=== PATIENT | male | born 1945 | race Caucasian/White ===

== ENCOUNTER 2020-07-14 08:52 | Outpatient (REF) | payer MEDICARE, SELFPAY ==
[2020-07-14 11:47] LABS: Vitamin B12 485 pg/mL (200-900)
[2020-07-15 21:32] LABS: Lyme Abs Screen <0.90 index
== END 2020-07-14 08:53 | disposition home or self-care (01) ==
LOC: HO.LAB 08:52
PROVIDERS: PCP Internal Medicine; Visit Provider Psychiatry & Neurology Neurology
DX: G20 Parkinson's disease (principal)
CPT/HCPCS: 82607; 86618

== ENCOUNTER 2020-09-14 08:04 | Outpatient (REF) | payer MEDICARE, SELFPAY ==
[2020-09-14 08:45] LABS: MANUAL DIFF FLAG NO
[2020-09-14 08:53] LABS: Basophils Percent Auto 0.5 % (0-2); Eosinophils Absolute Auto 0.3 X10*3/uL (0.0-0.4); Eosinophils Percent Auto 3.2 % (0-4); Hematocrit 44.6 % (42-52); Hemoglobin 14.4 g/dl (14.0-18.0); Imm Gran Abs Auto 0.03 X10*3/uL (0.00-0.03); Imm Gran Pct Auto 0.4 % (0.0-0.4); Lymphocytes Absolute Auto 1.9 X10*3/uL (1.2-4.9); Lymphocytes Percent Auto 24.2 % (20-40); Mean Corpuscular HGB Conc 32.3 g/dl (31.0-36.0); Mean Corpuscular Hemoglobin 32.1 pg (27.0-33.0); Mean Corpuscular Volume 99.3 fL (80-98); Mean Platelet Volume 9.8 fL (9.4-12.4); Monocytes Absolute Auto 0.6 X10*3/uL (0.1-1.2); Neutrophils Absolute Auto 5.1 X10*3/uL (2.0-8.3); Neutrophils Percent Auto 63.7 % (45-73); Platelet Count 183 X10*3/uL (160-400); Red Blood Count 4.49 X10*6/uL (4.60-5.80); Red Cell Distribution Width 13.1 % (11.0-16.0); White Blood Count 7.9 X10*3/uL (4.8-10.8)
[2020-09-14 09:21] LABS: Alanine Aminotransferase 6 U/L (0-40); Albumin Level 3.9 g/dL (3.5-5.0); Alkaline Phosphatase 115 U/L (39-117); Anion Gap 12 (12-20); Aspartate Amino Transferase 28 U/L (5-37); Bilirubin Total 0.6 mg/dL (0.0-1.0); Blood Urea Nitrogen 23 mg/dL (9-16); Calcium 8.6 mg/dL (8.4-10.2); Carbon Dioxide 27 mmol/L (22-29); Chloride 105 mmol/L (96-108); Estimated Glomerular Filt Rate 56; Glucose Random 110 mg/dL (60-115); Potassium 4.7 mmol/l (3.3-5.1); Sodium 139 mmol/L (135-145); Total Protein 7.2 g/dL (6.5-8.0)
[2020-09-14 09:42] LABS: Thyroid Stimulating Hormone 2.42 uIU/mL (0.32-4.0)
[2020-09-14 09:53] LABS: Vitamin B12 349 pg/mL (200-900)
== END 2020-09-14 08:05 | disposition home or self-care (01) ==
LOC: HO.LAB 08:04
PROVIDERS: Absent Provider Internal Medicine; PCP Internal Medicine; Visit Provider Internal Medicine
DX: E78.00 Pure hypercholesterolemia, unspecified (principal); I25.10 Atherosclerotic heart disease of native coronary artery without angina pectoris
CPT/HCPCS: 36415; 80053; 82607; 84443; 85025

== ENCOUNTER → 2020-09-15 09:23 | Outpatient (BNVA) | payer MEDICARE, SELFPAY | PROVIDERS: PCP Internal Medicine; Visit Provider Internal Medicine | DX: I25.10 Atherosclerotic heart disease of native coronary artery without angina pectoris (principal); I48.0 Paroxysmal atrial fibrillation; I95.1 Orthostatic hypotension; Z95.3 Presence of xenogenic heart valve | CPT/HCPCS: 99212 ==

== ENCOUNTER 2020-11-03 10:00 | Outpatient (RCR) | payer MEDICARE, SELFPAY ==
--- NOTE | 2020-10-13 14:33 | MHC.PT.EP ---
[facility] [place] Office [place] Office [place] Office [address] Saji Rivas 140 [facility] [phone] F: [phone] F: [phone] F: [phone] F: [phone] Physical Therapy Plan of Care Date of Evaluation: 10/13/20 Date of Surgery: Diagnosis: Parkinson's Disease Assessment: The patient is a pleasant 75 year old male that is interested in maintaining his current mobility status with a recent diagnosis of Parkinson's Disease. He would like to maintain his strength and current functional level. At this time he has significant rigidity in his thoracolumbar column as well as an altered gait pattern. He has some weakness in his postural muscles. He is a good candidate to improve his postural strength, functional balance. Frequency and Duration: The patient will be seen 2x/week x 4 weeks Short Term Goals: 1. Pt to be able to improve sit to stand posture and functional movement. 2. Pt to be able to improve understanding of HEP. 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 pt to be able to do all functional movements such as squatting, bending, and reaching overhead with good balance and motor control.. 2. Pt to be able to walk with a heel to toe reciprocal gait pattern with adequate toe clearance. Treatment Plan: Modalities to reduce pain, spasms and effusion. Manual therapy to restore motion and function. Therapeutic exercise to improve strength and flexibility. Neuromuscular re-education for posture and balance. Therapeutic activities to return to functional activities of daily living. Electronically signed by: Vanda Reyes PT DPT Please sign and return to therapist. Thank you for your referral.
--- NOTE | 2021-01-12 08:11 | MHC.PT.DC ---
[facility] [place] Office [place] Office [place] Office [address] Saji Rivas [address] [phone] F: [phone] F: [phone] F: [phone] F: [phone] Physical Therapy Discharge Report Diagnosis: Parkinson's Disease Date of Surgery: 2019 Date of Evaluation: 10/13/20 Date of Discharge: 12/12/20 Treatments to Date: 5 Cancellations to Date: 0 No Shows to Date: 0 Discharge Status: Independent with HEP Discharge Summary: Pt d/c from skilled PT. He had been given a HEP with pictures and instructions. Electronically signed by: Vanda Reyes PT DPT Please sign and return to therapist. Thank you for your referral.
== END 2021-06-08 13:32 | disposition home or self-care (01) ==
LOC: HO.PT 10:00
PROVIDERS: PCP Internal Medicine; Visit Provider Internal Medicine
DX: G20 Parkinson's disease (principal); R26.2 Difficulty in walking, not elsewhere classified
CPT/HCPCS: 97110; 97140; 97162; 97530

== ENCOUNTER 2021-02-18 13:34 | Outpatient (REF) | payer MEDICARE, SELFPAY ==
--- NOTE | ~2021-02-18 | XR_ITS ---
EXAMINATION: XR FOOT, LEFT CLINICAL INFORMATION: Left foot pain. Status post fall. COMPARISON: None. TECHNIQUE: AP, lateral, and oblique views of the left foot. FINDINGS: There is no visible acute fracture, dislocation or subluxation. Moderate hypertrophic spurring is seen along the dorsal intertarsal joints, calcaneal heel and retrocalcaneal regions. Moderate enthesophyte is also seen along the lateral sesamoid bone inferior to the distal 1st metatarsal. The ankle mortise and subtalar joints are normal. The soft tissues are normal. XR/XR foot LT min 3V IMPRESSION: No acute fracture or dislocation seen. Extensive degenerative spurring as described above. No abnormal soft tissue swelling.
== END 2021-02-18 13:35 | disposition home or self-care (01) ==
LOC: HO.XRAY 13:34
PROVIDERS: PCP Internal Medicine; Visit Provider Internal Medicine
DX: M79.672 Pain in left foot (principal); Z91.81 History of falling
CPT/HCPCS: 73630

== ENCOUNTER 2021-03-11 10:00 | Outpatient (RCR) | payer MEDICARE, SELFPAY ==
--- NOTE | 2021-01-31 16:10 | MHC.PT.EP ---
[facility] [place] Office [place] Office [place] Office [address] Saji Rivas [address] [phone] F: [phone] F: [phone] F: [phone] F: [phone] Physical Therapy Plan of Care Date of Evaluation: Date of Surgery: NA Diagnosis: PARKINSONS DISEASE Assessment: Pt IS 75 YO M WHO WAS RECENTLY SEEN IN PT FOR PARKINSONS (5 VISITS FROM 10/13/20-12/12/20) BUT HAD TO CANCEL LAST APPTS BECAUSE HIS 'S CA TREATMENTS. Pt REPORTS HE HAS BEEN WORKING ON SOME EXERCISES SINCE HE ENDED PT. REPORTS NO SPECIFIC LIMITATIONS AT THIS TIME BUT WANTS TO STAY AHEAD OF THE DISEASE. PRESENTS TO PT WITH SOME DECREASE IN HIP STRENGTH AND DECREASED BALANCE WITH REPORT THAT L LEG FEELS WEAKER THAN R AND HAS SOME L THIGH DISCOMFORT. Pt SHOULD BENEFIT FROM PT FOR BIG PROGRAM WITH TRANSITION TO CARDIAC REHAB AND/OR DOPAFIT UPON DC FROM PT. Frequency and Duration: The patient will be seen 2X/WK X 6 WKS Short Term Goals: 1. I HEP FOR LE/CORE STRENGTHENING 2. I BIG PROGRAM Intermediate Goals: 1. 30 SEC SIT<>STAND REPS>/= 11 2. INCREASE SLS TIME B >/= 10 SEC 3. DC PLAN FOR CONTINUING EX PROG (CARDIAC REHAB/DOPAFIT) Treatment Plan: Modalities to reduce pain, spasms and effusion. Manual therapy to restore motion and function. Therapeutic exercise to improve strength and flexibility. Neuromuscular re-education for posture and balance. Therapeutic activities to return to functional activities of daily living. Electronically signed by: WU BOLTON PT Please sign and return to therapist. Thank you for your referral.
--- NOTE | 2021-04-27 13:08 | MHC.PT.DC ---
[facility] [place] Office [place] Office [place] Office [address] Saji Rivas [address] [phone] F: [phone] F: [phone] F: [phone] F: [phone] Physical Therapy Discharge Report Diagnosis: PARKINSONS DISEASE Date of Surgery: NA Date of Evaluation: 01/31/21 Date of Discharge: 04/27/21 Treatments to Date: 6 Cancellations to Date: No Shows to Date: Discharge Status: Patient Elected to Stop Discharge Summary: Pt LAST SEEN ON 03/11/21 WHEN HE REPORTED SOME ANKLE PAIN AND REQUESTED SHORTENED SESSION. Pt THEN NOT SEEN AFTER THAT. PRIMARY PT CALLED Pt ON 04/27/21 TO ? STATUS. Pt REPORTS HE HAS CONTACTED HIS PCP FOR A NEW REFERRAL. ED THAT A NEW EVAL WILL BE DONE SINCE IT HAS BEEN OVER 1 MONTH SINCE LAST SESSION. ALSO QUESTIONED Pt RE DOPAFIT (PARKINSONS EX PROGRAM IN [place] THAT HE WAS GOING TO LOOK INTO, BUT HE SAID HE NEVER CONTACTED THEM OR STOPPED BY TO CHECK IT OUT). ED THAT THIS WOULD BE A GOOD RESOURCE FOR HIM AND A GOOD PROGRAM TO HELP MANAGE HIS PARKINSONS. WILL DC THIS CHART AT THIS TIME FOR RE-EVAL SOON Electronically signed by: WU BOLTON PT Please sign and return to therapist. Thank you for your referral.
== END 2021-04-27 13:20 | disposition home or self-care (01) ==
LOC: HO.PT 10:00
PROVIDERS: PCP Internal Medicine; Visit Provider Internal Medicine
DX: G20 Parkinson's disease (principal)
CPT/HCPCS: 97110; 97112; 97162; 97530

== ENCOUNTER 2021-06-10 09:51 | Outpatient (REF) | payer MEDICARE, SELFPAY ==
[2021-06-10 10:27] LABS: MANUAL DIFF FLAG NO
[2021-06-10 10:40] LABS: Basophils Percent Auto 0.5 % (0-2); Eosinophils Absolute Auto 0.1 X10*3/uL (0.0-0.4); Eosinophils Percent Auto 2.1 % (0-4); Hemoglobin 12.7 g/dl (14.0-18.0); Imm Gran Abs Auto 0.02 X10*3/uL (0.00-0.03); Imm Gran Pct Auto 0.3 % (0.0-0.4); Lymphocytes Absolute Auto 1.1 X10*3/uL (1.2-4.9); Lymphocytes Percent Auto 17.4 % (20-40); Mean Corpuscular HGB Conc 32.6 g/dl (31.0-36.0); Mean Corpuscular Hemoglobin 32.2 pg (27.0-33.0); Mean Platelet Volume 10.3 fL (9.4-12.4); Monocytes Absolute Auto 0.4 X10*3/uL (0.1-1.2); Monocytes Percent Auto 6.9 % (2-11); Neutrophils Absolute Auto 4.4 X10*3/uL (2.0-8.3); Neutrophils Percent Auto 72.8 % (45-73); Platelet Count 151 X10*3/uL (160-400); Red Blood Count 3.94 X10*6/uL (4.60-5.80); Red Cell Distribution Width 12.8 % (11.0-16.0); White Blood Count 6.1 X10*3/uL (4.8-10.8)
[2021-06-10 11:12] LABS: Alanine Aminotransferase 7 U/L (0-40); Albumin Level 3.5 g/dL (3.5-5.0); Alkaline Phosphatase 113 U/L (39-117); Anion Gap 9 (12-20); Aspartate Amino Transferase 25 U/L (5-37); Bilirubin Total 0.8 mg/dL (0.0-1.0); Blood Urea Nitrogen 13 mg/dL (9-16); Calcium 8.6 mg/dL (8.4-10.2); Carbon Dioxide 28 mmol/L (22-29); Chloride 107 mmol/L (96-108); Estimated Glomerular Filt Rate > 60; Glucose Random 214 mg/dL (60-115); Potassium 3.4 mmol/L (3.3-5.1); Sodium 141 mmol/L (135-145); Total Protein 6.8 g/dL (6.5-8.0); Uric Acid 4.3 mg/dL (3.4-7.0)
== END 2021-06-10 09:52 | disposition home or self-care (01) ==
LOC: HO.10HDL 09:51
PROVIDERS: Visit Provider Internal Medicine
DX: I25.10 Atherosclerotic heart disease of native coronary artery without angina pectoris (principal); E78.00 Pure hypercholesterolemia, unspecified; N18.9 Chronic kidney disease, unspecified; M10.9 Gout, unspecified
CPT/HCPCS: 36415; 80053; 84550; 85025

== ENCOUNTER 2021-06-14 10:03 | Outpatient (REF) | payer MEDICARE, SELFPAY ==
[2021-06-14 10:47] LABS: Estimated Average Glucose 111 mg/dL; Hemoglobin A1c % 5.5 %
== END 2021-06-14 10:04 | disposition home or self-care (01) ==
LOC: HO.10HDL 10:03
PROVIDERS: Visit Provider Internal Medicine
DX: R73.03 Prediabetes (principal)
CPT/HCPCS: 36415; 83036

== ENCOUNTER → 2021-07-18 14:05 | Outpatient (BNVA) | payer MEDICARE, SELFPAY | PROVIDERS: PCP Internal Medicine; Referring Provider Internal Medicine; Visit Provider Internal Medicine | DX: I25.10 Atherosclerotic heart disease of native coronary artery without angina pectoris (principal); I48.0 Paroxysmal atrial fibrillation; I95.1 Orthostatic hypotension; I44.0 Atrioventricular block, first degree; Z95.3 Presence of xenogenic heart valve | CPT/HCPCS: 93005; 99212 ==

== ENCOUNTER 2021-08-03 12:15 | Outpatient (REF) | payer MEDICARE, SELFPAY ==
[2021-08-03 12:27] LABS: MANUAL DIFF FLAG NO
[2021-08-03 13:11] LABS: Basophils Percent Auto 0.6 % (0-2); Eosinophils Absolute Auto 0.2 X10*3/uL (0.0-0.4); Eosinophils Percent Auto 2.6 % (0-4); Hematocrit 38.2 % (42.0-52.0); Hemoglobin 12.6 g/dl (14.0-18.0); Imm Gran Abs Auto 0.01 X10*3/uL (0.00-0.03); Imm Gran Pct Auto 0.2 % (0.0-0.4); Lymphocytes Absolute Auto 1.3 X10*3/uL (1.2-4.9); Lymphocytes Percent Auto 21.5 % (20-40); Mean Corpuscular Hemoglobin 32.7 pg (27.0-33.0); Mean Corpuscular Volume 99.2 fL (80.0-98.0); Mean Platelet Volume 10.5 fL (9.4-12.4); Monocytes Absolute Auto 0.5 X10*3/uL (0.1-1.2); Monocytes Percent Auto 7.9 % (2-11); Neutrophils Absolute Auto 4.15 x10*3/uL (2.0-8.3); Neutrophils Percent Auto 67.2 % (45-73); Platelet Count 167 X10*3/uL (160-400); Red Blood Count 3.85 X10*6/uL (4.60-5.80); Red Cell Distribution Width 13.2 % (11.0-16.0); White Blood Count 6.2 X10*3/uL (4.8-10.8)
[2021-08-03 13:31] LABS: Anion Gap 11 (12-20); Blood Urea Nitrogen 14 mg/dL (9-16); Calcium 8.6 mg/dL (8.4-10.2); Carbon Dioxide 29 mmol/L (22-29); Chloride 103 mmol/L (96-108); Estimated Glomerular Filt Rate 60; Glucose Random 227 mg/dL (60-115); Potassium 3.3 mmol/L (3.3-5.1); Sodium 140 mmol/L (135-145)
== END 2021-08-03 12:16 | disposition home or self-care (01) ==
LOC: HO.LAB 12:15
PROVIDERS: Visit Provider Internal Medicine
DX: Z01.818 Encounter for other preprocedural examination (principal); R73.03 Prediabetes; E78.00 Pure hypercholesterolemia, unspecified
CPT/HCPCS: 36415; 80048; 85025

== ENCOUNTER 2021-09-05 10:00 | Outpatient (RCR) | payer MEDICARE, SELFPAY ==
--- NOTE | 2021-07-01 16:07 | MHC.PT.EP ---
[facility] [place] Office [place] Office [place] Office [address] Saji Rivas [address] [phone] F: [phone] F: [phone] F: [phone] F: [phone] Physical Therapy Plan of Care Date of Evaluation: Date of Surgery: NA Diagnosis: MUSCLE WEAKNESS, PARKINSONS DISEASE, Assessment: Pt IS 75 YO M WITH PARKINSONS DISEASE REFERRED TO PT WITH MUSCLE WEAKNESS. Pt'S MAIN COMPLAINT AT THIS TIME IS NECK STIFFNESS AND DECREASED ABILITY TO HOLD HEAD UP. PRESENTS WITH POOR POSTURE (SIGNIF FWD HEAD AND HYPERKYPHOSIS), LIMITED CERVICAL AND SHLDER ROM WITH DECREASED CERV AND UE STRENGTH. Pt HAS BEEN SEEN IN PT IN PAST TO HELP WITH PARKINSONS AND HAS BEEN RECOMMENDED TO TRY DOPAFIT (EX PROGRAM FOR PARKINSONS PATIENTS ) FOR [facility]. SHOULD BENEFIT FROM PT TO HELP ALLEVIATED UPPER BACK/CERV MM TIGHTNESS AND STRENGTHEN UPPER BODY. SHOULD ALSO BENEFIT FROM Frequency and Duration: The patient will be seen 2X/WK X 4 WKS Short Term Goals: 1. INCREASED POSTURE AWARENESS AND AWARENESS NECK CARE 2. 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 DECREASED NECK PAIN AT LEAST 50% WITH ADLS 2. I HOME PROG WITH DC EX PLAN 3. INCREASED CERV ROM EXT 5 DEGREES, LAT FLEX 5 DEGREES, ROT 1/2 INCH Treatment Plan: Modalities to reduce pain, spasms and effusion. Manual therapy to restore motion and function. Therapeutic exercise to improve strength and flexibility. Neuromuscular re-education for posture and balance. Therapeutic activities to return to functional activities of daily living. Electronically signed by: WU BOLTON PT Please sign and return to therapist. Thank you for your referral.
--- NOTE | 2021-10-05 14:03 | MHC.PT.DC ---
[facility] [place] Office [place] Office [place] Office [address] Saji Rivas [address] [phone] F: [phone] F: [phone] F: [phone] F: [phone] Physical Therapy Discharge Report Diagnosis: MUSCLE WEAKNESS, PARKINSONS DISEASE, Date of Surgery: NA Date of Evaluation: 07/01/21 Date of Discharge: 10/05/21 Treatments to Date: 12 Cancellations to Date: No Shows to Date: Discharge Status: Improved Function Independent with HEP Patient Elected to Stop Discharge Summary: Pt LAST SEEN ON 09/05/21. PER ASSESSMENT FROM THAT VISIT:'SOME PLATEAU IN PT. TO GO TO [facility] IN NOV WITH RETURN IN NOVEMBER. SHOULD BENEFIT FROM CONTINUE ON OWN WITH FU IN NOVEMBER IF NEEDED FOR NECK/PARKINSONS WORK' Pt WAS TO HAVE ONE MORE PT SESSION THEN DC TO HOME PROGRAM, BUT Pt CALLED TO CANCEL LAST VISITS ( HAD SURGERY) Electronically signed by: WU BOLTON PT Please sign and return to therapist. Thank you for your referral.
== END 2021-10-05 14:03 | disposition home or self-care (01) ==
LOC: HO.PT 10:00
PROVIDERS: PCP Internal Medicine; Visit Provider Internal Medicine
DX: M62.81 Muscle weakness (generalized) (principal); G20 Parkinson's disease
CPT/HCPCS: 97110; 97140; 97162

== ENCOUNTER → 2022-01-10 10:19 | Outpatient (BNVA) | payer MEDICARE, SELFPAY | PROVIDERS: PCP Internal Medicine; Referring Provider Internal Medicine; Visit Provider Internal Medicine | DX: I25.10 Atherosclerotic heart disease of native coronary artery without angina pectoris (principal); I48.0 Paroxysmal atrial fibrillation; I95.1 Orthostatic hypotension; I44.0 Atrioventricular block, first degree; Z95.3 Presence of xenogenic heart valve | CPT/HCPCS: 99212 ==

== ENCOUNTER 2022-02-06 08:47 | Outpatient (REF) | payer MEDICARE, SELFPAY ==
[2022-02-06 09:23] LABS: MANUAL DIFF FLAG NO
[2022-02-06 09:42] LABS: Basophils Percent Auto 0.3 % (0-2); Eosinophils Absolute Auto 0.2 X10*3/uL (0.0-0.4); Eosinophils Percent Auto 3.7 % (0-4); Hematocrit 38.9 % (42.0-52.0); Hemoglobin 12.6 g/dl (14.0-18.0); Imm Gran Abs Auto 0.02 X10*3/uL (0.00-0.03); Imm Gran Pct Auto 0.3 % (0.0-0.4); Lymphocytes Absolute Auto 1.2 X10*3/uL (1.2-4.9); Lymphocytes Percent Auto 18.3 % (20-40); Mean Corpuscular HGB Conc 32.4 g/dl (31.0-36.0); Mean Corpuscular Hemoglobin 31.9 pg (27.0-33.0); Mean Corpuscular Volume 98.5 fL (80.0-98.0); Monocytes Absolute Auto 0.6 X10*3/uL (0.1-1.2); Monocytes Percent Auto 8.7 % (2-11); Neutrophils Absolute Auto 4.5 x10*3/uL (2.0-8.3); Neutrophils Percent Auto 68.7 % (45-73); Platelet Count 176 X10*3/uL (160-400); Red Blood Count 3.95 X10*6/uL (4.60-5.80); Red Cell Distribution Width 13.6 % (11.0-16.0); White Blood Count 6.6 X10*3/uL (4.8-10.8)
[2022-02-06 10:12] LABS: Alanine Aminotransferase < 6 U/L (0-40); Albumin Level 3.3 g/dL (3.5-5.0); Alkaline Phosphatase 135 U/L (39-117); Anion Gap 11 (12-20); Aspartate Amino Transferase 25 U/L (5-37); Bilirubin Total 0.8 mg/dL (0.0-1.0); Blood Urea Nitrogen 11 mg/dL (9-16); Carbon Dioxide 29 mmol/L (22-29); Chloride 104 mmol/L (96-108); Estimated Glomerular Filt Rate > 60; Glucose Random 108 mg/dL (60-115); Potassium 3.6 mmol/L (3.3-5.1); Sodium 140 mmol/L (135-145); Total Protein 7.4 g/dL (6.5-8.0)
== END 2022-02-06 08:48 | disposition home or self-care (01) ==
LOC: HO.LAB 08:47
PROVIDERS: PCP Internal Medicine; Visit Provider Internal Medicine
DX: D64.9 Anemia, unspecified (principal); E78.00 Pure hypercholesterolemia, unspecified; N40.0 Benign prostatic hyperplasia without lower urinary tract symptoms
CPT/HCPCS: 36415; 80053; 85025

== ENCOUNTER 2022-03-22 11:17 | Outpatient (REF) | payer MEDICARE, SELFPAY ==
[2022-03-22 13:47] LABS: MANUAL DIFF FLAG NO
[2022-03-22 14:11] LABS: Basophils Percent Auto 0.6 % (0-2); Eosinophils Absolute Auto 0.3 X10*3/uL (0.0-0.4); Eosinophils Percent Auto 4.6 % (0-4); Hematocrit 37.9 % (42.0-52.0); Hemoglobin 12.4 g/dl (14.0-18.0); Imm Gran Abs Auto 0.03 X10*3/uL (0.00-0.03); Imm Gran Pct Auto 0.5 % (0.0-0.4); Lymphocytes Absolute Auto 1.1 X10*3/uL (1.2-4.9); Lymphocytes Percent Auto 16.9 % (20-40); Mean Corpuscular HGB Conc 32.7 g/dl (31.0-36.0); Mean Corpuscular Hemoglobin 32.8 pg (27.0-33.0); Mean Corpuscular Volume 100.3 fL (80.0-98.0); Monocytes Absolute Auto 0.5 X10*3/uL (0.1-1.2); Monocytes Percent Auto 7.4 % (2-11); Neutrophils Absolute Auto 4.6 x10*3/uL (2.0-8.3); Platelet Count 137 X10*3/uL (160-400); Red Blood Count 3.78 X10*6/uL (4.60-5.80); Red Cell Distribution Width 13.7 % (11.0-16.0); White Blood Count 6.5 X10*3/uL (4.8-10.8)
[2022-03-22 14:13] LABS: Alanine Aminotransferase 8 U/L (0-40); Albumin Level 3.5 g/dL (3.5-5.0); Alkaline Phosphatase 159 U/L (39-117); Anion Gap 11 (12-20); Aspartate Amino Transferase 31 U/L (5-37); Bilirubin Total 0.7 mg/dL (0.0-1.0); Blood Urea Nitrogen 11 mg/dL (9-16); C Reactive Protein 1.09 mg/dL (< or = 0.50); Calcium 8.5 mg/dL (8.4-10.2); Carbon Dioxide 27 mmol/L (22-29); Chloride 107 mmol/L (96-108); Estimated Glomerular Filt Rate > 60; Glucose Random 102 mg/dL (60-115); Iron 92 mcg/dL (45-160); Percent Iron Saturation 41 % (15-50); Potassium 3.6 mmol/L (3.3-5.1); Sodium 141 mmol/L (135-145); Total Iron Binding Capacity 224 mcg/dL (228-428); Total Protein 7.3 g/dL (6.5-8.0); Unsaturated Iron Binding 132 ug/dL
[2022-03-22 14:40] LABS: Vitamin B12 261 pg/mL (200-900)
== END 2022-03-22 11:18 | disposition home or self-care (01) ==
LOC: HO.10HDL 11:17
PROVIDERS: Visit Provider Internal Medicine
DX: Z13.89 Encounter for screening for other disorder (principal)
CPT/HCPCS: 36415; 80053; 82607; 83540; 85025; 86140

== ENCOUNTER 2022-03-22 15:38 | Outpatient (REF) | payer MEDICARE, SELFPAY ==
--- NOTE | ~2022-03-22 | XR_ITS ---
EXAMINATION: XR CHEST CLINICAL INFORMATION: Weight loss COMPARISON: CT chest from 01/15/2015 TECHNIQUE: 2 views of the chest were obtained. FINDINGS: Chronic interstitial lung markings suggesting interstitial lung disease. Bilateral low lung volumes. No pneumothorax. Trachea is midline. Sternotomy wires. Cardiac mediastinal silhouette is not enlarged. Aorta demonstrates tortuosity with atherosclerotic calcifications. Valvular replacement. No large pleural effusion. Degenerative changes of the thoracolumbar spine. Soft tissues are unremarkable. XR/XR chest 2V IMPRESSION: 1. Chronic interstitial lung markings suggesting interstitial lung disease. 2. Bilateral low lung volumes.
== END 2022-03-22 15:39 | disposition home or self-care (01) ==
LOC: HO.XRAY 15:38
PROVIDERS: PCP Internal Medicine; Visit Provider Internal Medicine
DX: R63.4 Abnormal weight loss (principal); G62.9 Polyneuropathy, unspecified; G20 Parkinson's disease
CPT/HCPCS: 36415; 71046; 80053; 82607; 83540; 85025; 86140

== ENCOUNTER 2022-06-01 10:09 | Outpatient (REF) | payer MEDICARE, SELFPAY ==
--- NOTE | ~2022-06-01 | XR_ITS ---
EXAMINATION: XR CHEST CLINICAL INFORMATION: Cough COMPARISON: Chest x-ray 03/22/[address] 01/15/2015 TECHNIQUE: 2 views of the chest were obtained. FINDINGS: Stable cardiac silhouette. Patient is status post valvular replacement. The lungs are mildly hypoinflated. Similar chronic prominence of the interstitial markings diffusely. No lobar consolidation. No large pleural effusion. No pneumothorax. Degenerative changes of the spine. XR/XR chest 2V IMPRESSION: Stable chronic changes of the lungs without acute pulmonary pathology.
== END 2022-06-01 10:10 | disposition home or self-care (01) ==
LOC: HO.XRAY 10:09
PROVIDERS: PCP Internal Medicine; Visit Provider Internal Medicine
DX: R05.9 Cough, unspecified (principal)
CPT/HCPCS: 71046

== ENCOUNTER → 2022-07-18 10:38 | Outpatient (BNVA) | payer MEDICARE, SELFPAY | PROVIDERS: PCP Internal Medicine; Referring Provider Internal Medicine; Visit Provider Internal Medicine | DX: I44.30 Unspecified atrioventricular block (principal); I25.10 Atherosclerotic heart disease of native coronary artery without angina pectoris; I48.0 Paroxysmal atrial fibrillation; I95.1 Orthostatic hypotension; Z98.890 Other specified postprocedural states; Z95.1 Presence of aortocoronary bypass graft; Z95.3 Presence of xenogenic heart valve | CPT/HCPCS: 93005; 99212 ==

== ENCOUNTER → 2022-08-08 10:12 | Outpatient (REF) | payer MEDICARE, SELFPAY ==
--- NOTE | 2022-08-08 10:46 | CA_ITS ---
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 Normal LV systolic function with mild LVH with impaired relaxation filling pattern 2. Mildly dilated left atrium 3. Mildly reduced RV systolic function 4. Normally function bioprosthetic aortic valve with mean gradient of 11 mmHg 5. Normal RV systolic pressure 6. No gross pericardial effusion Findings Left Ventricle Normal left ventricular size and systolic function. There is mildly increased left ventricular wall thickness. The visually estimated ejection fraction is between 55-60%. Spectral Doppler is indicative of an impaired relaxation filling pattern. E/E prime ratio is <8, consistent with normal filling pressures. Right Ventricle Normal right ventricular cavity size. There is mildly decreased right ventricular systolic function. Atria The left atrium is mildly dilated. There is lipomatous hypertrophy of the interatrial septum. There is no evidence of interatrial shunt. The right atrium is normal in size. Aortic Valve A bioprosthetic aortic valve is present. The prosthetic aortic valve appears to be functioning normally. The mean gradient is 11 mmHg. There is trace (trivial) aortic valve regurgitation. Mitral Valve There is mild anterior and posterior mitral leaflet thickening. There is mild mitral annular calcification. There is trace mitral valve regurgitation. There is no mitral valve stenosis. Pulmonic Valve The pulmonic valve was not well visualized. Tricuspid Valve Normal tricuspid valve structure. There is trace tricuspid valve regurgitation. The right ventricular systolic pressure is normal. The right ventricular systolic pressure is 25 mmHg. Normal right atrial pressure. There is no evidence of pulmonary hypertension. Great Vessels All visible segments of the aorta are normal in size. The pulmonary artery was not well visualized. Venous The inferior vena cava is normal in size and collapses greater than 50% with inspiration. Pericardium/Pleural There is no evidence of pericardial effusion. Prior Study Comparison No significant change compared to prior study dated: 03/10/2020. Measurements 2D Linear Measurements IVSd: 1.47 0.6-0.9/0.6-1.0 cm LVIDd: 4.25 3.9-5.3/4.2-5.9 cm LVIDd Index: 2.28 2.4-3.2/2.2-3.1 cm/m2 LVIDs: 3.01 2.0-3.6 cm LVPWd: 1.28 0.7-1.1 cm LA Diam: 4.10 2.7-3.8/3.0-4.0 cm LAIDs Index: 2.20 1.5-2.3 cm/m2 LV Mass: 276.88 67-162/88-224 g LV Mass Index: 148.86 43-95/49-115 g/m2 LVOT Diam: 1.80 3.0+(-)1.3 cm 2D Systolic Function EF 4C: 57.50 >55% EF 2C: 54.90 >55% EF BiP: 56.50 >55% Mitral Valve MV Pk E: 0.95 MV PK A: 1.14 MV Decel Time: 138.00 E/A: 0.80 E'Lateral: 7.83 E'Medial: 5.66 E/E' Med: 16.70 E/E' Lat: 12.10 PHT: 40.00 MVA PHT: 5.50 Decel Milam: 6.85 Aortic Valve AoV Pk Cyrus: 2.28 AoV Mn Cyrus: 1.54 AoV VTI: 0.50 AoV Pk Grad: 21.00 Aov Mn Grad: 11.00 LAURA Cont.VTI: 1.20 LVOT LVOT Pk Cyrus: 0.90 LVOT Mn Cyrus: 0.63 LVOT VTI: 0.23 LVOT Pk Grad: 3.00 LVOT Mn Grad: 2.00 LVOT Diam: 1.80 LVOT Area: 2.54 Diastolic Function MV Pk E: 0.95 MV Pk A: 1.14 E/A: 0.80 E'Medial: 5.66 E/E' Med: 16.70 E' Laterial: 7.83 E/E' Lat: 12.10 Right Ventricle TAPSE (mm): 15.50 TVS' Cyrus: 5.85 Tricuspid Valve TR Pk Cyrus: 2.35 TR Pk Grad: 22.00 RA Press: 3.00 RVSP: 25.00 Great Vessels Aorta Sinus of Valsalva: 3.10 2.0-3.5 cm Ao Asc: 3.10 2.1-3.4 cm Pulmonary Valve PV Pk Cyrus: 0.86 Peak PV Grad: 3.00 Updated in Other Vendor System with Status of Final Preston Guerra MD electronically signed on 08/09/2022 3:29:36 PM with status of Final
--- NOTE | 2022-08-08 10:46 | HM_ITS ---
* Total monitoring time 2 days and 19 hours. * Underlying rhythm is sinus. Average ventricular rate 70/Min. Range 40 to 105/Min. * Evidence of Mobitz one second-degree heart block noted during living nurse hours. Another episode during daytime hours but ventricular rate is still 66/Min. * 1 instance of probable atrial tachycardia with block. During sleep hours. * Occasional PVCs/PACs. * No patient diary. MTDD
== END ==
LOC: HO.CARD 10:12
PROVIDERS: PCP Internal Medicine; Visit Provider Internal Medicine
DX: I44.30 Unspecified atrioventricular block (principal); Z95.3 Presence of xenogenic heart valve; I49.3 Ventricular premature depolarization
CPT/HCPCS: 93242; 93306

== ENCOUNTER 2022-08-22 10:28 | Outpatient (REF) | payer MEDICARE, SELFPAY ==
--- NOTE | ~2022-08-22 | XR_ITS ---
EXAMINATION: XR SHOULDER, LEFT CLINICAL INFORMATION: Pain. COMPARISON: None TECHNIQUE: AP external rotation, Grashey, scapular Y, and axillary views of the left shoulder. FINDINGS: There is reduction of the glenohumeral and AC joint space with periarticular spurring. There is cephalic migration of humeral head in relation to the glenoid with lateral acromial spurring. No loose bodies or bony erosive changes seen. There is osteopenia. XR/XR shoulder LT min 2V IMPRESSION: 1. Degenerative arthritic changes left shoulder joint. 2. There is cephalic migration of humeral head in relation to glenoid with lateral acromial spurring likely rotator cuff tear. 3. No visible acute fracture or dislocation seen.
== END 2022-08-22 10:29 | disposition home or self-care (01) ==
LOC: HO.XRAY 10:28
PROVIDERS: PCP Internal Medicine; Visit Provider Internal Medicine
DX: M25.512 Pain in left shoulder (principal)
CPT/HCPCS: 73030

== ENCOUNTER 2022-10-19 10:38 | Outpatient (REF) | payer MEDICARE, SELFPAY ==
--- NOTE | ~2022-10-19 | XR_ITS ---
EXAMINATION: XR SHOULDER, LEFT CLINICAL INFORMATION: Shoulder pain COMPARISON: Left shoulder radiographs 08/22/2022 TECHNIQUE: 3 views of the left shoulder are obtained. FINDINGS: There are chronic changes left shoulder with elevation humeral head and faceting of the acromium consistent with chronic rotator cuff degeneration. Mild degenerative changes glenohumeral joint. Greater degenerative changes acromioclavicular joint. Mild spurring at the greater tuberosity. The acromioclavicular alignment is normal. No visible rotator cuff calcifications. No fracture or dislocation or destructive process. There are postsurgical changes chest with aortic valve replacement, mediastinal clips and sternotomy wires. XR/XR shoulder LT min 2V IMPRESSION: -Chronic changes left shoulder consistent with chronic rotator cuff degeneration. -Degenerative changes glenohumeral joint and acromioclavicular joint.
== END 2022-10-19 10:39 | disposition home or self-care (01) ==
LOC: HO.HOSX 10:38
PROVIDERS: PCP Internal Medicine; Referring Provider Internal Medicine; Visit Provider Internal Medicine
DX: M19.012 Primary osteoarthritis, left shoulder (principal); M12.812 Other specific arthropathies, not elsewhere classified, left shoulder; G20 Parkinson's disease; I25.10 Atherosclerotic heart disease of native coronary artery without angina pectoris; I48.0 Paroxysmal atrial fibrillation; I95.1 Orthostatic hypotension; I44.30 Unspecified atrioventricular block; Z95.3 Presence of xenogenic heart valve; Z79.899 Other long term (current) drug therapy
CPT/HCPCS: 20610; 73030; 99202; 99212; J1040

== ENCOUNTER 2022-12-01 10:55 | Outpatient (REF) | payer MEDICARE, SELFPAY ==
[2022-12-01 13:59] LABS: MANUAL DIFF FLAG NO
[2022-12-01 14:38] LABS: Basophils Percent Auto 0.4 % (0-2); Eosinophils Absolute Auto 0.2 X10*3/uL (0.0-0.4); Eosinophils Percent Auto 2.7 % (0-4); Hemoglobin 10.9 g/dl (14.0-18.0); Imm Gran Abs Auto 0.02 X10*3/uL (0.00-0.03); Imm Gran Pct Auto 0.4 % (0.0-0.4); Lymphocytes Percent Auto 18.2 % (20-40); Mean Corpuscular HGB Conc 32.1 g/dl (31.0-36.0); Mean Corpuscular Hemoglobin 32.1 pg (27.0-33.0); Mean Platelet Volume 10.9 fL (9.4-12.4); Monocytes Absolute Auto 0.4 X10*3/uL (0.1-1.2); Monocytes Percent Auto 7.8 % (2-11); Neutrophils Percent Auto 70.5 % (45-73); Platelet Count 123 X10*3/uL (160-400); Red Cell Distribution Width 13.8 % (11.0-16.0); White Blood Count 5.7 X10*3/uL (4.8-10.8)
[2022-12-01 15:11] LABS: B Type Natriuretic Peptide 1706 pg/mL (<100)
[2022-12-01 15:23] LABS: Alanine Aminotransferase 10 U/L (0-40); Alkaline Phosphatase 134 U/L (39-117); Anion Gap 10 (12-20); Aspartate Amino Transferase 26 U/L (5-37); Bilirubin Total 0.9 mg/dL (0.0-1.0); Blood Urea Nitrogen 11 mg/dL (9-16); Calcium 8.1 mg/dL (8.4-10.2); Carbon Dioxide 34 mmol/L (22-29); Chloride 103 mmol/L (96-108); Estimated Glomerular Filt Rate > 60; Glucose Random 150 mg/dL (60-115); Potassium 2.8 mmol/L (3.3-5.1); Sodium 144 mmol/L (135-145); Total Protein 6.1 g/dL (6.5-8.0)
[2022-12-01 15:29] LABS: Thyroid Stimulating Hormone 1.67 uIU/mL (0.32-4.0)
== END 2022-12-01 10:56 | disposition home or self-care (01) ==
LOC: HO.10HDL 10:55
PROVIDERS: Visit Provider Internal Medicine
DX: R60.0 Localized edema (principal); E78.00 Pure hypercholesterolemia, unspecified; M10.9 Gout, unspecified
CPT/HCPCS: 36415; 80053; 83880; 84443; 85025

== ENCOUNTER → 2022-12-11 12:38 | Outpatient (BNVA) | payer MEDICARE, SELFPAY | PROVIDERS: PCP Internal Medicine; Visit Provider Psychiatry & Neurology Neurology | DX: G20 Parkinson's disease (principal); Z79.899 Other long term (current) drug therapy | CPT/HCPCS: 99202 ==

== ENCOUNTER 2023-01-08 14:04 | Outpatient (REF) | payer MEDICARE, SELFPAY ==
[2023-01-08 14:37] LABS: Immature Retic Fraction 7.3 % (2.3-13.4); Retic HGB Equivalent 36.2 pg (30.0-35.0); Reticulocyte Percent 1.1 % (0.5-1.8); Reticulocytes Absolute 0.037 X10*6/uL (0.026-0.095)
[2023-01-08 14:42] LABS: Estimated Average Glucose 108 mg/dL; Hemoglobin A1c % 5.4 %
[2023-01-08 15:02] LABS: Alanine Aminotransferase 8 U/L (0-40); Albumin Level 3.1 g/dL (3.5-5.0); Alkaline Phosphatase 146 U/L (39-117); Anion Gap 9 (12-20); Aspartate Amino Transferase 36 U/L (5-37); Bilirubin Total 0.7 mg/dL (0.0-1.0); Blood Urea Nitrogen 10 mg/dL (9-16); Calcium 8.3 mg/dL (8.4-10.2); Carbon Dioxide 31 mmol/L (22-29); Chloride 108 mmol/L (96-108); Estimated Glomerular Filt Rate > 60; Glucose Random 91 mg/dL (60-115); Iron 60 mcg/dL (45-160); Percent Iron Saturation 33 % (15-50); Potassium 4.3 mmol/L (3.3-5.1); Sodium 144 mmol/L (135-145); Total Iron Binding Capacity 180 mcg/dL (228-428); Total Protein 6.7 g/dL (6.5-8.0); Unsaturated Iron Binding 120 ug/dL
[2023-01-08 15:07] LABS: B Type Natriuretic Peptide 1934 pg/mL (<100)
== END 2023-01-08 14:05 | disposition home or self-care (01) ==
LOC: HO.LAB 14:04
PROVIDERS: PCP Internal Medicine; Visit Provider Internal Medicine
DX: R60.9 Edema, unspecified (principal); R73.03 Prediabetes; E87.6 Hypokalemia; D64.9 Anemia, unspecified
CPT/HCPCS: 36415; 80053; 83036; 83540; 83880; 85045

== ENCOUNTER 2023-01-19 08:41 | Outpatient (REF) | payer MEDICARE, SELFPAY ==
--- NOTE | ~2023-01-19 | XR_ITS ---
EXAMINATION: XR SHOULDER, LEFT CLINICAL INFORMATION: Shoulder pain COMPARISON: 10/19/2022 TECHNIQUE: AP external rotation, Grashey, scapular Y, and axillary views of the left shoulder. FINDINGS: Chronic changes of the left shoulder with elevation of the humeral head and osteophytosis of the acromion. Moderate degenerative changes of the acromioclavicular joint. Partially visualized mediastinal clips and aortic valve repair. Median sternotomy wires are noted. XR/XR shoulder LT min 2V IMPRESSION: Chronic changes of the left shoulder with elevation of the humeral head and osteophytosis of the acromion.
== END 2023-01-19 08:42 | disposition home or self-care (01) ==
LOC: HO.HOSX 08:41
PROVIDERS: Visit Provider Physician Assistant
DX: M19.012 Primary osteoarthritis, left shoulder (principal)
CPT/HCPCS: 73030; 99212

== ENCOUNTER → 2023-01-29 13:09 | Outpatient (BNVA) | payer MEDICARE, SELFPAY | PROVIDERS: PCP Internal Medicine; Referring Provider Internal Medicine; Visit Provider Internal Medicine | DX: I25.10 Atherosclerotic heart disease of native coronary artery without angina pectoris (principal); I48.0 Paroxysmal atrial fibrillation; I95.1 Orthostatic hypotension; I44.30 Unspecified atrioventricular block; G20 Parkinson's disease; Z95.3 Presence of xenogenic heart valve | CPT/HCPCS: 93005; 99212 ==

== ENCOUNTER 2023-02-13 09:29 | Outpatient (REF) | payer MEDICARE, SELFPAY ==
--- NOTE | ~2023-02-13 | CT_ITS ---
EXAMINATION: CT HEAD WITHOUT CONTRAST CLINICAL INFORMATION: Parkinson's, fall, weakness. COMPARISON: None available. TECHNIQUE: Contiguous axial imaging was performed from the skull base to vertex without intravenous administration of contrast. This CT examination was performed using dose optimization techniques as appropriate, variously including the following: *Automated exposure control *Adjustment of mA and/or kV according to patient size (this includes techniques or standardized protocols for targeted exams where dose is matched to indication/reason for exam; i.e. extremities or head) *Use of iterative reconstruction technique DLP: 643 mGy-cm FINDINGS: There is no acute intra-axial, extra-axial bleed, masses or midline shift. There is no acute infarction evolution. There is no edema. The avendaño to white matter differentiation is maintained normal. No abnormality seen in the posterior fossa. The lateral ventricles are symmetrical in size and configuration without enlargement. Bone windows reveal no calvarial abnormality. Bilateral paranasal sinuses and mastoid air cells are well-aerated. CT/CT head/brain wo IV con IMPRESSION: No acute intracranial process seen.
== END 2023-02-13 09:30 | disposition home or self-care (01) ==
LOC: HO.CT 09:29
PROVIDERS: Visit Provider Internal Medicine
DX: G20 Parkinson's disease (principal); Z91.81 History of falling
CPT/HCPCS: 70450

== ENCOUNTER 2023-02-13 13:00 | Outpatient (RCR) | payer MEDICARE, SELFPAY ==
--- NOTE | 2023-01-10 13:31 | MHC.PT.EP ---
[facility] [place] Office [place] Office [place] Office [address] Ev[address] [phone] F: [phone] F: [phone] F: [phone] F: [phone] Physical Therapy Plan of Care Date of Evaluation: Date of Surgery: n/a Diagnosis: parkinsons disease, BIG program Assessment: Patient is a 77 year old male presenting to PT with dx of parkinsons disease. Pt reports dx was 3 years ago. He presents today with impairments in gait mechanics, endurance, amplitude of movement, safety, balance. Pt's current occupation is retired, with baseline physical activities including ADLs, ambulating, stair negotiation, transfers. Pt expresses intermediate goal of improving endurance, and is motivated to work towards this in PT. Clinical presentation today is most consistent with signs and sx associated with parkinsons disease and pt will benefit from skilled PT 4 week x 4 weeks to address the following problems and impairments noted upon evaluation: gait mechanics, endurance, amplitude of movement, safety, balance. These problems limit the patient with the following functional activities: ADLs, ambulating, stair negotiation, transfers. The prescribed treatment plan of care is medically necessary. Co-morbidities of afib and parkinsons disease were identified and taken into considerations of plan of care. Pt was educated on HEP, role of PT, prognosis, POC. Frequency and Duration: The patient will be seen 4 x week x 4 weeks Short Term Goals: Pt will demonstrate compliance and understanding with initial BIG exercises at home in 1 week. Pt will demonstrate ability to stand with NBOS on foam in 2 weeks for improved balance. Group Home Goals: Pt will demonstrate improved DGI score by 2 points in 4 weeks for decreased risk of falls. Pt will demonstrate improved TUG score by 3 seconds in 4 weeks for decreased risk of falls. Treatment Plan: Modalities to reduce pain, spasms and effusion. Manual therapy to restore motion and function. Therapeutic exercise to improve strength and flexibility. Neuromuscular re-education for posture and balance. Therapeutic activities to return to functional activities of daily living. Electronically signed by: Haylee Walters, PT, DPT, ATC Please sign and return to therapist. Thank you for your referral.
--- NOTE | 2023-02-21 13:28 | MHC.PT.DC ---
[facility] [place] Office [place] Office [place] Office [address] Saji Rivas [address] [phone] F: [phone] F: [phone] F: [phone] F: [phone] Physical Therapy Discharge Report Diagnosis: parkinsons disease, BIG program Date of Surgery: n/a Date of Evaluation: 01/10/23 Date of Discharge: 02/21/23 Treatments to Date: 6 Cancellations to Date: 16 No Shows to Date: 3 Discharge Status: Recommend MD Follow-up Discharge Summary: Pt presented to his appointment today complaining of worsening SOB and intermittent blurred vision. He states this is getting worse recently and was so bad last night he needed assistance getting dressed. He and his are concerned. He has stopped driving as a result. At this point we have decided to stop skilled PT/the BIG program as it does not feel appropriate or safe to continue with the BIG program. He has had off and on attendance throughout the program anyway due to various medical issues and other things going on. I discussed with the pt and his that I recommend following up with his doctor so these new sx can be looked into further. I will also place a call to his referring provider regarding his new sx. Pt to be d/c at this time. Both the pt and his are understanding and in agreement with this plan today. Electronically signed by: Haylee Walters, PT, DPT, ATC Please sign and return to therapist. Thank you for your referral.
== END 2023-02-21 13:32 | disposition home or self-care (01) ==
LOC: HO.PTCHIC 13:00
PROVIDERS: PCP Internal Medicine; Visit Provider Psychiatry & Neurology Neurology
DX: G20 Parkinson's disease (principal)
CPT/HCPCS: 97112; 97162; 97530

== ENCOUNTER 2023-02-14 12:48 | Outpatient (REF) | payer MEDICARE, SELFPAY ==
--- NOTE | ~2023-02-14 | FL_ITS ---
EXAMINATION: XR ARTHROGRAM SHOULDER, LEFT CLINICAL INFORMATION: Left shoulder pain, COMPARISON: 01/19/2023 TECHNIQUE: Fluoroscopic-guided intra-articular injection of the left shoulder. FINDINGS: Informed consent was obtained from the patient prior to the procedure. During this process, the procedure and potential alternatives were explained, along with the intended outcome and benefits. The risks of the procedure, as well as the risk of not doing the procedure, were discussed. The patient was given the opportunity to ask questions regarding the procedure and appeared competent to make medical decisions. A signed consent form which documents this discussion was placed in the medical record. Using sterile technique and fluoroscopic guidance a 22-gauge spinal needle was directed into the glenohumeral joint. A small amount of contrast was administered demonstrating intra-articular positioning of the needle. A total of 80 mg of Depo-Medrol with 3 mL of 1% lidocaine was then injected into the shoulder joint. Patient tolerate procedure without difficulty. FLUOROSCOPY TIME: 1.3 minutes DOSE AREA PRODUCT: 4.423 Gy-cm2 (avendaño-centimeter squared) FL/FL arthrogram shoulder LT IMPRESSION: Intra-articular steroid injection of the left shoulder.
== END 2023-02-14 12:49 | disposition home or self-care (01) ==
LOC: HO.XRAY 12:48
PROVIDERS: PCP Internal Medicine; Visit Provider Physician Assistant
DX: M19.012 Primary osteoarthritis, left shoulder (principal)
CPT/HCPCS: 23350; 73040

== ENCOUNTER 2023-03-05 08:25 | Outpatient (REF) | payer MEDICARE, SELFPAY ==
[2023-03-05 08:37] LABS: MANUAL DIFF FLAG NO
[2023-03-05 08:50] LABS: Basophils Percent Auto 0.5 % (0-2); Eosinophils Absolute Auto 0.3 X10*3/uL (0.0-0.4); Eosinophils Percent Auto 4.9 % (0-4); Hematocrit 38.8 % (42.0-52.0); Hemoglobin 12.5 g/dl (14.0-18.0); Imm Gran Abs Auto 0.01 X10*3/uL (0.00-0.03); Imm Gran Pct Auto 0.2 % (0.0-0.4); Lymphocytes Percent Auto 18.7 % (20-40); Mean Corpuscular HGB Conc 32.2 g/dl (31.0-36.0); Mean Corpuscular Hemoglobin 32.3 pg (27.0-33.0); Mean Corpuscular Volume 100.3 fL (80.0-98.0); Mean Platelet Volume 10.6 fL (9.4-12.4); Monocytes Absolute Auto 0.3 X10*3/uL (0.1-1.2); Monocytes Percent Auto 5.8 % (2-11); Neutrophils Absolute Auto 3.9 x10*3/uL (2.0-8.3); Neutrophils Percent Auto 69.9 % (45-73); Platelet Count 114 X10*3/uL (160-400); Red Blood Count 3.87 X10*6/uL (4.60-5.80); Red Cell Distribution Width 13.4 % (11.0-16.0); White Blood Count 5.5 X10*3/uL (4.8-10.8)
[2023-03-05 09:30] LABS: Anion Gap 11 (12-20); Blood Urea Nitrogen 19 mg/dL (9-16); C Reactive Protein 0.14 mg/dL (< or = 0.50); Calcium 8.6 mg/dL (8.4-10.2); Carbon Dioxide 24 mmol/L (22-29); Chloride 111 mmol/L (96-108); Estimated Glomerular Filt Rate > 60; Glucose Random 95 mg/dL (60-115); Iron 104 mcg/dL (45-160); Percent Iron Saturation 48 % (15-50); Potassium 4.5 mmol/L (3.3-5.1); Sodium 141 mmol/L (135-145); Total Iron Binding Capacity 215 mcg/dL (228-428); Unsaturated Iron Binding 111 ug/dL
[2023-03-05 09:55] LABS: Vitamin B12 413 pg/mL (200-900)
== END 2023-03-05 08:26 | disposition home or self-care (01) ==
LOC: HO.LAB 08:25
PROVIDERS: PCP Internal Medicine; Visit Provider Internal Medicine
DX: D64.9 Anemia, unspecified (principal); G20 Parkinson's disease; Z91.81 History of falling
CPT/HCPCS: 36415; 80048; 82550; 82607; 83540; 85025; 86140

== ENCOUNTER → 2023-03-15 10:13 | Outpatient (BNVA) | payer MEDICARE, SELFPAY | PROVIDERS: PCP Internal Medicine; Visit Provider Nurse Practitioner Family | DX: G20 Parkinson's disease (principal) | CPT/HCPCS: 99212 ==

== ENCOUNTER 2023-03-20 06:19 | Emergency (ER) | payer MEDICARE, SELFPAY ==
[2023-03-20] VITALS (8 sets, daily range): BP systolic 119–152; BP diastolic 47–80; PULSE 75–102; RESP 14–20; TEMP 36.7–36.9; O2SAT 95–99; BMI 20.8
--- NOTE | ~2023-03-20 | CT_ITS ---
EXAMINATION: CT HEAD WITHOUT CONTRAST CLINICAL INFORMATION: Fall. Head injury. COMPARISON: Previous head CT January 2023 TECHNIQUE: Contiguous axial imaging was performed from the skull base to vertex without intravenous administration of contrast. This CT examination was performed using dose optimization techniques as appropriate, variously including the following: *Automated exposure control *Adjustment of mA and/or kV according to patient size (this includes techniques or standardized protocols for targeted exams where dose is matched to indication/reason for exam; i.e. extremities or head) *Use of iterative reconstruction technique DLP: 816 mGy-cm FINDINGS: There is no evidence of an extra-axial collection. There is no evidence of intra or extra-axial hemorrhage. The ventricles and extra-axial CSF spaces are prominent suggestive of mild generalized atrophy. There is nonspecific periventricular white matter disease. No mass, mass effect or infarct is seen. No skull fracture. Mild inflammatory changes in the left maxillary sinus. Visualized paranasal sinuses mastoid air cells and middle ears are otherwise clear. CT/CT head/brain wo IV con IMPRESSION: No acute intracranial findings. Mild generalized atrophy and nonspecific periventricular white matter disease similar to recent exam.
--- NOTE | ~2023-03-20 | CT_ITS ---
EXAMINATION: CT PELVIS WITH CONTRAST CLINICAL INFORMATION: Pressure wound COMPARISON: Previous CT of the abdomen and pelvis November 2014 TECHNIQUE: Helical scanning was performed with submillimeter collimation through the pelvis with the use of oral contrast and during bolus intravenous injection of 85 mL of Omnipaque 350 intravenous contrast. Sagittal and coronal multiplanar 2-D reconstructions were obtained. This CT examination was performed using dose optimization techniques as appropriate, variously including the following: *Automated exposure control *Adjustment of mA and/or kV according to patient size (this includes techniques or standardized protocols for targeted exams where dose is matched to indication/reason for exam; i.e. extremities or head) *Use of iterative reconstruction technique DLP: 167 mGy-cm FINDINGS: There are bilateral hip replacements in satisfactory position. There is a minimally displaced fracture of the distal sacrum or proximal coccyx uncertain age. No associated soft tissue mass, fluid collection or abnormal air collection is seen. There are degenerative changes of the spine. . Large amount of stool in the colon suggestive of constipation. Bladder and prostate gland not well evaluated due to artifact from bilateral hip replacements. No ascites or adenopathy. No hernia. There is severe atherosclerotic disease. Dilated bilateral common iliac arteries measuring up to [address]/CT pelvis w IV con IMPRESSION: Fracture of the distal sacrum/proximal coccyx, age indeterminate. No associated soft tissue mass, fluid or abnormal air collection. Bilateral hip replacements in satisfactory position. Degenerative changes of the spine. Constipation and atherosclerotic disease.
--- NOTE | ~2023-03-20 | XR_ITS ---
EXAMINATION: XR CHEST CLINICAL INFORMATION: Bilateral lower extremity edema, falls COMPARISON: Chest 06/01/2022 TECHNIQUE: 2 views of the chest were obtained. FINDINGS: The patient is status post median sternotomy. The cardiomediastinal silhouette is stable. Patient is status post valvular replacement. Similar chronic prominence of the interstitial markings diffusely, left upper lobe greater than right. No lobar consolidation. No large pleural effusion. No pneumothorax. There are multilevel degenerative changes of the thoracic spine. There are chronic bilateral rotator cuff tears. XR/XR chest 2V IMPRESSION: Stable chronic changes of the lungs without acute pulmonary pathology.
--- NOTE | ~2023-03-20 | CT_ITS ---
EXAMINATION: CT CERVICAL SPINE WITHOUT CONTRAST CLINICAL INFORMATION: Multiple falls. Head injury. COMPARISON: None available. TECHNIQUE: Axial images through the cervical spine without IV contrast. Sagittal and coronal reconstructions on the technologist workstation were performed. This CT examination was performed using dose optimization techniques as appropriate, variously including the following: *Automated exposure control *Adjustment of mA and/or kV according to patient size (this includes techniques or standardized protocols for targeted exams where dose is matched to indication/reason for exam; i.e. extremities or head) *Use of iterative reconstruction technique DLP: 313 mGy-cm FINDINGS: Bone alignment is normal. No fracture or dislocation. Degenerative spondylosis from C4-C5 to C6-C7. Degenerative disc disease at C5-C6 and C6-C7. Degenerative changes at the C1 dens articulation. Prevertebral soft tissues are normal. Bilateral carotid calcification. Visualized lung apices are clear. Mild emphysematous changes. CT/CT cervical spine wo IV con IMPRESSION: Degenerative changes. No fracture or dislocation. Fleischner guidelines were followed.
--- NOTE | 2023-03-20 07:02 | ECG_ITS ---
Test Reason : fall Blood Pressure : / mmHG Vent. Rate : 091 BPM Atrial Rate : 091 BPM P-R Int : 260 ms QRS Dur : 102 ms QT Int : 000 ms P-R-T Axes : 106 -42 084 degrees QTc Int : 000 ms Sinus rhythm with 1st degree A-V block with frequent Premature ventricular complexes Left axis deviation Cannot rule out Anterior infarct , age undetermined QT difficult to measure due to PVCs. Abnormal ECG When compared with ECG of 07-NOV-2005 09:56, Significant changes have occurred Referred By: Monique Ball Electronically Signed By:STORM ISIDRO
--- NOTE | 2023-03-20 07:11 | ED.GENADULT ---
HPI - General Adult General Chief complaint: Fall Stated complaint: Fall Time Seen by Provider: 03/20/23 06:30 Source: patient, family (), EMS, RN notes reviewed and old records reviewed Mode of arrival: EMS Limitations: physical limitation History of Present Illness HPI narrative: Patient is a 77-year-old male with history of Parkinson's, paroxysmal afib, s/p aortic valve replacement, atherosclerotic cardiovascular dz presenting to the emergency department after second fall this week. Patient denies any complaints after today's fall. Patient states that he was attempting to get OOB around 5am today to go to the bathroom when he fell while transferring to his walker. He denies hitting his head, denies loss of consciousness. He denies any headache, vision changes, neck, or back pain. Patient and report new onset bilateral lower extremity edema since Sunday. does report that patient also had a fall on 03/16 and struck his head at that time, sustained abrasions to his forehead and nose which she has been applying bacitraicin to at night. Patient denies any chest pain, dyspnea, cough. Denies recent fevers. reports new wound to gluteal cleft and buttocks which patient brought to her attention on Sunday which she has been applying diaper cream to, states patient sits in a chair for the majority of the day. MD complaint: bilateral lower extremity edema Onset (ago): day(s) Location: lower extremity Radiation: non-radiation Severity: moderate Associated symptoms: denies other symptoms Treatments prior to arrival: none Related Data Home Medications Medication Instructions Recorded Confirmed acetaminophen 500 mg tablet 1,000 mg PO Q6H PRN 09/15/20 01/29/23 (Tylenol Extra Strength) aspirin 81 mg tablet,delayed 81 mg PO DAILY 09/15/20 01/29/23 release multivitamin 1 tab PO DAILY 09/15/20 01/29/23 allopurinol 100 mg tablet 200 mg PO BID 07/18/21 01/29/23 potassium chloride 10 mEq meq PO BID 12/11/22 01/29/23 capsule,extended release Previous Rx's Medication Instructions Recorded rosuvastatin 20 mg tablet 20 mg PO DAILY 90 days #90 tabs 10/30/22 carbidopa 25 mg-levodopa 100 mg See Rx Instructions PO QID #150 02/22/23 tablet tabs Allergies Allergy/AdvReac Type Severity Reaction Status Date / Time No Known Allergies Allergy Verified 03/15/23 10:47 Review of Systems Review of Systems: As per HPI. Yes all other systems are reviewed and are negative Constitutional: Constitutional: Reports as per [facility] Past Medical History Medical History Alcoholic liver disease Atherosclerotic cardiovascular disease Orthostatic hypotension PAF (paroxysmal atrial fibrillation) Parkinson disease Surgical History History of coronary artery bypass graft x 3 (~10/2019) S/P hip replacement Status post aortic valve replacement with bioprosthetic valve Family History Family History Father CVD (cardiovascular disease) Mother No problems noted. Social History Social History Alcohol intake: former Patient Tobacco Use Status: Never used Tobacco Advance Directives: Yes Advance Directives Information Provided: Yes Advance Directives on File: No Advance Directives Date on File: 07/07/20 Physical Exam ED Vital Signs: Vital Signs - 24 hr 03/20/23 06:39 03/20/23 07:29 03/20/23 08:18 Temperature 98.4 F 98.1 F Pulse Rate 95 89 84 Respiratory Rate 16 18 20 Blood Pressure 141/58 H 136/55 L 119/60 Pulse Oximetry 97 97 95 Oxygen Delivery Method Room Air Room Air Room Air 03/20/23 11:22 03/20/23 11:37 03/20/23 14:10 Temperature Pulse Rate 84 92 92 Respiratory Rate 18 20 Blood Pressure 119/60 138/69 152/70 H Pulse Oximetry 95 98 99 Oxygen Delivery Method Room Air Room Air 03/20/23 14:36 Temperature Pulse Rate 75 Respiratory Rate 14 Blood Pressure 125/47 L Pulse Oximetry 96 Oxygen Delivery Method Room Air BMI result Body Mass Index 20.8 Vital signs have been reviewed and appear to be correct. Blood pressure mildly elevated. Heart rate normal. Respiratory rate normal. Temperature normal. Oxygen saturation normal. Const General: cooperative, no acute distress, alert and ill appearing chronically Nutritional Appearance: underweight Orientation/consciousness: oriented to person, oriented to place, oriented to time and patient oriented x3 Limitations: no limitations HENMT Head: Yes No palpable skull fracture present, Yes normocephalic, Yes abrasion (multiple), No Mirza's sign, Yes contusion, No raccoon eyes and No periorbital ecchymosis Head images: 1. abrasion 2. abrasion/scab 3. abrasion 4. contusion/abrasion Ears: external ears normal and TM's normal bilaterally General nose exam: Normal external nose present, Normal nares present, Normal septum present and No nasal discharge present Face and sinus: Yes sinuses nontender and Yes face symmetric Mouth: oropharynx normal and moist mucous membranes Throat: Yes uvula midline Eyes Pupils: Equal, round and reactive pupils present EOM: EOMs intact bilaterally Neck Neck: Yes normal visual inspection and Yes supple Chest Chest palpation & inspection: normal inspection of the chest and normal palpation of entire chest wall Resp Effort & Inspection: normal respiratory effort and able to speak in complete sentences Auscultation: clear to auscultation bilaterally Cardio Rate: regular rate Rhythm: regular rhythm Heart sounds: S1 normal heart sound present and S2 normal heart sound present GI Palpation (GI): Soft to palpation and nontender Auscultation: normoactive bowel sounds General: Yes no CVA tenderness Back/Spine/Pelvis Back: no CVA tenderness Cervical Spine: No Cervical spine tenderness and No step off deformity Thoracic/Lumbar Spine: No thoracic spinal tenderness and No lumbar spinal tenderness Pelvis: no pain with anterior-posterior compression and no pain with lateral compression Skin Other: General skin exam: abnormal elasticity, decreased turgor and dry skin Trauma: other (ecchymosis left buttock) Wounds: wounds noted ulceration posterior sacrum bed dusky red and with undermining, margins with surrounding erythema and without odor Full body images: 1. cracking/peeling r/t edema Neuro General: oriented to person, oriented to place, oriented to time, patient oriented x3, moves all extremities, no focal motor deficits and CN's II-XI intact bilaterally Cranial nerves: Yes Equal, round and reactive pupils present Cognition (Neuro): normal cognition Extrem General: Yes full ROM and Yes no calf tenderness Right lower extremity: edema Details: pitting and 2+, ankle Details: edema Details: pitting and 2+ and foot Details: edema Location: diffusely Details: pitting and 2+ and vascular exam Details: dorsalis pedis pulse present and posterior tibial pulse present Left lower extremity: edema Details: pitting and 2+, ankle Details: pitting edema Details: pitting and 2+ and foot Details: edema Location: diffusely Details: pitting and 2+ and vascular exam Details: dorsalis pedis pulse present and posterior tibial pulse present Psych Mental Status: mental status grossly normal Affect: normal affect Thought process: Normal thought process present Course Course Course Narrative: 9:12 No acute findings on CT head/neck. No leukocytosis, alk phos elevate which is consistent with prior labs, troponin 20.2, will obtain delta trop, BNP elvated to 849 which appears chronic, saw cardiology on 01/29 and had repeat echo ordered. Lactic WNL. Awaiting results of pelvic CT. 10:31 CXR shows stable chronic changes without acute pathology, no pulmonary edema. CT pelvis shows fracture of distal sacrum/proximal coccyx, age indeterminate. 10:49 Spoke with LUIGI Romero hospitalist who feels patient is more appropriate for STR. Feel patient's frequent falls are likely related to exacerbation of Parkinson's. Ordered PT/CM evals. 11:23 Delta trop negative. 12:29 Per Merline from CM, patient accepted to [facility] for 14:30. Medications Administered Discontinued Medications Generic Name Dose Route Start Last Admin Trade Name Freq PRN Reason Stop Dose Admin Iohexol 85 ml 03/20/23 09:16 03/20/23 09:16 Iohexol 350 Mg/Ml 100 Ml Infus..Btl IV 03/20/23 09:17 85 ml ONCE ONE Administration Medical Decision Making Medical Decision Making [facility] Narrative: Patient is a 77-year-old male with history of Parkinson's, paroxysmal afib, s/p aortic valve replacement, atherosclerotic cardiovascular dz presenting to the emergency department after second fall this week. On exam patient is awake, A+Ox3, VS WNL, afebrile, no focal neurological deficits, PERRL, EOMs intact, abrasions and contusions to face and head, LS CTA throughout, pressure wound to sacrum/coccyx, scabs and flaking to bilateral lower extremities with 2+ pitting edema, 2+ PT pulses bilaterally. Concern for ICH/SAH, skull or cervical fracture, fluid overload, electrolyte abnormality, UTI, pressure injury infection/tract. Unlikely sepsis, VS normal, will continue to reassess. Plan: labs including blood cultures, CXR, UA, CT pelvis to assess for tunnelling of wound Differential Diagnosis Differential Diagnoses: The differential diagnosis associated with the presentation includes As above. Admission/Observation Consideration of admission/observation: Escalation of care including admission/observation considered Lab Data MDM Lab Attestation statement: I reviewed the patient's lab results. 03/20/23 07:45 03/20/23 07:45 Labs: Lab Results 03/20/23 03/20/23 03/20/23 Range/Units 07:45 07:45 07:45 WBC 6.9 (4.8-10.8) X10*3/uL RBC 3.33 L (4.60-5.80) X10*6/uL Hgb 10.8 L (14.0-18.0) g/dl Hct 32.9 L (42.0-52.0) % MCV 98.8 H (80.0-98.0) fL MCH 32.4 (27.0-33.0) pg MCHC 32.8 (31.0-36.0) g/dl RDW 13.8 (11.0-16.0) % Plt Count 106 L (160-400) X10*3/uL MPV 10.0 (9.4-12.4) fL Immature Gran % (Auto) 0.4 (0.0-0.4) % Neut % (Auto) 76.6 H (45-73) % Lymph % (Auto) 10.8 L (20-40) % [place] % (Auto) 7.9 (2-11) % Eos % (Auto) 3.9 (0-4) % Baso % (Auto) 0.4 (0-2) % Lymph # (Auto) 0.7 L (1.2-4.9) X10*3/uL [place] # (Auto) 0.5 (0.1-1.2) X10*3/uL Eos # (Auto) 0.3 (0.0-0.4) X10*3/uL Baso # (Auto) 0.0 (0.0-0.2) X10*3/uL Abs Immat Gran (auto) 0.03 (0.00-0.03) X10*3/uL Absolute Neuts (auto) 5.3 (2.0-8.3) x10*3/uL Absolute Nucleated RBC 0.000 (0.0-0.012) X10*3/uL Nucleated RBC % (auto) 0.0 (0.0-0.2) /100WBC Sodium 143 (135-145) mmol/L Potassium 3.6 (3.3-5.1) mmol/L Chloride 112 H (96-108) mmol/L Carbon Dioxide 21 L (22-29) mmol/L Anion Gap 14 (12-20) BUN 15 (9-16) mg/dL Creatinine 0.95 (0.5-1.4) mg/dL Estim Creat Clear Calc 59.7 Estimated GFR > 60 Random Glucose 82 (60-115) mg/dL Lactic Acid (0.5-2.0) mmol/L Calcium 8.8 (8.4-10.2) mg/dL Total Bilirubin 0.8 (0.0-1.0) mg/dL AST 32 (5-37) U/L ALT 6 (0-40) U/L Alkaline Phosphatase 163 H (39-117) U/L Troponin I High Sens 20.2 (<3.5-35.0) ng/L B-Natriuretic Peptide (<100) pg/mL Total Protein 6.6 (6.5-8.0) g/dL Albumin 3.1 L (3.5-5.0) g/dL Urine Color Urine Appearance Urine pH (5.0-9.0) Ur Specific [place] (1.005-1.025) Urine Protein (Neg-Trace) mg/dL Urine Glucose (UA) (Negative) mg/dL Urine Ketones (Negative) mg/dL Urine Blood (Negative) Urine Nitrite (Negative) Ur Leukocyte Esterase (Negative) Urine RBC (0-2) /HPF Urine WBC (0-5) /HPF Ur Squamous Epith Cells (0-2) /HPF Calcium Oxalate Crystal Urine Bacteria (None Seen) Hyaline Casts (0-2) /LPF COVID-19 (MARS) (Negative) COVID-19 Clin Com 03/20/23 03/20/23 03/20/23 Range/Units 07:45 08:13 08:44 WBC (4.8-10.8) X10*3/uL RBC (4.60-5.80) X10*6/uL Hgb (14.0-18.0) g/dl Hct (42.0-52.0) % MCV (80.0-98.0) fL MCH (27.0-33.0) pg MCHC (31.0-36.0) g/dl RDW (11.0-16.0) % Plt Count (160-400) X10*3/uL MPV (9.4-12.4) fL Immature Gran % (Auto) (0.0-0.4) % Neut % (Auto) (45-73) % Lymph % (Auto) (20-40) % [place] % (Auto) (2-11) % Eos % (Auto) (0-4) % Baso % (Auto) (0-2) % Lymph # (Auto) (1.2-4.9) X10*3/uL [place] # (Auto) (0.1-1.2) X10*3/uL Eos # (Auto) (0.0-0.4) X10*3/uL Baso # (Auto) (0.0-0.2) X10*3/uL Abs Immat Gran (auto) (0.00-0.03) X10*3/uL Absolute Neuts (auto) (2.0-8.3) x10*3/uL Absolute Nucleated RBC (0.0-0.012) X10*3/uL Nucleated RBC % (auto) (0.0-0.2) /100WBC Sodium (135-145) mmol/L Potassium (3.3-5.1) mmol/L Chloride (96-108) mmol/L Carbon Dioxide (22-29) mmol/L Anion Gap (12-20) BUN (9-16) mg/dL Creatinine (0.5-1.4) mg/dL Estim Creat Clear Calc Estimated GFR Random Glucose (60-115) mg/dL Lactic Acid 0.8 (0.5-2.0) mmol/L Calcium (8.4-10.2) mg/dL Total Bilirubin (0.0-1.0) mg/dL AST (5-37) U/L ALT (0-40) U/L Alkaline Phosphatase (39-117) U/L Troponin I High Sens (<3.5-35.0) ng/L B-Natriuretic Peptide 849 H (<100) pg/mL Total Protein (6.5-8.0) g/dL Albumin (3.5-5.0) g/dL Urine Color Yellow Urine Appearance Clear Urine pH 5.5 (5.0-9.0) Ur Specific [place] 1.015 (1.005-1.025) Urine Protein 30 (1+) H (Neg-Trace) mg/dL Urine Glucose (UA) Negative (Negative) mg/dL Urine Ketones Negative (Negative) mg/dL Urine Blood Negative (Negative) Urine Nitrite Negative (Negative) Ur Leukocyte Esterase Negative (Negative) Urine RBC 0-2 (0-2) /HPF Urine WBC 0-5 (0-5) /HPF Ur Squamous Epith Cells 0-2 (0-2) /HPF Calcium Oxalate Crystal Present Urine Bacteria None Seen (None Seen) Hyaline Casts 0-2 (0-2) /LPF COVID-19 (MARS) (Negative) COVID-19 Clin Com 03/20/23 03/20/23 Range/Units 10:40 11:39 WBC (4.8-10.8) X10*3/uL RBC (4.60-5.80) X10*6/uL Hgb (14.0-18.0) g/dl Hct (42.0-52.0) % MCV (80.0-98.0) fL MCH (27.0-33.0) pg MCHC (31.0-36.0) g/dl RDW (11.0-16.0) % Plt Count (160-400) X10*3/uL MPV (9.4-12.4) fL Immature Gran % (Auto) (0.0-0.4) % Neut % (Auto) (45-73) % Lymph % (Auto) (20-40) % [place] % (Auto) (2-11) % Eos % (Auto) (0-4) % Baso % (Auto) (0-2) % Lymph # (Auto) (1.2-4.9) X10*3/uL [place] # (Auto) (0.1-1.2) X10*3/uL Eos # (Auto) (0.0-0.4) X10*3/uL Baso # (Auto) (0.0-0.2) X10*3/uL Abs Immat Gran (auto) (0.00-0.03) X10*3/uL Absolute Neuts (auto) (2.0-8.3) x10*3/uL Absolute Nucleated RBC (0.0-0.012) X10*3/uL Nucleated RBC % (auto) (0.0-0.2) /100WBC Sodium (135-145) mmol/L Potassium (3.3-5.1) mmol/L Chloride (96-108) mmol/L Carbon Dioxide (22-29) mmol/L Anion Gap (12-20) BUN (9-16) mg/dL Creatinine (0.5-1.4) mg/dL Estim Creat Clear Calc Estimated GFR Random Glucose (60-115) mg/dL Lactic Acid (0.5-2.0) mmol/L Calcium (8.4-10.2) mg/dL Total Bilirubin (0.0-1.0) mg/dL AST (5-37) U/L ALT (0-40) U/L Alkaline Phosphatase (39-117) U/L Troponin I High Sens 27.4 (<3.5-35.0) ng/L B-Natriuretic Peptide (<100) pg/mL Total Protein (6.5-8.0) g/dL Albumin (3.5-5.0) g/dL Urine Color Urine Appearance Urine pH (5.0-9.0) Ur Specific [place] (1.005-1.025) Urine Protein (Neg-Trace) mg/dL Urine Glucose (UA) (Negative) mg/dL Urine Ketones (Negative) mg/dL Urine Blood (Negative) Urine Nitrite (Negative) Ur Leukocyte Esterase (Negative) Urine RBC (0-2) /HPF Urine WBC (0-5) /HPF Ur Squamous Epith Cells (0-2) /HPF Calcium Oxalate Crystal Urine Bacteria (None Seen) Hyaline Casts (0-2) /LPF COVID-19 (MARS) Negative (Negative) COVID-19 Clin Com See Note Independent Interpretation I performed an independent interpretation of an: EKG and CT Scan Interpretation: EKG: sinus rhythm with first degree av block with frequent PVCs, left axis deviation, prolonged QT, rate 91bpm I independently reviewed the x-ray and CT scans agree with the radiologist's interpretation. Radiology Impression Discussion of test interpretation with radiology: I have reviewed the radiologist's reading. Radiologist Impression: FINDINGS: There is no evidence of an extra-axial collection. There is no evidence of intra or extra-axial hemorrhage. The ventricles and extra-axial CSF spaces are prominent suggestive of mild generalized atrophy. There is nonspecific periventricular white matter disease. No mass, mass effect or infarct is seen. No skull fracture. Mild inflammatory changes in the left maxillary sinus. Visualized paranasal sinuses mastoid air cells and middle ears are otherwise clear. ? CT/CT head/brain wo IV con IMPRESSION: No acute intracranial findings. Mild generalized atrophy and nonspecific periventricular white matter disease similar to recent exam. FINDINGS: Bone alignment is normal. No fracture or dislocation. Degenerative spondylosis from C4-C5 to C6-C7. Degenerative disc disease at C5-C6 and C6-C7. Degenerative changes at the C1 dens articulation. Prevertebral soft tissues are normal. Bilateral carotid calcification. Visualized lung apices are clear. Mild emphysematous changes.? CT/CT cervical spine wo IV con IMPRESSION: Degenerative changes. No fracture or dislocation. ? Fleischner guidelines were followed. FINDINGS: The patient is status post median sternotomy. The cardiomediastinal silhouette is stable. Patient is status post valvular replacement. Similar chronic prominence of the interstitial markings diffusely, left upper lobe greater than right. No lobar consolidation. No large pleural effusion. No pneumothorax. There are multilevel degenerative changes of the thoracic spine. There are chronic bilateral rotator cuff tears. XR/XR chest 2V IMPRESSION: Stable chronic changes of the lungs without acute pulmonary pathology. Discharge Plan Discharge Clinical Impression: Parkinson disease, symptomatic, Closed sacral fracture, Pressure injury of sacral region, stage 2 Patient Disposition: Xfer Inpatient Rehab Fac Transfer Details: to [facility] Prescriptions: No Action rosuvastatin 20 mg tablet 20 mg PO DAILY 90 Days Qty: 90 3RF carbidopa-levodopa 25-100 mg tablet See Rx Instructions PO QID Qty: 150 6RF Rx Instructions: 1.5 tab in am, 1 tab in afternnon, 1.5 tab in evening, and 1 tab qhs orally 4 times a day; aspirin 81 mg tablet,delayed release (DR/EC) 81 mg PO DAILY multivitamin Tablet 1 tab PO DAILY acetaminophen [Tylenol Extra Strength] 500 mg tablet 1,000 mg PO Q6H PRN allopurinol 100 mg tablet 200 mg PO BID potassium chloride 10 mEq capsule, extended release PO BID Referrals: [facility] [Other]
--- NOTE | 2023-03-20 07:24 | PC.NURSE ---
buttocks wound noted after cleaning pt, picture sent to [employer] to add to patient chart.
[2023-03-20 07:50] LABS: MANUAL DIFF FLAG NO
[2023-03-20 07:51] LABS: Basophils Percent Auto 0.4 % (0-2); Eosinophils Absolute Auto 0.3 X10*3/uL (0.0-0.4); Eosinophils Percent Auto 3.9 % (0-4); Hematocrit 32.9 % (42.0-52.0); Hemoglobin 10.8 g/dl (14.0-18.0); Imm Gran Abs Auto 0.03 X10*3/uL (0.00-0.03); Imm Gran Pct Auto 0.4 % (0.0-0.4); Lymphocytes Absolute Auto 0.7 X10*3/uL (1.2-4.9); Lymphocytes Percent Auto 10.8 % (20-40); Mean Corpuscular HGB Conc 32.8 g/dl (31.0-36.0); Mean Corpuscular Hemoglobin 32.4 pg (27.0-33.0); Mean Corpuscular Volume 98.8 fL (80.0-98.0); Monocytes Absolute Auto 0.5 X10*3/uL (0.1-1.2); Monocytes Percent Auto 7.9 % (2-11); Neutrophils Absolute Auto 5.3 x10*3/uL (2.0-8.3); Neutrophils Percent Auto 76.6 % (45-73); Platelet Count 106 X10*3/uL (160-400); Red Blood Count 3.33 X10*6/uL (4.60-5.80); Red Cell Distribution Width 13.8 % (11.0-16.0); White Blood Count 6.9 X10*3/uL (4.8-10.8)
[2023-03-20 08:14] LABS: Alanine Aminotransferase 6 U/L (0-40); Albumin Level 3.1 g/dL (3.5-5.0); Alkaline Phosphatase 163 U/L (39-117); Anion Gap 14 (12-20); Aspartate Amino Transferase 32 U/L (5-37); Bilirubin Total 0.8 mg/dL (0.0-1.0); Blood Urea Nitrogen 15 mg/dL (9-16); Calcium 8.8 mg/dL (8.4-10.2); Carbon Dioxide 21 mmol/L (22-29); Chloride 112 mmol/L (96-108); Creatinine Clr Calc Pharmacy 59.7; Estimated Glomerular Filt Rate > 60; Glucose Random 82 mg/dL (60-115); Potassium 3.6 mmol/L (3.3-5.1); Sodium 143 mmol/L (135-145); Total Protein 6.6 g/dL (6.5-8.0)
[2023-03-20 08:16] LABS: B Type Natriuretic Peptide 849 pg/mL (<100)
[2023-03-20 08:20] LABS: Appearance Urine Clear; Color Urine Yellow; Glucose Urine UA Negative (Negative); Leukocyte Esterase Urine Negative (Negative); Nitrite Urine Negative (Negative); PH 5.5 (5.0-9.0); Specific Gravity - Urine 1.015 (1.005-1.025); UMIC TRIGGER UACC YES; Urine Blood Negative (Negative); Urine Ketones Negative (Negative); Urine Protein 30 (1+) mg/dL (Neg-Trace)
[2023-03-20 08:21] LABS: Troponin-I High Sensitivity 20.2 ng/L (<3.5-35.0)
[2023-03-20 08:28] LABS: Bacteria Urine None Seen (None Seen); Calcium Oxalate Crystals Urine Present; Hyaline Casts Urine 0-2 /LPF (0-2); RBC Urine 0-2 /HPF (0-2); Squamous Epithelial Cell Urine 0-2 /HPF (0-2); WBC Urine 0-5 /HPF (0-5)
[2023-03-20 09:09] LABS: Lactic Acid 0.8 mmol/L (0.5-2.0)
[2023-03-20] MEDS: iohexoL 350 MG/ML 100 ML INFUS..BTL 85 ML IV (09:16)
--- NOTE | 2023-03-20 11:05 | PC.NURSE ---
pt and family aware of plan of care for pt/cm and denied having any questions.
[2023-03-20 11:17] LABS: Troponin-I High Sensitivity 27.4 ng/L (<3.5-35.0)
[2023-03-20 12:20] LABS: COVID-19 Test Negative (Negative); IDNOW Serial# BCCEAD1C
--- NOTE | 2023-03-20 12:37 | PC.NURSE ---
family and pt aware of plan for dc to [facility] at 1430. denied having any questions.
--- NOTE | 2023-03-20 12:40 | MHC.CM.ED ---
Received case management consult from Lucie MEYERS. Patient came to the ER due to a fall. Work up showed sacral fracture of indeterminate age. Patient also found to have a coccyx wound and Parkinson's exacerbation. Physical therapy eval completed. Acute rehab is recommended. Met with patient, Julia and [id number] Torri in regards to discharge planning. Patient lives with Julia, normally ambulates independently and had no services prior to coming to the hospital. PCP verified as Dr Bruno. Copy of HCP obtained from [facility]. Patient received 5 Covid vaccines. [facility] is [facility]'s first choice but is agreeable to referral being broadcasted to all 3 Acute rehabs. [facility] not have a bed available to offer. [facility] is able to offer a bed. Patient and Julia accept bed. Patient can leave at 230pm. [facility] booked. [facility] with chart. Patient, JuliaTorri Ellen Rn and Lucie MEYERS aware. Continue to monitor for d/c needs.
--- NOTE | 2023-03-20 14:01 | MHC.EDTECH ---
Pt ate 100% of lunch. Pt incontinent of stool and urine, washed up and all new bed linens in place. [place] cath applied.
== END 2023-03-20 15:51 ==
PROVIDERS: Registered Nurse Emergency; Emergency Provider Emergency Medicine; PCP Internal Medicine
DX: S32.10XA Unspecified fracture of sacrum, initial encounter for closed fracture (principal); L89.322 Pressure ulcer of left buttock, stage 2; G20 Parkinson's disease; R51.9 Headache, unspecified; R07.89 Other chest pain; R06.02 Shortness of breath; M54.2 Cervicalgia; I48.91 Unspecified atrial fibrillation; W01.10XA Fall on same level from slipping, tripping and stumbling with subsequent striking against unspecified object, initial encounter; Y93.9 Activity, unspecified; Y92.9 Unspecified place or not applicable; Y99.9 Unspecified external cause status; Z91.81 History of falling; Z20.822 Contact with and (suspected) exposure to COVID-19; Z20.828 Contact with and (suspected) exposure to other viral communicable diseases; Z79.01 Long term (current) use of anticoagulants; Z79.899 Other long term (current) drug therapy
CPT/HCPCS: 36415; 70450; 71046; 72125; 72193; 80053; 81001; 83605; 83880; 84484; 85025; 87040; 87635; 93005; 97162; 99285; Q9967

== ENCOUNTER 2023-04-09 10:47 | Outpatient (AMB) | payer MEDICARE, SELFPAY ==
--- NOTE | 2023-04-09 10:59 | MHC.OFFVIS ---
Intake Vital Signs 04/09/23 11:01 Weight 146 lb BP 145/63 H Blood Pressure Location Rt brachial Position Sitting Pulse 86 Intake Visit Reasons: sore on buttocks Intake Note: This patient presents for an assessment for multiple sores. Patient c/o; sore on buttocks, sore right heel, uses compression stockings. 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 this sacral area. He has Parkinson's disease and this seems to be progressively worsening. He spends a lot of time now just sitting down. His had noticed ulcer in the sacral area. She also sees a superficial ulcer on the right heel. He has been losing weight as well because of his Parkinson's disease. [facility] Medical History (Updated 04/09/23 @ 11:35 by Nikolay Lujan MD) Alcoholic liver disease Atherosclerotic cardiovascular disease Heel ulcer Orthostatic hypotension PAF (paroxysmal atrial fibrillation) Parkinson disease Ulcer of sacral region, stage 1 Surgical History History of coronary artery bypass graft x 3 (~10/2019) S/P hip replacement Status post aortic valve replacement with bioprosthetic valve Family History Father CVD (cardiovascular disease) Mother No problems noted. Social History Alcohol intake: former Patient Tobacco Use Status: Never used Tobacco Advance Directives Date on File: 07/07/20 Review of Systems Const Denies chills and Denies fever(s) Card Denies chest pain GI Denies abdominal pain Denies oliguria Musc Details: Tremors, difficulty with walking Reports abnormal gait Neuro Reports abnormal gait Physical Exam Vital Signs: Last Vital Signs Pulse 86 04/09/23 11:01 BP 145/63 H 04/09/23 11:01 Const Other: On wheelchair, able to stand up with assistance, tremors, obvious difficulty with balance General: comfortable and no acute distress Resp Effort & Inspection: normal respiratory effort Cardio Rate: regular rate GI Palpation (GI): Soft to palpation and not firm Back/Spine/Pelvis Other: Sacral ulcer, about 1.5 cm in diameter, involving the skin, with some redness doing this Extrem Other: Right heel ulcer, about 2 cm in diameter, involving the skin, not through the subcutaneous layer, not infected Assessment & Plan Assessment & Plan (1) Ulcer of sacral region, stage 1: Code(s): L98.429 - Non-pressure chronic ulcer of back with unspecified severity Plan: He has developed a sacral ulcer as described above due to his immobility. I have instructed his to make sure that he does not stay in the same position specially on his buttocks for prolonged periods of time. I have instructed her to check this ulcer daily she may apply skin protectant because of some redness in between the buttocks. Unfortunately, he has progressive Parkinson's disease so is at risk for developing more pressure ulcers down the line. (2) Heel ulcer: Code(s): L97.409 - Non-pressure chronic ulcer of unspecified heel and midfoot with unspecified severity Plan: This is also likely secondary to pressure from his shoes or from prolonged contact with a hard surface. I have instructed her on wound care with frequent dressing changes and to avoid using shoes at this point. Coding Level of Care Code New Pt Level 4 (37414) Diagnoses Ulcer of sacral region, stage 1 L98.429 Heel ulcer L97.409
[2023-04-09 11:01] VITALS: BP 145/63; PULSE 86
== END 2023-04-09 11:26 | disposition home or self-care (01) ==
PROVIDERS: PCP Internal Medicine; Visit Provider Surgery
DX: L98.429 Non-pressure chronic ulcer of back with unspecified severity (principal); L97.409 Non-pressure chronic ulcer of unspecified heel and midfoot with unspecified severity
CPT/HCPCS: 99204

== ENCOUNTER → 2023-04-09 10:47 | Outpatient (BNVA) | payer MEDICARE, SELFPAY | PROVIDERS: PCP Internal Medicine; Visit Provider Surgery | DX: L98.411 Non-pressure chronic ulcer of buttock limited to breakdown of skin (principal); L97.419 Non-pressure chronic ulcer of right heel and midfoot with unspecified severity; G20 Parkinson's disease; I25.10 Atherosclerotic heart disease of native coronary artery without angina pectoris; I10 Essential (primary) hypertension; Z95.1 Presence of aortocoronary bypass graft; Z95.3 Presence of xenogenic heart valve | CPT/HCPCS: 99202 ==

== ENCOUNTER 2023-04-13 07:51 | Outpatient (REF) | payer MEDICARE, SELFPAY ==
--- NOTE | ~2023-04-13 | CT_ITS ---
EXAMINATION: CT CHEST WITHOUT CONTRAST CLINICAL INFORMATION: Weight loss. Bladder cancer. COMPARISON: Previous chest x-ray March 2023 TECHNIQUE: Multidetector volumetric CT imaging of the chest was done. Axial MIP volume rendering provided. Sagittal and coronal reformatted images were obtained. This CT examination was performed using dose optimization techniques as appropriate, variously including the following: *Automated exposure control *Adjustment of mA and/or kV according to patient size (this includes techniques or standardized protocols for targeted exams where dose is matched to indication/reason for exam; i.e. extremities or head) *Use of iterative reconstruction technique DLP: 232 mGy-cm FINDINGS: RADIOLOGY ADMINISTRATOR: Volume loss to the left hemithorax and shift the central mediastinal structures to the left interstitial disease in the left lung. Post surgical changes to the heart. LUNGS: There is volume loss to the left hemithorax with shift the central mediastinal structures to the left. There is evidence of peripheral interstitial lung disease, with interlobular septal thickening and increased groundglass attenuation. There is mild traction bronchiolectasis seen in the lower lobes. This is greatest in the left upper and left lower lobes. There is evidence of mild emphysema. There is evidence of mild peripheral interstitial lung disease in the right lung. There are small coronary nodules or micronodules, largest measuring 3 mm in the left lower lobe axial image 299 series 5. No suspicious pulmonary nodule. No endobronchial or endotracheal lesion.. MEDIASTINUM: Enlarged heart. Aortic valve replacement and post-CABG changes. No pericardial effusion. No enlarged hilar or mediastinal lymph nodes. Normal caliber thoracic aorta and pulmonary arteries. CORONARY ARTERY CALCIFICATION: Severe. Post-CABG PLEURA: There is no pleural effusion. No pleural mass or thickening. AXILLA: No lymphadenopathy. UPPER ABDOMEN: Cirrhotic changes of the liver. Evidence of chronic pancreatitis. Atherosclerotic disease. OSSEOUS STRUCTURES: Degenerative changes of the older is and spine. median sternotomy. Old right rib fractures. CT/CT chest wo IV con IMPRESSION: Interstitial lung disease, left greater than right. Emphysema. Small pulmonary nodules or micronodules. Chest CT follow-up as per protocol. Fleischner guidelines were followed.
--- NOTE | ~2023-04-13 | CT_ITS ---
EXAMINATION: CT ABDOMEN AND PELVIS WITHOUT CONTRAST CLINICAL INFORMATION: Weight loss, bladder cancer. COMPARISON: CT abdomen and pelvis 11/05/2014. CT pelvis 03/20/2023. TECHNIQUE: Multidetector volumetric imaging was performed from the superior aspect of the liver through the pubic symphysis. Sagittal and coronal reformatted images were obtained on the technologist's workstation. This CT examination was performed using dose optimization techniques as appropriate, variously including the following: *Automated exposure control *Adjustment of mA and/or kV according to patient size (this includes techniques or standardized protocols for targeted exams where dose is matched to indication/reason for exam; i.e. extremities or head) *Use of iterative reconstruction technique DLP: 786 mGy-cm FINDINGS: LUNG BASES: Fibrotic changes at the left lung base. LIVER, GALLBLADDER, AND BILIARY TREE: The liver appears small and nodular which may reflect underlying cirrhosis. No discrete liver mass. No ductal dilatation. Cholelithiasis without evidence of cholecystitis. PANCREAS: There are diffuse coarse calcifications throughout the pancreas with dilatation of the pancreatic duct consistent with chronic pancreatitis. SPLEEN: The spleen is not enlarged. ADRENAL GLANDS: No adrenal mass. KIDNEYS AND URETERS: 4 mm nonobstructing calculus in the lower pole left kidney. Small simple cysts in the right kidney. No followup imaging is recommended. No hydroureteronephrosis. BLADDER: The urinary bladder is not well evaluated due to streak artifact from bilateral hip replacements. No discrete bladder mass is seen. GASTROINTESTINAL TRACT: Small bowel is normal in caliber. Moderate amount of stool in the colon. Mild colonic diverticulosis without evidence of diverticulitis. No mesenteric mass. ABDOMINAL WALL: No significant hernia is appreciated. LYMPH NODES: No lymphadenopathy. VASCULAR: 3 cm infrarenal abdominal aortic aneurysm. Previously this measured 2.4 cm 11/05/2014. Moderate aortoiliac atherosclerosis. PELVIC VISCERA: The prostate is not well visualized due to streak artifact from bilateral hip replacements. OSSEOUS STRUCTURES: Bilateral hip replacements. Degenerative changes in the spine. No compression fracture or discrete suspicious osseous lesion. Stable fracture with some callus formation of the sacrococcygeal junction. CT/CT abdomen pelvis wo IV con IMPRESSION: Limited visualization of the bladder and prostate due to streak artifact from the bilateral hip replacements. No discrete bladder mass is seen. No hydronephrosis. 4 mm nonobstructing calculus in the left lower kidney. No hydronephrosis. Shrunken nodular liver suggestive of cirrhosis. No splenomegaly. No ascites. Chronic pancreatitis. 3 cm infrarenal abdominal aortic aneurysm. Best Practice Recommendation: Based on published guidelines in J Am Irene Radiol 2013; 10(10):789-794 and J Vasc Surg. 2018; 67:2-77, the recommendation for an abdominal aortic aneurysm with diameter 3.0-3.4 cm is followup every 3 years. Fleischner guidelines were followed.
[2023-04-13] MEDS: Barium Sulfate Oral (Vanilla) 450 ML ORAL.SUSP 900 ML PO (10:44)
== END 2023-04-13 07:52 | disposition home or self-care (01) ==
LOC: HO.CT 07:51
PROVIDERS: Visit Provider Internal Medicine
DX: R63.4 Abnormal weight loss (principal); D64.9 Anemia, unspecified
CPT/HCPCS: 71250; 74176

== ENCOUNTER → 2023-04-26 10:44 | Outpatient (REF) | payer MEDICARE, SELFPAY ==
--- NOTE | 2023-04-26 10:47 | CA_ITS ---
Transthoracic Echocardiogram Patient (Last, First, Middle): Marlon Guy E Gender: Male Date of : 1945 Age: 77 Procedure Date: 04/26/2023 Procedure Type: Transthoracic Echocardiogram Location: OP Height: 172.72 cm Weight: 64.86 kg BSA: 1.77 m2 Heart Rate: 64 bpm BP: 148 / 58 mmHg Assistant Director Of Financial Aid: SB Referring MD: Jovanni Busby MD Windows Architect: Preston Guerra MD Symptoms: Z95.3 - Presence of xenogenic heart valve Study Quality: Adequate ECG Rhythm: Sinus Conclusions: - 1. Mildly reduced LV ejection fraction with LVEF of 45-50% with grade 2 diastolic dysfunction 2. At least moderately dilated left atrium 3. Increased gradient across the bioprosthetic aortic valve 19 mmHg, stenosis cannot be entirely ruled out 4. Mildly elevated right ventricular systolic pressure 5. No gross pericardial effusion Findings Left Ventricle Normal left ventricular cavity size. There is normal left ventricular wall thickness. The left ventricular systolic function is mildly decreased. The visually estimated ejection fraction is between 45-50%. Spectral Doppler is indicative of a pseudonormal filling pattern. E/E prime ratio is >15, consistent with elevated filling pressures. Evidence suggests grade II (moderate) diastolic dysfunction. There is moderate septal asymmetric hypertrophy. Wall Motion Rest Echo Findings The mid inferior and mid inferoseptal segments are hypokinetic. The basal inferior and basal inferoseptal segments are akinetic. All other scored wall segments showed normal motion. Right Ventricle Normal right ventricular cavity size. There is mild to moderately decreased right ventricular systolic function. Atria The left atrium is moderately dilated. Interatrial shunt cannot be excluded. The right atrium is likely dilated. Aortic Valve A bioprosthetic aortic valve is present. The peak aortic gradient is 32 mmHg.The mean gradient is 19 mmHg. increased gradient across the bioprosthetic aortic valve with mean gradient of 19 mmHg compared to 11 mmHg. Stenosis of the bioprosthetic valve cannot be entirely ruled out. The valve is well seated without any abnormal rocking motion. No significant aortic regurgitation is noted Mitral Valve There is mild anterior and posterior mitral leaflet thickening. There is mild mitral annular calcification. There is trace mitral valve regurgitation. There is no mitral valve stenosis. Pulmonic Valve The pulmonic valve was not well visualized. Tricuspid Valve Likely normal tricuspid valve structure and function. There is mild tricuspid valve regurgitation. Normal right atrial pressure. Mild pulmonary hypertension is present. Great Vessels The pulmonary artery was not well visualized. There is no dilatation of the ascending aorta measuring 3.40 cm. Venous The inferior vena cava is normal in size and collapses greater than 50% with inspiration. Pericardium/Pleural There is no evidence of pericardial effusion. Prior Study Comparison Changes noted compared to prior study dated: 08/08/2022. LV systolic function is mildly reduced on this study. Increased gradient across the bioprosthetic aortic valve. Measurements 2D Linear Measurements IVSd: 1.58 0.6-0.9/0.6-1.0 cm LVIDd: 4.50 3.9-5.3/4.2-5.9 cm LVIDd Index: 2.54 2.4-3.2/2.2-3.1 cm/m2 LVIDs: 3.46 2.0-3.6 cm LVPWd: 0.87 0.7-1.1 cm LA Diam: 4.50 2.7-3.8/3.0-4.0 cm LAIDs Index: 2.54 1.5-2.3 cm/m2 LV Mass: 254.36 67-162/88-224 g LV Mass Index: 143.71 43-95/49-115 g/m2 LVOT Diam: 1.60 3.0+(-)1.3 cm 2D Systolic Function EF 4C: 47.00 >55% EF 2C: 47.00 >55% EF BiP: 47.00 >55% Mitral Valve MV Pk E: 1.21 MV PK A: 1.18 MV Decel Time: 166.00 E/A: 1.00 E'Lateral: 4.57 E/E' Lat: 26.50 PHT: 49.00 MVA PHT: 4.49 Decel Linn: 7.29 Aortic Valve AoV Pk Cyrus: 2.84 AoV Mn Cyrus: 2.06 AoV VTI: 0.65 AoV Pk Grad: 32.00 Aov Mn Grad: 19.00 LAURA Cont.VTI: 0.83 LVOT LVOT Pk Cyrus: 1.10 LVOT Mn Cyrus: 0.79 LVOT VTI: 0.27 LVOT Pk Grad: 5.00 LVOT Mn Grad: 3.00 LVOT Diam: 1.60 LVOT Area: 2.01 Diastolic Function MV Pk E: 1.21 MV Pk A: 1.18 E/A: 1.00 E' Laterial: 4.57 E/E' Lat: 26.50 Right Ventricle TAPSE (mm): 14.70 TVS' Cyrus: 8.27 Tricuspid Valve TR Pk Cyrus: 3.11 TR Pk Grad: 39.00 RA Press: 3.00 RVSP: 42.00 Great Vessels Aorta Ao Asc: 3.40 2.1-3.4 cm Pulmonary Valve PV Pk Cyrus: 0.72 Peak PV Grad: 2.00 Updated in Other Vendor System with Status of Final Preston Guerra MD electronically signed on 04/27/2023 11:03:03 AM with status of Final
== END ==
LOC: HO.CARD 10:44
PROVIDERS: PCP Internal Medicine; Visit Provider Internal Medicine
DX: Z95.3 Presence of xenogenic heart valve (principal)
CPT/HCPCS: 93306

== ENCOUNTER → 2023-04-26 10:47 | Outpatient (BNV) | payer MEDICARE, SELFPAY | PROVIDERS: PCP Internal Medicine; Visit Provider Internal Medicine Cardiovascular Disease | DX: I34.81 Nonrheumatic mitral (valve) annulus calcification (principal); I36.1 Nonrheumatic tricuspid (valve) insufficiency | CPT/HCPCS: 93306 ==

== ENCOUNTER 2023-05-07 10:48 | Outpatient (AMB) | payer MEDICARE, SELFPAY ==
--- NOTE | 2023-05-07 10:50 | MHC.OFFVIS ---
Intake Vital Signs 05/07/23 10:51 Height 5 ft 10 in BMI Reason not done Patient refused/unable BP 146/58 H Blood Pressure Location Lt brachial Position Sitting Pulse 73 Intake Visit Reasons: 3 month follow up Intake Note: 3 month follow up Product Designer Required: No Accompanied by: Spouse Allergies No Known Allergies Allergy (Verified 05/07/23 10:54) Medication List - Last Reconciled 05/07/23 by Jovanni Busby MD acetaminophen (Tylenol Extra Strength) 1,000 mg PO Q6H PRN allopurinol 200 mg PO BID aspirin 81 mg PO DAILY carbidopa-levodopa 25-100 mg 1.5 tab in am, 1 tab in afternnon, 1.5 tab in evening, and 1 tab qhs orally 4 times a day; glycopyrrolate 1 mg PO DAILY PRN midodrine 2.5 mg PO TID multivitamin 1 tab PO DAILY potassium chloride ER mEq PO BID rosuvastatin 20 mg PO DAILY 90 days HPI HPI Comments History of Present Illness Details Marlon returns for follow-up regarding coronary disease. He has a history of CABG as well as bioprosthetic aortic valve replacement. From cardiac, no specific complaints like angina. He does have some shortness of breath activity. He is also extremely deconditioned. Frequent falls. Has a diagnosis of Parkinson's as well. Comes in a wheelchair. [facility] Medical History (Updated 04/09/23 @ 11:35 by Nikolay Lujan MD) Alcoholic liver disease Atherosclerotic cardiovascular disease Heel ulcer Orthostatic hypotension PAF (paroxysmal atrial fibrillation) Parkinson disease Ulcer of sacral region, stage 1 Surgical History History of coronary artery bypass graft x 3 (~10/2019) S/P hip replacement Status post aortic valve replacement with bioprosthetic valve Family History Father CVD (cardiovascular disease) Mother No problems noted. Social History Alcohol intake: former Patient Tobacco Use Status: Never used Tobacco Advance Directives Date on File: 07/07/20 Review of Systems Const Denies weakness ENT Denies dizziness Card Denies chest pain, Denies chest pain with activity, Denies syncope, Denies rapid heart rate, Denies pedal edema, Denies edema, Denies leg edema, Denies lightheadedness, Denies palpitations, Denies dyspnea, Denies dyspnea on exertion and Denies orthopnea Resp Denies cough, Denies dyspnea and Denies dyspnea on exertion GI Denies hematochezia and Denies change in stool character Musc Denies abnormal gait, Denies muscle cramps, Denies muscle weakness, Denies numbness, Denies radiating pain into limb and Denies tingling Neuro Denies abnormal gait, Denies dizziness, Denies syncope, Denies numbness, Denies tingling and Denies weakness Endo Denies palpitations Physical Exam Vital Signs: Last Vital Signs Pulse 73 05/07/23 10:51 BP 146/58 H 05/07/23 10:51 Const General: comfortable and no acute distress Orientation/consciousness: patient oriented x3 HEENT Other: Unremarkable Head: Yes normal to inspection Neck Neck: Yes normal visual inspection Chest Chest palpation & inspection: normal inspection of the chest Resp Auscultation: clear to auscultation bilaterally Cardio Palpation: normal PMI Heart sounds: S1 normal heart sound present, S2 normal heart sound present, no gallops, Murmur heart sound present systolic early, I/ and at the right sternal border and no rubs GI Palpation (GI): Soft to palpation Back/Spine/Pelvis Other: unremarkable Skin General skin exam: no rashes or lesions noted Neuro General: patient oriented x3 Extrem General: Yes normal to inspection Psych Mental Status: mental status grossly normal Assessment & Plan Assessment & Plan (1) Atherosclerotic cardiovascular disease: Code(s): I25.10 - Atherosclerotic heart disease of [place] coronary artery without angina pectoris Plan: Stable. Continue aspirin and statins. Last LDL 60mg/dl. (2) Status post aortic valve replacement with bioprosthetic valve: Code(s): Z95.3 - Presence of xenogenic heart valve Plan: In the most recent echocardiogram, LVEF 45-50% with moderate diastolic dysfunction. Wall motion abnormalities likely related to underlying coronary disease. In the earlier study, LVEF 55-60%. He does have elevation in cardiac BNP. However, no overt signs of congestive heart failure. He has got no clear volume overload. Chest CT scan has some interstitial lung disease as well as emphysema. With history of recurrent falls and being on midodrine, I am hesitant to put him on diuretics. We discussed about this today. Will hold off. Considering frailty and comorbidities, would not pursue any further workup at this time. (3) PAF (paroxysmal atrial fibrillation): Code(s): I48.0 - Paroxysmal atrial fibrillation Plan: Postoperative episodes. He was on short-term amiodarone. No known recurrences. (4) Orthostatic hypotension: Code(s): I95.1 - Orthostatic hypotension Plan: Could be from Parkinson's disease or its meds. He is now on midodrine too. (5) Heart block atrioventricular: Code(s): I44.30 - Unspecified atrioventricular block Plan: Stable. We will recheck Holter with next visit. (6) Parkinson disease: Code(s): G20 - Parkinson's disease Plan: Followed by Neurology. Plan Discussed with who came for appointment. Orders: Orders ECG 3 day holter monitor 6 Months I44.30 - Unspecified atrioventricular block Coding Level of Care Code Est Pt Level 4 (51743) Diagnoses Atherosclerotic cardiovascular disease I25.10 Status post aortic valve replacement with bioprosthetic valve Z95.3 PAF (paroxysmal atrial fibrillation) I48.0 Orthostatic hypotension I95.1 Heart block atrioventricular I44.30 Parkinson disease G20
[2023-05-07 10:51] VITALS: BP 146/58; PULSE 73
== END 2023-05-07 11:21 | disposition home or self-care (01) ==
PROVIDERS: PCP Internal Medicine; Referring Provider Internal Medicine; Visit Provider Internal Medicine
DX: I25.10 Atherosclerotic heart disease of native coronary artery without angina pectoris (principal); Z95.3 Presence of xenogenic heart valve; I48.0 Paroxysmal atrial fibrillation; I95.1 Orthostatic hypotension; I44.30 Unspecified atrioventricular block; G20 Parkinson's disease
CPT/HCPCS: 99214

== ENCOUNTER → 2023-05-07 10:48 | Outpatient (BNVA) | payer MEDICARE, SELFPAY | PROVIDERS: PCP Internal Medicine; Referring Provider Internal Medicine; Visit Provider Internal Medicine | DX: I44.30 Unspecified atrioventricular block (principal); I25.10 Atherosclerotic heart disease of native coronary artery without angina pectoris; I10 Essential (primary) hypertension; I48.0 Paroxysmal atrial fibrillation; I95.1 Orthostatic hypotension; R29.6 Repeated falls; G20 Parkinson's disease; Z95.1 Presence of aortocoronary bypass graft; Z95.3 Presence of xenogenic heart valve | CPT/HCPCS: 99212 ==

== ENCOUNTER 2023-05-29 10:24 | Outpatient (AMB) | payer MEDICARE, SELFPAY ==
--- NOTE | 2023-05-29 09:46 | A.OFFVIS_ITS ---
Intake Vital Signs 05/29/23 09:47 Height 5 ft 10 in Weight 146 lb BMI 20.9 Handedness Right Intake Visit Reasons: OV-Left Shoulder Intake Note: Marlon is a 77 year old male right hand dominant with hx of Parkinson disease presents today for his left shoulder pain, last injection 10/19/22. Patient reports his last injection gave him a week and a half of relief. He states he would like to repeat his injection. Allergies No Known Allergies Allergy (Verified 05/29/23 09:47) HPI OV-Left Shoulder HPI Details 77-year-old right hand dominant male, with a history of Parkinson?s disease, who presents in the office today for a follow up of left shoulder pain. The patient had a left shoulder intra-articular steroid injection on 10/19/2022 in the left shoulder. He states the last injection gave him a 1.5 weeks of relief. He would like a repeat injection while in the office today. REPLACED BY [facility] Medical History Alcoholic liver disease Atherosclerotic cardiovascular disease Heel ulcer Orthostatic hypotension PAF (paroxysmal atrial fibrillation) Parkinson disease Ulcer of sacral region, stage 1 Surgical History History of coronary artery bypass graft x 3 (~10/2019) S/P hip replacement Status post aortic valve replacement with bioprosthetic valve Family History Father CVD (cardiovascular disease) Mother No problems noted. Social History Alcohol intake: former Patient Tobacco Use Status: Never used Tobacco Advance Directives Date on File: 07/07/20 Review of Systems Const All systems reviewed & are unremarkable except as noted in HPI and below Physical Exam Vital Signs: BMI result Body Mass Index 20.9 Const General: cooperative, healthy appearing and no acute distress Orientation/consciousness: patient oriented x3 Resp Effort & Inspection: normal respiratory effort and able to speak in complete sentences Cardio Rate: regular rate Peripheral pulses: Peripheral pulses 2+ throughout GI Palpation (GI): Soft to palpation Skin Lesions: no lesions Rashes: no rashes Neuro General: patient oriented x3 Extrem Other: Left shoulder: Normal to inspection. No ecchymosis, erythema, or edema. Forward flexion and abduction to 45 degrees. External rotation to neutral. Pain with cross-body reach. 3/5 strength with empty can. Negative drop arm. NVI. Psych Mental Status: mental status grossly normal Office Procedures Joint Injection/Drain Joint Injection/Drain Primary Site: left shoulder Prep: site was prepped using aseptic technique, ethochloride spray was applied and injection warnings given Injected: 80 mg of, DepoMedrol, with 8 mL of (2% plain lido ) and in the subcromial space Approach Used: posterolateral Procedure: The patient tolerated the procedure well, but had some pain with the injection and there was some relief with the local anesthesia Coding 82920 - Large joint Procedure code (CPT) selection complete Results Reviewed Results Reviewed: 05/29/23 10:29 Lidocaine HCl 2 % MPF [Xylocaine 2 % MPF] 5 ml .ROUTE .STK-MED ONE methylPREDNISolone acetate [DEPO-MedroL] 80 mg .ROUTE .STK-MED ONE Assessment & Plan Assessment & Plan (1) Osteoarthritis of left shoulder: Code(s): M19.012 - Primary osteoarthritis, left shoulder (2) Rotator cuff arthropathy of left shoulder: Code(s): M12.812 - Other specific arthropathies, not elsewhere classified, left shoulder (3) Arthritis of left acromioclavicular joint: Code(s): M19.012 - Primary osteoarthritis, left shoulder Plan Mr. Guy is a 77-year-old right hand dominant male, with a history of Parkinson?s disease, who presents in the office today for a follow up of left shoulder pain. The patient had a left shoulder intra-articular steroid injection on 10/19/2022 in the left shoulder. He states the last injection gave him a 1.5 weeks of relief. He would like a repeat injection while in the office today. The patient was offered a cortisone injection in the left shoulder with 80 mg of DepoMedrol. The patient was explained the risk, benefits, and alternatives to receiving this injection. After receiving consent for the injection, the patient had the procedure done while in office today. The patient tolerated the procedure well with no complications. Follow up will be PRN, or sooner if needed. Patient Instructions: Scribed for Cayla Cobian PA-C by izabella Whitaker scribe, on 05/29/2023 at 10:26 am, EST. Coding Level of Care Code Est Pt Level 3 (88842) Diagnoses Osteoarthritis of left shoulder M19.012 Rotator cuff arthropathy of left shoulder M12.812 Arthritis of left acromioclavicular joint M19.012 CPT Codes Coding - 73195 Large joint: 16555 - Large joint ([id number])
[2023-05-29 09:47] VITALS: BMI 20.9
== END 2023-05-29 11:20 | disposition home or self-care (01) ==
PROVIDERS: PCP Internal Medicine; Visit Provider Physician Assistant
DX: M19.012 Primary osteoarthritis, left shoulder (principal)
CPT/HCPCS: 20610; 99213

== ENCOUNTER → 2023-05-29 10:24 | Outpatient (BNVA) | payer MEDICARE, SELFPAY | PROVIDERS: PCP Internal Medicine; Visit Provider Physician Assistant | DX: M19.012 Primary osteoarthritis, left shoulder (principal); M12.812 Other specific arthropathies, not elsewhere classified, left shoulder; G20 Parkinson's disease | CPT/HCPCS: 20610; 99212; J1040 ==

== ENCOUNTER 2023-06-06 10:15 | Outpatient (AMB) | payer MEDICARE, SELFPAY ==
[2023-06-06 10:27] VITALS: BP 102/57; PULSE 67; O2SAT 100; BMI 21.0
--- NOTE | 2023-06-06 10:27 | A.OFFVIS_ITS ---
Intake Vital Signs 06/06/23 10:27 Height 5 ft 10 in Weight 146 lb 4 oz BMI 21.0 BP 102/57 L Blood Pressure Location Rt brachial Position Sitting Pulse 67 Pulse Source Doppler Pulse Oximetry (%) 100 Oxygen Delivery Method Room Air Intake Visit Reasons: Shortness of breath Allergies No Known Allergies Allergy (Verified 06/06/23 10:31) HPI Shortness of breath HPI Details 77-year-old gentleman, former approximately 30 pack-year smoker, quit 30 years prior with underlying parkinsonian disease has referred for evaluation of dyspnea on exertion. Patient states that before this evaluation his dyspnea has resolved. He does have an underlying history of interstitial lung disease, noted at least [address] chest ordered by his primary care physician. Repeat CT chest shows slow progression of his underlying fibrosis [id number]. Patient denies family history of lung disease. He denies exposure to industrial dusts. [facility]LY [facility] Medical History Alcoholic liver disease Atherosclerotic cardiovascular disease Heel ulcer Orthostatic hypotension PAF (paroxysmal atrial fibrillation) Parkinson disease Ulcer of sacral region, stage 1 Surgical History History of coronary artery bypass graft x 3 (~10/2019) S/P hip replacement Status post aortic valve replacement with bioprosthetic valve Family History Father CVD (cardiovascular disease) Mother No problems noted. Social History Alcohol intake: former Patient Tobacco Use Status: Never used Tobacco Advance Directives Date on File: 07/07/20 Review of Systems Const Denies daytime sleepiness, Denies excessive sweating, Denies fatigue, Denies fever(s), Denies lethargy, Denies malaise, Denies night sweats, Denies snoring and Denies weight loss Eyes Denies blurry vision and Denies itchy eyes ENT Denies nasal congestion, Denies post nasal drip, Denies sinus pain, Denies sinus pressure and Denies other ( Thrush) Card Denies chest pain, Denies pedal edema, Denies dyspnea, Denies orthopnea and Denies paroxysmal nocturnal dyspnea Resp Denies cough, Denies hemoptysis, Denies excessive phlegm production, Denies dyspnea, Denies snoring and Denies wheezing GI Denies abdominal pain and Denies heartburn Musc Denies myalgias, Denies arthralgias and Denies joint swelling Skin/Breast Denies rash Neuro Denies memory loss and Reports other (Muscular rigidity) Psych Denies abnormal sleep pattern, Denies anxiety and Denies memory loss Endo Denies excessive sweating, Denies fatigue and Denies heat intolerance Carlos Alberto/Lymph Denies easy bruising Aller/Immun Denies itchy eyes, Denies seasonal rhinorrhea and Denies wheezing Physical Exam Vital Signs: Last Vital Signs Pulse 67 06/06/23 10:27 BP 102/57 L 06/06/23 10:27 Pulse Ox 100 06/06/23 10:27 Oxygen Delivery Method Room Air 06/06/23 10:27 BMI result Body Mass Index 21.0 Const General: no acute distress and alert Nutritional Appearance: not obese Orientation/consciousness: Other orientation findings ( oriented) HEENT Head: Yes atraumatic Eyes General: appearance normal, both eyes and all related structures Sclerae: sclerae normal EOM: EOMs intact bilaterally Neck Neck: Yes supple Lymphatic: no lymphadenopathy noted Resp Effort & Inspection: normal respiratory effort and no use of accessory muscles Auscultation: clear to auscultation bilaterally Cardio Rate: regular rate Rhythm: regular rhythm Heart sounds: no gallops, no murmurs and no rubs Skin General skin exam: other ( warm) Extrem General: No clubbing, No cyanosis and Yes edema (Trace bilateral) Assessment & Plan Assessment & Plan (1) Interstitial lung disease: Code(s): J84.9 - Interstitial pulmonary disease, unspecified Plan: Underlying slowly progressive interstitial lung disease based on changes from 9194-[address] chest and PFT in 12 months. Continue to monitor clinically. (2) Abnormal CT scan, chest: Code(s): R93.89 - Abnormal findings on diagnostic imaging of other specified body structures Plan: Slowly progressive interstitial lung disease with minimum emphysema. (3) Dyspnea on exertion: Code(s): R06.09 - Other forms of dyspnea Plan: Patient stated his dyspnea has resolved prior to this evaluation. Likely underlying multifactorial etiology including cardiac and pulmonary contribution. Coding Level of Care Code New Pt Level 4 (03453) Diagnoses Interstitial lung disease J84.[address] scan, chest R93.89 Dyspnea on exertion R06.09
== END 2023-06-06 10:52 | disposition home or self-care (01) ==
PROVIDERS: PCP Internal Medicine; Visit Provider Internal Medicine Pulmonary Disease
DX: J84.9 Interstitial pulmonary disease, unspecified (principal); R93.89 Abnormal findings on diagnostic imaging of other specified body structures; R06.09 Other forms of dyspnea
CPT/HCPCS: 99204

== ENCOUNTER → 2023-06-06 10:15 | Outpatient (BNVA) | payer MEDICARE, SELFPAY | PROVIDERS: PCP Internal Medicine; Visit Provider Internal Medicine Pulmonary Disease | DX: J84.9 Interstitial pulmonary disease, unspecified (principal); R93.89 Abnormal findings on diagnostic imaging of other specified body structures; R06.09 Other forms of dyspnea | CPT/HCPCS: 99202 ==

== ENCOUNTER 2023-06-20 11:00 | Outpatient (AMB) | payer MEDICARE, SELFPAY ==
--- NOTE | 2023-06-20 11:14 | MHC.OFFVIS ---
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 Pt's reports that he finished PT, OT and still does ST. However, he still has frequent falls, feels slow and having short steps. He uses waker at home and public. He is on Sinemet QID. 1.5 tab qAM, 1 tab in the afternoon, 1.5 tab q evening and 1 tab qHS. Pt's reports that pt sleeps a lot during daytime, and not physically active. He tries to drinks more water. Pt can have light headedness and dizziness sometimes. He denies constipation He denies hallucination Pt has occasional choking on food. [facility] Medical History Alcoholic liver disease Atherosclerotic cardiovascular disease Heel ulcer Orthostatic hypotension PAF (paroxysmal atrial fibrillation) Parkinson disease Ulcer of sacral region, stage 1 Surgical History History of coronary artery bypass graft x 3 (~10/2019) S/P hip replacement Status post aortic valve replacement with bioprosthetic valve Family History Father CVD (cardiovascular disease) Mother No problems noted. Social History (Updated 06/20/23 @ 11:16 by Mare Finney [employer]) Alcohol intake: former Patient Tobacco Use Status: Former Tobacco user Advance Directives Date on File: 07/07/20 Review of Systems Const All systems reviewed & are unremarkable except as noted in HPI and below Physical Exam Vital Signs: Last Vital Signs Pulse 79 06/20/23 11:16 BP 102/62 06/20/23 11:16 Pulse Ox 98 06/20/23 11:16 Oxygen Delivery Method Room Air 06/20/23 11:16 Const General: cooperative, healthy appearing and no acute distress Nutritional Appearance: obese Orientation/consciousness: patient oriented x3 HEENT Head: Yes normal to inspection Neck Other: mild antecollis and restricted range of motion Neuro Other: Moderate decreased blink and facial expression Voice- hypophonia No tremors Fine Finger movements - mildly decreased dariusz l>R Alternating hand movements - decreased dariusz Hand movements - decreased dariusz Foot taps- decreased dariusz No cog wheel rigidity gait - stooped, mild slowness and decreased arm swing L>R - General: patient oriented x3 and no focal motor deficits Cranial nerves: Yes CN's II-XII intact bilaterally, Yes Bilaterally intact EOM present, Yes Normal facial strength present and Yes Midline tongue present Cognition (Neuro): abnormal cognition (repeats questions frequently) Motor exam (neuro): 5/5 motor strength present throughout and Normal motor muscle tone present throughout Coordination: [id number] test normal Assessment & Plan Assessment & Plan (1) Parkinson disease: Code(s): G20 - Parkinson's disease (2) Frequent falls: Code(s): R29.6 - Repeated falls Plan Continue sinemet 25/100 qid - compliance stressed. 1.5 tab qAM, 1 tab in the afternoon, 1.5 tab q evening and 1 tab qHS. Advised patient to increase fluids to prevent light headedness and fall. Increase physical activity, and well balanced diet. Advised patient to use walker to prevent falls. Refer patient for physical therapy for gait training and bilateral legs strength. Orders: Orders PT Evaluation and Treatment 12 Weeks G20 - Parkinson's disease Medications: New melatonin 3 mg PO BEDTIME 30 tabs 3RF sleep Coding Level of Care Code Est Pt Level 4 (00052) Diagnoses Parkinson disease G20 Frequent falls R29.6
[2023-06-20 11:16] VITALS: BP 102/62; PULSE 79; O2SAT 98
== END 2023-06-20 11:51 | disposition home or self-care (01) ==
PROVIDERS: PCP Internal Medicine; Visit Provider Nurse Practitioner Family
DX: G20 Parkinson's disease (principal); R29.6 Repeated falls
CPT/HCPCS: 99214

== ENCOUNTER → 2023-06-20 11:00 | Outpatient (BNVA) | payer MEDICARE, SELFPAY | PROVIDERS: PCP Internal Medicine; Visit Provider Nurse Practitioner Family | DX: G20 Parkinson's disease (principal); R29.6 Repeated falls | CPT/HCPCS: 99212 ==

== ENCOUNTER 2023-06-22 15:34 | Outpatient (REF) | payer MEDICARE, SELFPAY ==
--- NOTE | ~2023-06-22 | XR_ITS ---
EXAMINATION: XR SHOULDER, LEFT CLINICAL INFORMATION: Shoulder pain status post fall COMPARISON: Left shoulder radiograph from 01/19/2023 TECHNIQUE: Three views of the left shoulder. FINDINGS: No acute visible fracture or dislocation. Decreased acromiohumeral interval suggesting rotator cuff pathology. Moderate degenerative arthropathy of the glenohumeral and acromioclavicular joint. Joint spaces and alignment are otherwise maintained. Soft tissues are unremarkable. Visualized portions of the chest demonstrate sternotomy wires, cardiomediastinal surgical clips, and valvular replacement. XR/XR shoulder LT min 2V IMPRESSION: 1. No acute visible fracture or dislocation. 2. Decreased acromiohumeral interval suggesting rotator cuff pathology. 3. Moderate degenerative arthropathy of the glenohumeral and acromioclavicular joint.
== END 2023-06-22 15:35 | disposition home or self-care (01) ==
LOC: HO.XRAY 15:34
PROVIDERS: PCP Internal Medicine; Visit Provider Internal Medicine
DX: M25.512 Pain in left shoulder (principal); Z91.81 History of falling
CPT/HCPCS: 73030

== ENCOUNTER 2023-06-26 10:29 | Outpatient (REF) | payer MEDICARE, SELFPAY ==
--- NOTE | ~2023-06-26 | XR_ITS ---
EXAMINATION: XR HIP, LEFT CLINICAL INFORMATION: Hip pain COMPARISON: None available. TECHNIQUE: Two views of the left hip. FINDINGS: There is a left total hip arthroplasty with acetabular component secured with a single screw. No acute fracture or dislocation is evident. Heterotopic bone formation is present about the proximal femur. Femoral and acetabular components appear unremarkable. There is significant degenerative disc disease in the lower lumbar spine. XR/XR hip LT min 2V IMPRESSION: Left total hip arthroplasty without evidence of hardware complication.
== END 2023-06-26 10:30 | disposition home or self-care (01) ==
LOC: HO.XRAY 10:29
PROVIDERS: PCP Internal Medicine; Visit Provider Internal Medicine
DX: M25.552 Pain in left hip (principal); Z91.81 History of falling
CPT/HCPCS: 73502

== ENCOUNTER 2023-08-31 09:50 | Outpatient (AMB) | payer MEDICARE, SELFPAY ==
[2023-08-31 09:51] VITALS: BMI 20.9
--- NOTE | 2023-08-31 09:51 | MHC.OFFVIS ---
Intake Vital Signs 08/31/23 09:51 Height 5 ft 10 in Weight 146 lb BMI 20.9 Intake Visit Reasons: OV-left shoulder injection-last injection 05/29/23 Intake Note: Marlon is a 78 year old male who presents today for repeat injection in his left shoudler, last injection 05/2023. Allergies No Known Allergies Allergy (Verified 08/31/23 09:51) HPI OV-left shoulder injection-last injection 05/29/23 HPI Details Patient presents to the office today for a left shoulder injection. FORMERLY [facility] Medical History Alcoholic liver disease Atherosclerotic cardiovascular disease Heel ulcer Orthostatic hypotension PAF (paroxysmal atrial fibrillation) Parkinson disease Ulcer of sacral region, stage 1 Surgical History History of coronary artery bypass graft x 3 (~10/2019) S/P hip replacement Status post aortic valve replacement with bioprosthetic valve Family History Father CVD (cardiovascular disease) Mother No problems noted. Social History (Updated 06/20/23 @ 11:16 by Mare Finney [facility]) Alcohol intake: former Patient Tobacco Use Status: Former Tobacco user Advance Directives Date on File: 07/07/20 Physical Exam Vital Signs: BMI result Body Mass Index 20.9 Const General: cooperative, healthy appearing and no acute distress Orientation/consciousness: patient oriented x3 Resp Effort & Inspection: normal respiratory effort and able to speak in complete sentences Cardio Rate: regular rate Peripheral pulses: Peripheral pulses 2+ throughout GI Palpation (GI): Soft to palpation Skin Lesions: no lesions Rashes: no rashes Neuro General: patient oriented x3 Extrem Other: Left shoulder: Normal to inspection. No ecchymosis, erythema, or edema. Forward flexion and abduction to 45 degrees. External rotation to neutral. Pain with cross-body reach. 3/5 strength with empty can. Negative drop arm. NVI. Psych Mental Status: mental status grossly normal Assessment & Plan Assessment & Plan (1) Osteoarthritis of left shoulder: Code(s): M19.012 - Primary osteoarthritis, left shoulder (2) Rotator cuff arthropathy of left shoulder: Code(s): M12.812 - Other specific arthropathies, not elsewhere classified, left shoulder (3) Arthritis of left acromioclavicular joint: Code(s): M19.012 - Primary osteoarthritis, left shoulder Plan Mr. Guy is a 77-year-old right hand dominant male, with a history of Parkinson?s disease, who presents in the office today for a follow up of left shoulder pain. The patient had a left shoulder intra-articular steroid injection on 10/19/2022 in the left shoulder. He would like a repeat injection while in the office today. The patient was offered a cortisone injection in the left shoulder with 80 mg of DepoMedrol. The patient was explained the risk, benefits, and alternatives to receiving this injection. After receiving consent for the injection, the patient had the procedure done while in office today. The patient tolerated the procedure well with no complications. Follow up will be PRN, or sooner if needed. Coding Level of Care Code Est Pt Level 3 (42896) Diagnoses Osteoarthritis of left shoulder M19.012 Rotator cuff arthropathy of left shoulder M12.812 Arthritis of left acromioclavicular joint M19.012
== END 2023-08-31 10:22 | disposition home or self-care (01) ==
PROVIDERS: PCP Internal Medicine; Visit Provider Physician Assistant
DX: M19.012 Primary osteoarthritis, left shoulder (principal)
CPT/HCPCS: 20610

== ENCOUNTER → 2023-08-31 09:50 | Outpatient (BNVA) | payer MEDICARE, SELFPAY | PROVIDERS: PCP Internal Medicine; Visit Provider Physician Assistant | DX: M19.012 Primary osteoarthritis, left shoulder (principal); M12.812 Other specific arthropathies, not elsewhere classified, left shoulder | CPT/HCPCS: 20610; J1040 ==

== ENCOUNTER 2023-10-04 08:30 | Emergency (ER) | payer MEDICARE, SELFPAY ==
[2023-10-04 08:34] VITALS: BP 124/52; PULSE 79; O2SAT 95
[2023-10-04 08:37] VITALS: BP 125/57; PULSE 82; RESP 18; TEMP 36.6; O2SAT 98; BMI 18.1
--- NOTE | 2023-10-04 08:41 | ED_ITS ---
HPI - General Adult General Chief complaint: General Medical Stated complaint: WEAKNESS,DIZZY,LIGHTHEADED PER EMS Time Seen by Provider: 10/04/23 08:31 Source: patient, family (patient's provided additional history and confirmed the history provided by the patient. ) and EMS Mode of arrival: EMS Limitations: no limitations History of Present Illness HPI narrative: Patient is a 78 year old assigned male at with a history of orthostatic hypotension, Parkinson disease, and atrial fib, presenting to the emergency department today with intermittent lightheadedness. Patient states that over the last 2 days he has had been having episodes of lightheadedness when going from sitting to standing. Patient denies any abdominal pain, nausea, vomiting, fever, chills, blurry vision, double vision, loss of vision, chest pain, difficulty breathing, shortness of breath, back pain, night sweats, pain with urination, increased urinary frequency, increased urinary urgency, blood in his urine or stool, syncope or a near syncopal episode, recent trauma or falls, bowel incontinence, bladder incontinence, bowel retention, bladder retention, or any other complaints at this time. Onset (ago): day(s) (2) Severity: mild Pain Consistency: intermittent Relieving factors: none Exacerbating factors: none Associated symptoms: denies other symptoms Treatments prior to arrival: none Related Data Home Medications Medication Instructions Recorded Confirmed acetaminophen 500 mg tablet 1,000 mg PO Q6H PRN 09/15/20 05/07/23 (Tylenol Extra Strength) aspirin 81 mg tablet,delayed 81 mg PO DAILY 09/15/20 05/07/23 release multivitamin 1 tab PO DAILY 09/15/20 05/07/23 allopurinol 100 mg tablet 200 mg PO BID 07/18/21 05/07/23 potassium chloride 10 mEq meq PO BID 12/11/22 05/07/23 capsule,extended release glycopyrrolate 1 mg tablet 1 mg PO DAILY PRN 05/07/23 05/07/23 midodrine 2.5 mg tablet 2.5 mg PO TID 05/07/23 05/07/23 Previous Rx's Medication Instructions Recorded melatonin 3 mg tablet 3 mg PO BEDTIME sleep #30 tabs 06/20/23 carbidopa 25 mg-levodopa 100 mg See Rx Instructions PO QID #150 09/17/23 tablet tabs rosuvastatin 20 mg tablet 20 mg PO DAILY 90 days #90 tabs 09/17/23 cefuroxime axetil 250 mg tablet 250 mg PO BID 7 days #14 tabs 10/04/23 doxycycline hyclate 100 mg tablet 100 mg PO BID 7 days #14 tabs 10/04/23 Allergies Allergy/AdvReac Type Severity Reaction Status Date / Time No Known Allergies Allergy Verified 10/04/23 08:35 Review of Systems 2 Constitutional: Constitutional: Reports no additional constitutional complaints, Denies chills, Denies fever(s), Denies night sweats and Reports weakness Eyes: Eyes: Reports no additional eye complaints, Denies blurry vision, Denies change in vision, Denies diplopia, Denies eye discharge, Denies loss of vision and Denies eye pain ENT: Denies dizziness Cardiovascular: Cardiovascular: Reports no additional cardiovascular complaints, Denies chest pain, Reports lightheadedness (intermittent), Denies Loss of Consciousness and Denies dyspnea Respiratory: Respiratory: Reports no additional respiratory complaints and Denies dyspnea Gastrointestinal: Gastrointestinal: Reports no additional gastrointestinal complaints, Denies abdominal pain, Denies melena, Denies hematochezia, Denies change in bowel habits and Denies change in stool character Genitourinary: Genitourinary: Reports no additional male genitourinary complaints, Denies hematuria, Denies oliguria, Denies difficulty urinating, Denies dysuria, Denies urinary frequency, Denies urinary hesitancy, Denies urinary incontinence and Denies urinary urgency Musculoskeletal: Musculoskeletal: Reports no additional musculoskeletal complaints, Denies numbness and Denies tingling Neurologic: Denies dizziness, Denies loss of vision, Denies numbness, Denies tingling and Reports weakness Psychiatric: Psychiatric: Reports no additional psychiatric complaints Endocrine: Endocrine: Reports no additional endocrine complaints Hematologic/Lymphatic: Hematologic/Lymphatic: Reports no additional hematologic/lymphatic complaints Allergic/Immunologic: Allergic/Immunologic: Reports no additional allergic/immunologic complaints PMFSH Past Medical History Attestation statement: The following information was validated with the patient. (all information validated with the patient's ) Source: old records reviewed, obtained from family (patient's provided additional history and confirmed the history provided by the patient.) and nursing notes reviewed Onset Date is defined in the Problem List Problems that require an onset date and time if occurred within 24 hrs of arrival to the ED Aortic Dissection and Rupture; Neurologic impairment; Cardiopulmonary Arrest; Endotracheal Intubation; Insertion or Replacement of Mechanical Circulatory Assist Device Medical History Frequent falls Dyspnea on exertion Abnormal CT scan, chest Shortness of breath on exertion Heel ulcer Ulcer of sacral region, stage 1 Parkinson disease Alcoholic liver disease Orthostatic hypotension PAF (paroxysmal atrial fibrillation) Atherosclerotic cardiovascular disease Surgical History S/P hip replacement Status post aortic valve replacement with bioprosthetic valve History of coronary artery bypass graft x 3 (~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 Social History Social History Unable to assess alcohol history related to: Unknown Alcohol intake: former Patient Tobacco Use Status: Former Tobacco user Smoked in Last 30 Days: No Use of substances other than those prescribed or required for medical reasons: No Advance Directives: Yes Advance Directives on File: Yes Advance Directives Date on File: 03/20/23 Physical Exam ED Vital Signs: Vital Signs - 24 hr 10/04/23 08:37 10/04/23 10:28 10/04/23 12:59 Temperature 98 F Pulse Rate 82 62 77 Respiratory Rate 18 20 18 Blood Pressure 125/57 L 147/55 H 144/78 H Pulse Oximetry 98 100 96 Oxygen Delivery Method Room Air Room Air BMI result Body Mass Index 18.1 Const General: cooperative, no acute distress, alert and awake Nutritional Appearance: well nourished Orientation/consciousness: patient oriented x3 Limitations: no limitations HENAR Head: Yes normal to inspection and Yes atraumatic Ears: hearing grossly normal bilaterally and external ears normal General nose exam: Normal external nose present, no nasal discharge noted and no epistaxis Face and sinus: Yes normal facial exam, No abrasion and No laceration Mouth: Normal oral and palatal mucosa present, no drooling and no muffled voice Eyes General: appearance normal, both eyes and all related structures Periorbital: periorbital findings normal Eyelids: Yes eyelids normal Conjunctivae: conjunctivae normal Pupils: Equal, round and reactive pupils present EOM: EOMs intact bilaterally Neck Neck: Yes normal visual inspection, Yes full ROM and Yes no lymphadenopathy Chest Chest palpation & inspection: normal inspection of the chest Resp Effort & Inspection: normal respiratory effort and able to speak in complete sentences GI Inspection: Yes normal to inspection Neuro General: patient oriented x3 and moves all extremities Cranial nerves: Yes Equal, round and reactive pupils present Cognition (Neuro): normal cognition Motor exam (neuro): 5/5 motor strength present throughout Sensory Exam: Normal double simultaneous stimulation for sensation Coordination: [id number] test normal Extrem General: Yes normal to inspection, Yes full ROM and Yes capillary refill normal Psych Appearance: grossly normal Mental Status: mental status grossly normal Affect: normal affect Attitude: cooperative Thought process: Normal thought process present Thought content: Normal thought content present Insight: Good insight present (Psych) Medications Administered Discontinued Medications Generic Name Dose Route Start Last Admin Trade Name Freq PRN Reason Stop Dose Admin Cefuroxime Axetil 250 mg 10/04/23 11:44 10/04/23 12:06 Cefuroxime Axetil 250 Mg Tablet PO 10/04/23 11:45 250 mg ONCE ONE Administration Doxycycline Monohydrate 100 mg 10/04/23 11:44 10/04/23 12:06 Doxycycline Monohydrate 100 Mg Capsule PO 10/04/23 11:45 100 mg ONCE ONE Administration Sodium Chloride 1,000 mls @ 999 mls/hr 10/04/23 09:30 10/04/23 11:48 Ns IV 10/04/23 10:30 Infused .Q1H1M LAI Infusion Medical Decision Making Medical Decision Making MDM Narrative: Patient is a 78 year old assigned male at with a history of orthostatic hypotension, Parkinson disease, and atrial fib, presenting to the emergency department today with. Patient's physical exam was unremarkable. Patient's blood work was unremarkable. Patient's urine showed evidence of infection. Patient's EKG was unremarkable. Patient's chest x-ray showed a left upper lobe pneumonia. Patient's influenza and RSV tests were negative. Patient's COVID-19 test is positive. I explained my physical exam findings as well as all test results to the patient and the patient's . I answered all questions asked by the patient and the patient's . Patient received IV fluids and PO antibiotics which he stated helped his symptoms significantly. Patient's clinical presentation is not consistent with sepsis (@1230). I stressed the importance of the patient taking his medication as prescribed. I stressed the importance of the patient following up with his primary care provider. I stressed the importance of the patient returning to the emergency department immediately if his symptoms were to worsen or if he were to develop any dizziness, shortness of breath, difficulty breathing, chest pain, blurry vision, loss of vision, nausea, vomiting, abdominal pain, fever, chills, back pain, or any other complaints. Patient and the patient's verbalized agreement and understanding with this treatment plan and discharge. Differential Diagnosis Differential Diagnoses: The differential diagnosis associated with the presentation includes UTI Orthostatic hypotension COVID-19 Influenza RSV Weakness Admission/Observation Consideration of admission/observation: Escalation of care including admission/observation considered Patient would have been admitted to the hospital had his work up had any findings where hospital admission was appropriate and his clinical presentation warranted hospital admission. Lab Data [facility] Lab Attestation statement: I reviewed the patient's lab results. My interpretation of these results are in the [facility] Rationale portion of this note. 10/04/23 09:43 10/04/23 09:43 Labs: Lab Results 10/04/23 10/04/23 Range/Units 09:43 11:16 WBC 4.7 L (4.8-10.8) X10*3/uL RBC 3.23 L (4.60-5.80) X10*6/uL Hgb 10.8 L (14.0-18.0) g/dl Hct 33.4 L (42.0-52.0) % MCV 103.4 H (80.0-98.0) fL MCH 33.4 H (27.0-33.0) pg MCHC 32.3 (31.0-36.0) g/dl RDW 13.2 (11.0-16.0) % Plt Count 99 L (160-400) X10*3/uL MPV 10.2 (9.4-12.4) fL Immature Gran % (Auto) 0.4 (0.0-0.4) % Neut % (Auto) 77.0 H (45-73) % Lymph % (Auto) 10.4 L (20-40) % Brooks % (Auto) 10.7 (2-11) % Eos % (Auto) 1.1 (0-4) % Baso % (Auto) 0.4 (0-2) % Lymph # (Auto) 0.5 L (1.2-4.9) X10*3/uL Brooks # (Auto) 0.5 (0.1-1.2) X10*3/uL Eos # (Auto) 0.1 (0.0-0.4) X10*3/uL Baso # (Auto) 0.0 (0.0-0.2) X10*3/uL Abs Immat Gran (auto) 0.02 (0.00-0.03) X10*3/uL Absolute Neuts (auto) 3.6 (2.0-8.3) x10*3/uL Absolute Nucleated RBC 0.000 (0.0-0.012) X10*3/uL Nucleated RBC % (auto) 0.0 (0.0-0.2) /100WBC PT 12.9 (11.1-13.3) SEC INR 1.1 (0.9-1.1) APTT 31.5 (26.0-36.4) SEC Sodium 140 (135-145) mmol/L Potassium 4.2 (3.3-5.1) mmol/L Chloride 109 H (96-108) mmol/L Carbon Dioxide 25 (22-29) mmol/L Anion Gap 10 L (12-20) BUN 18 H (9-16) mg/dL Creatinine 0.95 (0.5-1.4) mg/dL Estim Creat Clear Calc 48.1 Estimated GFR > 60 Random Glucose 100 (60-115) mg/dL Calcium 8.7 (8.4-10.2) mg/dL Magnesium 1.8 (1.6-2.6) mg/dL Iron 46 (45-160) mcg/dL TIBC 202 L (228-428) mcg/dL % Saturation 23 (15-50) % Unsat Iron Binding 156 ug/dL Total Bilirubin 0.6 (0.0-1.0) mg/dL AST 32 (5-37) U/L ALT < 5 (0-40) U/L Alkaline Phosphatase 222 H (39-117) U/L Troponin I High Sens 10.9 D (<3.5-35.0) ng/L Total Protein 6.9 (6.5-8.0) g/dL Albumin 3.4 L (3.5-5.0) g/dL Urine Color Yellow Urine Appearance Cloudy Urine pH 5.5 (5.0-9.0) Ur Specific [place] 1.015 (1.005-1.025) Urine Protein Trace (Neg-Trace) mg/dL Urine Glucose (UA) Negative (Negative) mg/dL Urine Ketones Negative (Negative) mg/dL Urine Blood Moderate (2+) H (Negative) Urine Nitrite Negative (Negative) Ur Leukocyte Esterase Moderate (2+) H (Negative) Urine RBC 11-20 H (0-2) /HPF Urine WBC >50 H (0-5) /HPF Ur Squamous Epith Cells 0-2 (0-2) /HPF Urine Bacteria 4+ (None Seen) Hyaline Casts 0-2 (0-2) /LPF Influenza Type A (PCR) NEGATIVE (Negative) Influenza Type B (PCR) NEGATIVE (Negative) RSV RNA Qual (PCR) NEGATIVE (Negative) SARS-CoV-2 RNA (RT-PCR) POSITIVE A (Negative) Independent Interpretation I performed an independent interpretation of an: EKG, Plain X-Ray and CT Scan Interpretation: My interpretation is in agreement with the radiologist's impression of these imaging studies. - EXAMINATION: CT HEAD WITHOUT CONTRAST CT CERVICAL SPINE WITHOUT CONTRAST CLINICAL INFORMATION: Fall. Head strike. COMPARISON: CT head and cervical spine 03/20/2023. TECHNIQUE: CT of the head and cervical spine were performed without intravenous contrast. Multiplanar reformats were rendered and reviewed. This CT examination was performed using dose optimization techniques as appropriate, variously including the following: *Automated exposure control *Adjustment of mA and/or kV according to patient size (this includes techniques or standardized protocols for targeted exams where dose is matched to indication/reason for exam; i.e. extremities or head) *Use of iterative reconstruction technique DLP: 970 mGy-cm. FINDINGS: CT head: There is no intracranial hemorrhage, extra-axial collection, mass effect, or large territorial infarction. A small focus of ossification is seen at the insertion of the right tentorial reflection along the posterior temporal convexity. Patchy hypoattenuation is noted within the white matter, typical of chronic microangiopathy. The ventricles are normal in size without hydrocephalus. The calvarium is intact without fracture. The extracranial structures are within normal limits. CT cervical spine: The cervical vertebral bodies and posterior normal heights and alignment. No fractures seen. The facet joints are normally aligned. Mild degenerative changes are noted without significant narrowing of the spinal canal. There is multilevel neural foraminal stenosis related to uncovertebral hypertrophy. The cervical soft tissues are within normal limits. There is interstitial thickening within the bilateral lung apices. CT/CT head/brain wo IV con IMPRESSION: CT HEAD: No acute intracranial abnormality. CT CERVICAL SPINE: No cervical spine fracture or traumatic malalignment. Dictated By: OSKAR LEE MD Signed By: Electronically signed by OSKAR LEE MD 10/04/23 1118 - EXAMINATION: XR CHEST CLINICAL INFORMATION: Weakness. COMPARISON: 03/20/2023 TECHNIQUE: Frontal view of the chest was obtained. The right hemithorax is well expanded. Stable volume loss in the left hemithorax with prominent interstitial markings. Patchy airspace disease in left upper lobe. Cardiac silhouette is unchanged. Prior cardiac surgery with aortic valve replacement. Median sternal wires. XR/XR chest 1V IMPRESSION: Left upper lobe pneumonia. Follow-up until resolution is advised. Dictated By: Trae Lundberg MD Signed By: Electronically signed by Trae Lundberg MD 10/04/23 1113 - Vent. Rate: 075 BPM Atrial Rate: 075 BPM P-R Int: 276 ms QRS Dur: 088 ms QT Int: 354 ms P-R-T Axes: 042 -47 122 degrees QTc Int: 395 ms Sinus rhythm with 1st degree A-V block with occasional Premature ventricular complexes Left anterior fascicular block Left ventricular hypertrophy with repolarization abnormality ( R in aVL , [place] product ) Abnormal ECG When compared with ECG of 20-MAR-2023 08:03, QT has shortened Electronically Signed By:Tony Packer Dictated By: Tony Packer MD Signed By: Electronically signed by Tony Packer MD 10/04/23 1400 Radiology Impression Discussion of test interpretation with radiology: I have reviewed the radiologist's reading. Independent Historian Clinical information obtained from an independent historian. History obtained from or confirmed by: Spouse (Patient's provided additional history and confirmed the history provided by the patient.) and EMS (EMS provided additional history and confirmed the history provided by the patient.) Prescription Management I considered prescription management with: Antibiotic (Patient prescribed an antibiotic for UTI and PNA) Critical Care Time Critical Care Time Critical Care Time: Yes Total Critical Care Time: 35 Attestation: I spent 35 minutes of Critical Care Time with this patient. This does not include time spent on separately reported billable procedures. Discharge Plan Discharge Clinical Impression: Urinary tract infection, Pneumonia, COVID-19 Patient Disposition: Home, Self-Care Instructions: Urinary Tract Infection in Men (DC), Community Acquired Pneumonia (DC), COVID-19 (Coronavirus Disease 2019) (ED) Additional Instructions: Follow up with your primary care provider. Return to the emergency department immediately if your symptoms worsen or if you develop any dizziness, shortness of breath, difficulty breathing, chest pain, blurry vision, loss of vision, nausea, vomiting, abdominal pain, fever, chills, back pain, or any other complaints. Prescriptions: New cefuroxime axetil 250 mg tablet 250 mg PO BID 7 Days Qty: 14 0RF doxycycline hyclate 100 mg tablet 100 mg PO BID 7 Days Qty: 14 0RF No Action rosuvastatin 20 mg tablet 20 mg PO DAILY 90 Days Qty: 90 3RF carbidopa-levodopa 25-100 mg tablet See Rx Instructions PO QID Qty: 150 6RF Rx Instructions: 1.5 tab in am, 1 tab in afternnon, 1.5 tab in evening, and 1 tab qhs orally 4 times a day; aspirin 81 mg tablet,delayed release (DR/EC) 81 mg PO DAILY multivitamin Tablet 1 tab PO DAILY acetaminophen [Tylenol Extra Strength] 500 mg tablet 1,000 mg PO Q6H PRN allopurinol 100 mg tablet 200 mg PO BID potassium chloride 10 mEq capsule, extended release PO BID melatonin 3 mg tablet 3 mg PO BEDTIME Qty: 30 3RF midodrine 2.5 mg tablet 2.5 mg PO TID glycopyrrolate 1 mg tablet 1 mg PO DAILY PRN Referrals: Germaine LICONA [Outside] Nikolay Bruno MD [Primary Care Provider] - Interventions: ED Discharge Assessment Last Done: 10/04/23 12:59 Discharge Date/Time: 10/04/23 13:01 Print Language: Swedish
[2023-10-04 10:10] LABS: Alanine Aminotransferase < 5 U/L (0-40); Albumin Level 3.4 g/dL (3.5-5.0); Alkaline Phosphatase 222 U/L (39-117); Anion Gap 10 (12-20); Aspartate Amino Transferase 32 U/L (5-37); Bilirubin Total 0.6 mg/dL (0.0-1.0); Blood Urea Nitrogen 18 mg/dL (9-16); Calcium 8.7 mg/dL (8.4-10.2); Carbon Dioxide 25 mmol/L (22-29); Chloride 109 mmol/L (96-108); Creatinine Clr Calc Pharmacy 48.1; Estimated Glomerular Filt Rate > 60; Glucose Random 100 mg/dL (60-115); Magnesium 1.8 mg/dL (1.6-2.6); Potassium 4.2 mmol/L (3.3-5.1); Sodium 140 mmol/L (135-145); Total Protein 6.9 g/dL (6.5-8.0)
[2023-10-04 10:28] VITALS: BP 147/55; PULSE 62; RESP 20; O2SAT 100
--- NOTE | 2023-10-04 12:13 | MHC.CM.ED ---
Received case management consult from Kamille ANGULO. Patient came to the ER due to weakness. Found to be positive for Covid, have pneumonia and an UTI. Hospital admission is not anticipated at this time. Met with patient and , Julia, in regards to discharge planning. Patient lives with Julia and has a home health aide from [facility] provided by the [facility]. Patient's RECEIVING MANAGER told patient and Julia she would not be able to come because he has Covid. T/W spoke with [facility] via telephone at [phone]. Their company policy is to hold services for 5 days due to their staff seeing multiple patients a day. Patient's services will resume with them on 10/09. This information was relayed to patient and Julia. Information on [facility] provided to Julia. Referral also made to [facility] to see if services would be available to patient. Referral made to [facility] for longterm. T/W is still inquiring about any [facility] services that would be available for patient. Patient, Julia, Marcy CONKLIN and [facility] ANGULO aware. Continue to monitor for d/c needs.
[2023-10-04 12:59] VITALS: BP 144/78; PULSE 77; RESP 18; O2SAT 96
== END 2023-10-04 13:01 | disposition home or self-care (01) ==
PROVIDERS: Physician Assistant Medical; Emergency Provider Student in an Organized Health Care Education/Training Program; PCP Internal Medicine
DX: U07.1 COVID-19 (principal); J12.82 Pneumonia due to coronavirus disease 2019; N39.0 Urinary tract infection, site not specified; G20.A1 Parkinson's disease without dyskinesia, without mention of fluctuations; I48.0 Paroxysmal atrial fibrillation; Z87.891 Personal history of nicotine dependence; Z79.899 Other long term (current) drug therapy; Z79.82 Long term (current) use of aspirin; Z79.02 Long term (current) use of antithrombotics/antiplatelets
CPT/HCPCS: 0241U; 36415; 70450; 71045; 72125; 80053; 81001; 83540; 83735; 84484; 85025; 85610; 85730; 87086; 87088; 87186; 93005; 96360; 96361; 99284

== ENCOUNTER → 2023-10-04 08:42 | Outpatient (BNV) | payer MEDICARE, SELFPAY | PROVIDERS: Emergency Provider Student in an Organized Health Care Education/Training Program; PCP Internal Medicine; Visit Provider Internal Medicine Cardiovascular Disease | DX: I44.0 Atrioventricular block, first degree (principal); I44.4 Left anterior fascicular block | CPT/HCPCS: 93010 ==

== ENCOUNTER 2023-10-26 12:52 | Outpatient (AMB) | payer MEDICARE, SELFPAY ==
--- NOTE | 2023-10-26 12:57 | MHC.OFFVIS ---
Intake Vital Signs 10/26/23 13:04 Height 5 ft 8 in Weight 131 lb 6 oz BMI 20.0 BP 100/60 Blood Pressure Location Rt brachial Position Sitting Pulse 79 Pulse Source Pulse Oximeter Pulse Oximetry (%) 97 Oxygen Delivery Method Room Air Intake Visit Reasons: 3 mnts f/u appt - Confirmed Intake Note: Patient presents gets very light headed Allergies No Known Allergies Allergy (Verified 10/26/23 13:03) HPI HPI Comments History of Present Illness Details 78 y/o right handed male patient presents for follow up of Parkinson's disease. Pt's reports that patient is having home OT and PT once a week. He also has daily personal care help but not Sunday. Pt reprots he feels slow and having short steps. Pt reports frequent light headedness and dizziness, when he changes his position and even he just sitting in the chair. He uses waker at home and public. He started using commode at night due to weakness and dizziness. Visiting nurse come once a week to check his vital signs. He tries to drinks more water. He is on Sinemet QID. 1.5 tab qAM, 1 tab in the afternoon, 1.5 tab q evening and 1 tab qHS. Pt's reports that pt sleeps a lot during daytime, and not physically active. He has sore on his buttocks. He denies constipation. He denies hallucination. 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 Social History Unable to assess alcohol history related to: Unknown Alcohol intake: former Patient Tobacco Use Status: Former Tobacco user Advance Directives Date on File: 03/20/23 Review of Systems Const All systems reviewed & are unremarkable except as noted in HPI and below Physical Exam Vital Signs: Last Vital Signs Pulse 79 10/26/23 13:04 BP 100/60 10/26/23 13:04 Pulse Ox 97 10/26/23 13:04 Oxygen Delivery Method Room Air 10/26/23 13:04 BMI result Body Mass Index 20.0 Const General: cooperative, healthy appearing and no acute distress Nutritional Appearance: obese Orientation/consciousness: patient oriented x3 HEENT Head: Yes normal to inspection Neck Other: mild antecollis and restricted range of motion Neuro Other: Moderate decreased blink and facial expression Voice- hypophonia No tremors Fine Finger movements - mildly decreased dariusz l>R Alternating hand movements - decreased dariusz Hand movements - decreased dariusz Foot taps- decreased dariusz No cog wheel rigidity gait -uses walker, slow. General: patient oriented x3 and no focal motor deficits Cranial nerves: Yes CN's II-XII intact bilaterally, Yes Bilaterally intact EOM present, Yes Normal facial strength present and Yes Midline tongue present Cognition (Neuro): abnormal cognition (repeats questions frequently) Motor exam (neuro): 5/5 motor strength present throughout and Normal motor muscle tone present throughout Coordination: [id number] test normal Assessment & Plan Assessment & Plan (1) Parkinson disease: Code(s): G20 - Parkinson's disease (2) Frequent falls: Code(s): R29.6 - Repeated falls Plan Continue sinemet 25/100 qid - compliance stressed. 1.5 tab qAM, 1 tab in the afternoon, 1.5 tab q evening and 1 tab qHS. Advised patient to increase fluids to prevent light headedness and fall. Increase physical activity, and well balanced diet. Advised patient to use walker to prevent falls. Continue to do home physical therapy for gait training and bilateral legs strength. Coding Level of Care Code Est Pt Level 4 (44186) Diagnoses Parkinson disease G20 Frequent falls R29.6
[2023-10-26 13:04] VITALS: BP 100/60; PULSE 79; O2SAT 97
== END 2023-10-26 13:47 | disposition home or self-care (01) ==
PROVIDERS: PCP Internal Medicine; Visit Provider Nurse Practitioner Family
DX: G20.A1 Parkinson's disease without dyskinesia, without mention of fluctuations (principal); R29.6 Repeated falls
CPT/HCPCS: 99214

== ENCOUNTER → 2023-10-26 12:52 | Outpatient (BNVA) | payer MEDICARE, SELFPAY | PROVIDERS: PCP Internal Medicine; Visit Provider Nurse Practitioner Family | DX: G20.A1 Parkinson's disease without dyskinesia, without mention of fluctuations (principal); R29.6 Repeated falls; Z79.899 Other long term (current) drug therapy | CPT/HCPCS: 99212 ==

== ENCOUNTER 2024-01-01 | Outpatient (REF) | payer MEDICARE, SELFPAY ==
[2024-01-02 10:34] LABS: Appearance Urine Cloudy; Color Urine Yellow; Glucose Urine UA Negative (Negative); Leukocyte Esterase Urine Negative (Negative); Nitrite Urine Negative (Negative); PH 5.5 (5.0-9.0); Specific Gravity - Urine 1.015 (1.005-1.025); Urine Blood Negative (Negative); Urine Ketones Negative (Negative); Urine Protein Negative (Neg-Trace)
== END 2024-01-01 00:01 | disposition home or self-care (01) ==
LOC: HO.LNP
PROVIDERS: Visit Provider Internal Medicine
DX: R39.15 Urgency of urination (principal); R35.0 Frequency of micturition
CPT/HCPCS: 81003; 87086

== ENCOUNTER 2024-01-28 17:36 | Emergency (ER) | payer OTHER, SELFPAY ==
--- NOTE | ~2024-01-28 | XR_ITS ---
EXAMINATION: XR HAND, LEFT CLINICAL INFORMATION: Injury, pain, unspecified site. COMPARISON: None available. TECHNIQUE: PA, lateral, and oblique views of the left hand. FINDINGS: No fracture or subluxation. 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 Moderate to severe radiocarpal degenerative arthroses with significant joint space narrowing. No abnormal soft tissue calcifications nor unexpected radiopaque foreign bodies. XR/XR hand LT min 3V IMPRESSION: 1. No acute fractures or malalignment. 2. 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
--- NOTE | ~2024-01-28 | CT_ITS ---
EXAMINATION: CT HEAD WITHOUT CONTRAST CLINICAL INFORMATION: Head strike. Fall. Pain. COMPARISON: CT head dated 10/04/2023. TECHNIQUE: Contiguous axial imaging was performed from the skull base to vertex without intravenous administration of contrast. This CT examination was performed using dose optimization techniques as appropriate, variously including the following: *Automated exposure control *Adjustment of mA and/or kV according to patient size (this includes techniques or standardized protocols for targeted exams where dose is matched to indication/reason for exam; i.e. extremities or head) *Use of iterative reconstruction technique DLP: 1007 mGy-cm FINDINGS: There is no acute intracranial hemorrhage. There is no evidence of acute/subacute cerebral or cerebellar infarction. There is mild microvascular ischemic change. There is no midline shift or mass effect. There is no extra-axial fluid collection. Ventricular size is normal. The ocular lenses are surgically absent. The orbits are otherwise unremarkable. There is left frontal scalp swelling. The calvarium is intact. The visualized paranasal sinuses are well aerated. The mastoid air cells are clear. CT/CT head/brain wo IV con IMPRESSION: No acute intracranial pathology. Mild microvascular ischemic change. Left frontal scalp swelling.
--- NOTE | ~2024-01-28 | XR_ITS ---
EXAMINATION: XR KNEE, LEFT CLINICAL INFORMATION: Pain. Injury. COMPARISON: None available. TECHNIQUE: Four views of the left knee. FINDINGS: No fracture or joint effusion. Alignment is anatomic. There is mild tricompartmental degenerative disease. There are vascular calcifications. No abnormal soft tissue calcification. XR/XR knee LT 3V IMPRESSION: No fracture or dislocation. Mild tricompartmental degenerative disease.
--- NOTE | ~2024-01-28 | CT_ITS ---
EXAMINATION: CT CERVICAL SPINE WITHOUT CONTRAST CLINICAL INFORMATION: Fall. Head strike. Pain. COMPARISON: CT cervical spine dated 10/04/2023. TECHNIQUE: Noncontrast CT of the cervical spine was performed. This CT examination was performed using dose optimization techniques as appropriate, variously including the following: *Automated exposure control *Adjustment of mA and/or kV according to patient size (this includes techniques or standardized protocols for targeted exams where dose is matched to indication/reason for exam; i.e. extremities or head) *Use of iterative reconstruction technique DLP: 1007 mGy-cm FINDINGS: There is straightening of the cervical lordosis. The vertebral bodies otherwise demonstrate anatomic alignment in the sagittal projection. The facet joints are anatomically aligned. Vertebral body heights are maintained. There is degenerative disc disease most pronounced at C5-C6 and C6-C7. There is no acute cervical spine fracture. The C1-C2 relationship is anatomic. The dens is intact. There is multilevel neural foraminal stenosis related to uncovertebral joint hypertrophy and facet arthropathy. Prevertebral soft tissue is normal in appearance. The paraspinal soft tissue is normal in appearance. There are fibrotic changes at the lung apices. There are dense calcifications throughout the visualized aorta. The thyroid gland is normal in appearance. CT/CT cervical spine wo IV con IMPRESSION: No acute osseous cervical spine abnormality. Fleischner guidelines were followed.
[2024-01-28 17:41] VITALS: BP 134/90; BP 177/77; PULSE 78; PULSE 91; RESP 16; TEMP 36.2; O2SAT 100; O2SAT 98; BMI 21.8
--- NOTE | 2024-01-28 18:01 | ECG_ITS ---
Test Reason : FALL Blood Pressure : / mmHG Vent. Rate : 095 BPM Atrial Rate : 095 BPM P-R Int : 228 ms QRS Dur : 094 ms QT Int : 380 ms P-R-T Axes : 000 -51 118 degrees QTc Int : 477 ms Sinus rhythm with 1st degree A-V block with occasional Premature ventricular complexes Left anterior fascicular block Left ventricular hypertrophy with repolarization abnormality ( R in aVL , [place] product ) Abnormal ECG When compared with ECG of 04-OCT-2023 09:02, QT has lengthened Referred By: Kamille Krishnamurthy Electronically Signed By:STORM ISIDRO
--- NOTE | 2024-01-28 18:03 | ED_ITS ---
HPI - General Adult General Chief complaint: Wound/Laceration Stated complaint: FALL HEAD LAC + THINNERS Time Seen by Provider: 01/28/24 17:57 Source: patient, family (patient's ) and EMS Mode of arrival: EMS Limitations: no limitations History of Present Illness HPI narrative: Patient is a 78 year old assigned male at with a history of first degree heart block, PAF, and Parkinson disease presenting to the emergency department today after a fall. Patient states that he got up too quickly, got dizzy, and fell. Patient states that he hit his head, left hand, left arm, and left knee. Patient denies any dizziness, lightheadedness, abdominal pain, nausea, vomiting, fever, chills, blurry vision, double vision, loss of vision, chest pain, difficulty breathing, shortness of breath, back pain, night sweats, pain with urination, increased urinary frequency, increased urinary urgency, blood in his urine or stool, syncope or a near syncopal episode, bowel incontinence, bladder incontinence, bowel retention, bladder retention, or any other complaints at this time. Onset (ago): minute(s) Location: head, left, upper extremity and lower extremity Severity: mild Severity scale (1-10): 3 Relieving factors: none Exacerbating factors: none Associated symptoms: denies other symptoms Treatments prior to arrival: none Related Data Home Medications ?Medication ?Instructions ?Recorded ?Confirmed acetaminophen 500 mg tablet 1,000 mg PO Q6H PRN Pain 09/15/20 01/28/24 (Tylenol Extra Strength) aspirin 81 mg tablet,delayed 81 mg PO DAILY 09/15/20 01/28/24 release allopurinol 100 mg tablet 200 mg PO BID 07/18/21 01/28/24 glycopyrrolate 1 mg tablet 1 mg PO DAILY PRN excessive 05/07/23 01/28/24 drooling. midodrine 2.5 mg tablet 2.5 mg PO TID 05/07/23 01/28/24 magnesium oxide 400 mg PO DAILY 01/28/24 01/28/24 Previous Rx's ?Medication ?Instructions ?Recorded rosuvastatin 20 mg tablet 20 mg PO DAILY 90 days #90 tabs 09/17/23 carbidopa 25 mg-levodopa 100 mg See Rx Instructions PO QID #150 12/20/23 tablet tabs Allergies Allergy/AdvReac Type Severity Reaction Status Date / Time No Known Allergies Allergy Verified 01/28/24 17:45 Review of Systems 2 Constitutional: Constitutional: Reports no additional constitutional complaints, Denies chills, Denies fever(s) and Denies night sweats Eyes: Eyes: Reports no additional eye complaints, Denies blurry vision, Denies change in vision, Denies diplopia, Denies eye discharge, Denies loss of vision and Denies eye pain ENT: Denies dizziness Comments: head laceration Cardiovascular: Cardiovascular: Reports no additional cardiovascular complaints, Denies chest pain, Denies lightheadedness, Denies Loss of Consciousness and Denies dyspnea Respiratory: Respiratory: Reports no additional respiratory complaints and Denies dyspnea Gastrointestinal: Gastrointestinal: Reports no additional gastrointestinal complaints, Denies abdominal pain, Denies melena, Denies hematochezia, Denies change in bowel habits and Denies change in stool character Genitourinary: Genitourinary: Reports no additional male genitourinary complaints, Denies hematuria, Denies oliguria, Denies difficulty urinating, Denies dysuria, Denies urinary frequency, Denies urinary hesitancy, Denies urinary incontinence and Denies urinary urgency Musculoskeletal: Musculoskeletal: Reports no additional musculoskeletal complaints, Denies numbness and Denies tingling Comments: left arm, hand, and knee pain Neurologic: Denies dizziness, Denies loss of vision, Denies numbness and Denies tingling Psychiatric: Psychiatric: Reports no additional psychiatric complaints Endocrine: Endocrine: Reports no additional endocrine complaints Hematologic/Lymphatic: Hematologic/Lymphatic: Reports no additional hematologic/lymphatic complaints Allergic/Immunologic: Allergic/Immunologic: Reports no additional allergic/immunologic complaints [facility] Past Medical History Attestation statement: The following information was validated with the patient. (all information validated with the patient's ) Source: old records reviewed, obtained from family (patient's provided additional history and confirmed the history provided by the patient) and nursing notes reviewed Medical History Frequent falls Dyspnea on exertion Abnormal CT scan, chest Shortness of breath on exertion Heel ulcer Ulcer of sacral region, stage 1 Parkinson disease Alcoholic liver disease Orthostatic hypotension PAF (paroxysmal atrial fibrillation) Atherosclerotic cardiovascular disease Surgical History S/P hip replacement Status post aortic valve replacement with bioprosthetic valve History of coronary artery bypass graft x 3 (~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 Social History Social History Unable to assess alcohol history related to: Unknown Alcohol intake: former Patient Tobacco Use Status: Former Tobacco user Smoked in Last 30 Days: No Use of substances other than those prescribed or required for medical reasons: No Advance Directives: Yes Advance Directives on File: Yes Advance Directives Date on File: 03/20/23 Do you have a plan to hurt others: No Plan Physical Exam ED Vital Signs: Vital Signs - 24 hr 01/28/24 17:41 01/28/24 20:08 01/28/24 22:02 Temperature 97.2 F 97.9 F 97.8 F Pulse Rate 91 98 96 Respiratory Rate 16 18 18 Blood Pressure 177/77 H 140/80 H 153/70 H Pulse Oximetry 100 98 98 Oxygen Delivery Method Room Air Room Air Room Air 01/29/24 06:00 01/29/24 06:47 01/29/24 07:17 Temperature 98.5 F 98.7 F Pulse Rate 81 81 Respiratory Rate 16 Blood Pressure 130/56 L 130/56 L Pulse Oximetry 96 96 Oxygen Delivery Method Room Air BMI result Body Mass Index 21.8 Const General: cooperative, no acute distress, alert and awake Nutritional Appearance: well nourished Orientation/consciousness: patient oriented x3 Limitations: no limitations [facility] Ears: hearing grossly normal bilaterally and external ears normal General nose exam: Normal external nose present, no nasal discharge noted and no epistaxis Face images: 2 1. 5cm laceration / abrasion Mouth: Normal oral and palatal mucosa present, no drooling and no muffled voice Eyes General: appearance normal, both eyes and all related structures Periorbital: periorbital findings normal Eyelids: Yes eyelids normal Conjunctivae: conjunctivae normal Pupils: Equal, round and reactive pupils present EOM: EOMs intact bilaterally Neck Neck: Yes normal visual inspection, Yes full ROM and Yes no lymphadenopathy Chest Chest palpation & inspection: normal inspection of the chest Resp Effort & Inspection: normal respiratory effort and able to speak in complete sentences GI Inspection: Yes normal to inspection Neuro General: patient oriented x3 and moves all extremities Cranial nerves: Yes Equal, round and reactive pupils present Cognition (Neuro): normal cognition Motor exam (neuro): 5/5 motor strength present throughout Sensory Exam: Normal double simultaneous stimulation for sensation Coordination: [id number] test normal Extrem Other: small skin tear between the left 2nd and 3rd digits, small skin tear to the dorsal left forearm, abrasion to the left knee General: Yes full ROM and Yes capillary refill normal Psych Appearance: grossly normal Mental Status: mental status grossly normal Affect: normal affect Attitude: cooperative Thought process: Normal thought process present Thought content: Normal thought content present Insight: Good insight present (Psych) Course Course Course Narrative: Physician observation continued, no overnight events reported by nursing. Vital signs stable. Plan is for patient to be discharged home with this morning. 01/28 08:43 Per Merline from , patient to be discharged home to care of with VNA services and physical therapy this am, will return home via BLS. Medications Administered Generic Name Dose Route Start Last Admin Trade Name Freq PRN Reason Stop Dose Admin Allopurinol 200 mg 01/29/24 09:00 01/29/24 08:14 Allopurinol 100 Mg Tablet PO 200 mg BID LAI Administration Aspirin 81 mg 01/29/24 09:00 01/29/24 08:14 Aspirin Enteric Coated 81 Mg Tablet.Dr PO 81 mg DAILY LAI Administration Atorvastatin Calcium 80 mg 01/29/24 09:00 01/29/24 08:15 Atorvastatin Calcium 80 Mg Tablet PO 80 mg DAILY LAI Administration Carbidopa/Levodopa 1.5 tab 01/29/24 08:00 01/29/24 08:15 Carbidopa/Levodopa 25/100 Tablet PO 1.5 tab BID@0800,1600 LAI Administration Magnesium Oxide 400 mg 01/29/24 09:00 01/29/24 08:15 Magnesium Oxide 400 Mg Tablet PO 400 mg DAILY LAI Administration Midodrine 2.5 mg 01/29/24 09:00 01/29/24 09:13 Midodrine Hcl 2.5 Mg Tablet PO 2.5 mg TID LAI Administration Discontinued Medications Generic Name Dose Route Start Last Admin Trade Name Freq PRN Reason Stop Dose Admin Diphtheria/Tetanus/Acell Pertussis 0.5 ml 01/28/24 19:51 01/28/24 19:58 Diphth,Pert(Acell),Tet Adult 0.5 Ml Syringe IM 01/28/24 19:52 0.5 ml .ONCE ONE Administration Lidocaine HCl 15 ml 01/28/24 21:11 01/28/24 23:00 Lidocaine Hcl 1 % Mpf 5 Ml Vial SUBCUT 01/28/24 21:12 15 ml ONCE ONE Administration Procedures Laceration Laceration 1: Site: face Size (cm): 5 Description: irregular Depth: simple, single layer Local Anesthetic: lidocaine 1% Amount of anesthesia used (mL): 5 Pre-repair: wound explored, irrigated extensively and deep structures intact Skin layer closed with: other (prolene) Size (cm): 6-0 and other (4 steri strips + dermabond) Number of sutures: 4 Technique: simple, interrupted dorsal left forearm skin tear: Site: upper extremity Side (If applicable): left Size (cm): 2 Description: irregular Pre-repair: irrigated extensively and deep structures intact Skin layer closed with: other (2 steri-strips) Size (cm): other (2 steri-strips) Technique: other (2 steri-strips) skin tear between the left 2nd and 3rd digits: Site: hand Side (If applicable): left Size (cm): 1 Description: flap Depth: simple, single layer Pre-repair: irrigated extensively and deep structures intact Skin layer closed with: other (2 steri-strips) Size (cm): other (steri-strips) Technique: other (2 steri-strips) Medical Decision Making Medical Decision Making MDM Narrative: Patient is a 78 year old assigned male at with a history of Parkinson disease, atrial fib, and first degree heart block presenting to the emergency department today after a fall. Patient's physical exam was as noted in the physical exam portion of this note. Patient's blood work was unremarkable. Patient's urine showed no acute process. Patient's EKG was unremarkable. Patient's left hand and left knee x-ray showed no acute process. Patient's CT of the head and c-spine showed no acute process. I explained my physical exam findings as well as all test results to the patient and the patient's . I answered all questions asked by the patient and the patient's . Patient's forehead laceration and skin tears were repaired per procedure notes, without incident. Patient's forehead laceration also had an abrasion component and required multiple means of closure including sutures, steri-strips, and dermabond. Patient's states that she prefers the patient stay over night in the emergency department because she has concerns about bringing him home after a fall. Patient and the patient's verbalized agreement and understanding with this treatment plan. Physician observation began at 2315 on 01/28/2024. Differential Diagnosis Differential Diagnoses: The differential diagnosis associated with the presentation includes Fall Laceration Abrasions Admission/Observation Consideration of admission/observation: Escalation of care including admission/observation considered Patient would have been admitted to the hospital had his work up had any findings where hospital admission was appropriate and his clinical presentation warranted hospital admission. Lab Data [facility] Lab Attestation statement: I reviewed the patient's lab results. My interpretation of these results are in the [facility] Rationale portion of this note. 01/28/24 19:19 01/28/24 19:19 Labs: Lab Results 01/28/24 01/28/24 Range/Units 19:19 23:41 WBC 4.6 L (4.8-10.8) X10*3/uL RBC 3.20 L (4.60-5.80) X10*6/uL Hgb 10.8 L (14.0-18.0) g/dl Hct 33.1 L (42.0-52.0) % MCV 103.4 H (80.0-98.0) fL MCH 33.8 H (27.0-33.0) pg MCHC 32.6 (31.0-36.0) g/dl RDW 12.4 (11.0-16.0) % Plt Count 102 L (160-400) X10*3/uL MPV 9.8 (9.4-12.4) fL Immature Gran % (Auto) 0.2 (0.0-0.4) % Neut % (Auto) 74.5 H (45-73) % Lymph % (Auto) 14.3 L (20-40) % Reynolds % (Auto) 7.7 (2-11) % Eos % (Auto) 2.6 (0-4) % Baso % (Auto) 0.7 (0-2) % Lymph # (Auto) 0.7 L (1.2-4.9) X10*3/uL Reynolds # (Auto) 0.4 (0.1-1.2) X10*3/uL Eos # (Auto) 0.1 (0.0-0.4) X10*3/uL Baso # (Auto) 0.0 (0.0-0.2) X10*3/uL Abs Immat Gran (auto) 0.01 (0.00-0.03) X10*3/uL Absolute Neuts (auto) 3.4 (2.0-8.3) x10*3/uL Absolute Nucleated RBC 0.000 (0.0-0.012) X10*3/uL Nucleated RBC % (auto) 0.0 (0.0-0.2) /100WBC Sodium 139 (135-145) mmol/L Potassium 3.6 (3.3-5.1) mmol/L Chloride 106 (96-108) mmol/L Carbon Dioxide 24 (22-29) mmol/L Anion Gap 13 (12-20) BUN 12 (9-16) mg/dL Creatinine 0.93 (0.5-1.4) mg/dL Estim Creat Clear Calc 59.2 Estimated GFR > 60 Random Glucose 154 H (60-115) mg/dL Calcium 8.1 L D (8.4-10.2) mg/dL Total Bilirubin 0.5 (0.0-1.0) mg/dL AST 28 (5-37) U/L ALT 6 (0-40) U/L Alkaline Phosphatase 191 H (39-117) U/L Total Protein 6.5 (6.5-8.0) g/dL Albumin 3.0 L (3.5-5.0) g/dL Urine Color Yellow Urine Appearance Clear Urine pH 6.0 (5.0-9.0) Ur Specific [place] <= 1.005 (1.005-1.025) Urine Protein Negative (Neg-Trace) mg/dL Urine Glucose (UA) Negative (Negative) mg/dL Urine Ketones Negative (Negative) mg/dL Urine Blood Negative (Negative) Urine Nitrite Negative (Negative) Ur Leukocyte Esterase Negative (Negative) Influenza Type A (PCR) NEGATIVE (Negative) Influenza Type B (PCR) NEGATIVE (Negative) RSV RNA Qual (PCR) NEGATIVE (Negative) SARS-CoV-2 RNA (RT-PCR) NEGATIVE (Negative) Independent Interpretation I performed an independent interpretation of an: EKG, Plain X-Ray and CT Scan Interpretation: My interpretation is in agreement with the radiologist's impression of these imaging studies. - EXAMINATION: XR KNEE, LEFT CLINICAL INFORMATION: Pain. Injury. COMPARISON: None available. TECHNIQUE: Four views of the left knee. FINDINGS: No fracture or joint effusion. Alignment is anatomic. There is mild tricompartmental degenerative disease. There are vascular calcifications. No abnormal soft tissue calcification. XR/XR knee LT 3V IMPRESSION: No fracture or dislocation. Mild tricompartmental degenerative disease. Dictated By: Alphonse Baum Jr, DO Signed By: Electronically signed by Alphonse Baum Jr, DO 01/28/24 2116 - EXAMINATION: CT HEAD WITHOUT CONTRAST CLINICAL INFORMATION: Head strike. Fall. Pain. COMPARISON: CT head dated 10/04/2023. TECHNIQUE: Contiguous axial imaging was performed from the skull base to vertex without intravenous administration of contrast. This CT examination was performed using dose optimization techniques as appropriate, variously including the following: *Automated exposure control *Adjustment of mA and/or kV according to patient size (this includes techniques or standardized protocols for targeted exams where dose is matched to indication/reason for exam; i.e. extremities or head) *Use of iterative reconstruction technique DLP: 1007 mGy-cm FINDINGS: There is no acute intracranial hemorrhage. There is no evidence of acute/subacute cerebral or cerebellar infarction. There is mild microvascular ischemic change. There is no midline shift or mass effect. There is no extra-axial fluid collection. Ventricular size is normal. The ocular lenses are surgically absent. The orbits are otherwise unremarkable. There is left frontal scalp swelling. The calvarium is intact. The visualized paranasal sinuses are well aerated. The mastoid air cells are clear. CT/CT head/brain wo IV con IMPRESSION: No acute intracranial pathology. Mild microvascular ischemic change. Left frontal scalp swelling. Dictated By: Alphonse Baum Jr, DO Signed By: Electronically signed by Alphonse Baum Jr, DO 01/28/241939 - EXAMINATION: CT CERVICAL SPINE WITHOUT CONTRAST CLINICAL INFORMATION: Fall. Head strike. Pain. COMPARISON: CT cervical spine dated 10/04/2023. TECHNIQUE: Noncontrast CT of the cervical spine was performed. This CT examination was performed using dose optimization techniques as appropriate, variously including the following: *Automated exposure control *Adjustment of mA and/or kV according to patient size (this includes techniques or standardized protocols for targeted exams where dose is matched to indication/reason for exam; i.e. extremities or head) *Use of iterative reconstruction technique DLP: 1007 mGy-cm FINDINGS: There is straightening of the cervical lordosis. The vertebral bodies otherwise demonstrate anatomic alignment in the sagittal projection. The facet joints are anatomically aligned. Vertebral body heights are maintained. There is degenerative disc disease most pronounced at C5-C6 and C6-C7. There is no acute cervical spine fracture. The C1-C2 relationship is anatomic. The dens is intact. There is multilevel neural foraminal stenosis related to uncovertebral joint hypertrophy and facet arthropathy. Prevertebral soft tissue is normal in appearance. The paraspinal soft tissue is normal in appearance. There are fibrotic changes at the lung apices. There are dense calcifications throughout the visualized aorta. The thyroid gland is normal in appearance. CT/CT cervical spine wo IV con IMPRESSION: No acute osseous cervical spine abnormality. Fleischner guidelines were followed. Dictated By: Alphonse Baum Jr, DO Signed By: Electronically signed by Alphonse Baum Jr, DO 01/28/241943 - EXAMINATION: XR HAND, LEFT CLINICAL INFORMATION: Injury, pain, unspecified site. COMPARISON: None available. TECHNIQUE: PA, lateral, and oblique views of the left hand. FINDINGS: No fracture or subluxation. 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 Moderate to severe radiocarpal degenerative arthroses with significant joint space narrowing. No abnormal soft tissue calcifications nor unexpected radiopaque foreign bodies. XR/XR hand LT min 3V IMPRESSION: 1. No acute fractures or malalignment. 2. 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 Dictated By: Evelyn Holder Signed By: Electronically signed by Evelyn Holder 01/28/241910 - Vent. Rate: 095 BPM Atrial Rate: 095 BPM P-R Int: 228 ms QRS Dur: 094 ms QT Int: 380 ms P-R-T Axes: 000 -51 118 degrees QTc Int: 477 ms Sinus rhythm with 1st degree A-V block with occasional Premature ventricular complexes Left anterior fascicular block Left ventricular hypertrophy with repolarization abnormality (R in aVL , [place] product) Abnormal ECG When compared with ECG of 04-OCT-2023 09:02, QT has lengthened DD/ 1904 Radiology Impression Discussion of test interpretation with radiology: I have reviewed the radiologist's reading. Independent Historian Clinical information obtained from an independent historian. History obtained from or confirmed by: Spouse (patient's provided additional history and confirmed the history provided by the patient.) and EMS (EMS provided additional history and confirmed the history provided by the patient.) Critical Care Time Critical Care Time Critical Care Time: Yes Total Critical Care Time: 200 Attestation: I spent 200 minutes of Critical Care Time with this patient. This does not include time spent on separately reported billable procedures. Discharge Plan Discharge Clinical Impression: Fall, Forehead laceration, Multiple skin tears Patient Disposition: Home, Self-Care Instructions: Care For Your Stitches (DC), Laceration (ED), Steristrips (ED) Additional Instructions: Do NOT get the repaired areas wet for at least the next 7 days. Have the sutures removed in 7-10 days (you have 4 total in your forehead). The steri-strips and skin adheasive will fall off on it's own. Prescriptions: No Action rosuvastatin 20 mg tablet 20 mg PO DAILY 90 Days Qty: 90 3RF carbidopa-levodopa 25-100 mg tablet See Rx Instructions PO QID Qty: 150 6RF Rx Instructions: 1.5 tab in am, 1 tab in afternnon, 1.5 tab in evening, and 1 tab qhs orally 4 times a day; magnesium oxide 400 mg magnesium Tablet 400 mg PO DAILY aspirin 81 mg tablet,delayed release (DR/EC) 81 mg PO DAILY acetaminophen [Tylenol Extra Strength] 500 mg tablet 1,000 mg PO Q6H PRN (Reason: Pain) allopurinol 100 mg tablet 200 mg PO BID midodrine 2.5 mg tablet 2.5 mg PO TID glycopyrrolate 1 mg tablet 1 mg PO DAILY PRN (Reason: excessive drooling.) [facility] Inst[facility] in [facility] and 1 tab at bedtime Referrals: Germaine LICONA [Outside] Print Language: Bahamian
[2024-01-28 19:23] LABS: MANUAL DIFF FLAG NO
[2024-01-28 19:25] LABS: Basophils Percent Auto 0.7 % (0-2); Eosinophils Absolute Auto 0.1 X10*3/uL (0.0-0.4); Eosinophils Percent Auto 2.6 % (0-4); Hematocrit 33.1 % (42.0-52.0); Hemoglobin 10.8 g/dl (14.0-18.0); Imm Gran Abs Auto 0.01 X10*3/uL (0.00-0.03); Imm Gran Pct Auto 0.2 % (0.0-0.4); Lymphocytes Absolute Auto 0.7 X10*3/uL (1.2-4.9); Lymphocytes Percent Auto 14.3 % (20-40); Mean Corpuscular HGB Conc 32.6 g/dl (31.0-36.0); Mean Corpuscular Hemoglobin 33.8 pg (27.0-33.0); Mean Corpuscular Volume 103.4 fL (80.0-98.0); Mean Platelet Volume 9.8 fL (9.4-12.4); Monocytes Absolute Auto 0.4 X10*3/uL (0.1-1.2); Monocytes Percent Auto 7.7 % (2-11); Neutrophils Absolute Auto 3.4 x10*3/uL (2.0-8.3); Neutrophils Percent Auto 74.5 % (45-73); Platelet Count 102 X10*3/uL (160-400); Red Cell Distribution Width 12.4 % (11.0-16.0); White Blood Count 4.6 X10*3/uL (4.8-10.8)
[2024-01-28 19:28] LABS: Appearance Urine Clear; Color Urine Yellow; Glucose Urine UA Negative (Negative); Leukocyte Esterase Urine Negative (Negative); Nitrite Urine Negative (Negative); Specific Gravity - Urine <= 1.005 (1.005-1.025); Urine Blood Negative (Negative); Urine Ketones Negative (Negative); Urine Protein Negative (Neg-Trace)
[2024-01-28 19:48] LABS: Alanine Aminotransferase 6 U/L (0-40); Alkaline Phosphatase 191 U/L (39-117); Anion Gap 13 (12-20); Aspartate Amino Transferase 28 U/L (5-37); Blood Urea Nitrogen 12 mg/dL (9-16); Calcium 8.1 mg/dL (8.4-10.2); Carbon Dioxide 24 mmol/L (22-29); Chloride 106 mmol/L (96-108); Creatinine Clr Calc Pharmacy 59.2; Estimated Glomerular Filt Rate > 60; Glucose Random 154 mg/dL (60-115); Potassium 3.6 mmol/L (3.3-5.1); Sodium 139 mmol/L (135-145); Total Protein 6.5 g/dL (6.5-8.0)
[2024-01-28 19:58] LABS: Bilirubin Total 0.5 mg/dL (0.0-1.0)
[2024-01-28] MEDS: Diphth,Pertus(ACell),Tet Adult 0.5 ML SYRINGE IM (19:58)
--- NOTE | 2024-01-28 20:04 | MHC.EDTECH ---
Addendum entered by Lashay Tucker 01/28/24 20:11: This tech took over care of patient at 1900, Original Note: This tech cleaned patients wounds with peroxide and saline,forehead,left wrist,left webbing of 4th and 5th finger,and left knee. Patient tolerated well and is awaiting provider
[2024-01-28 20:08] VITALS: BP 140/80; PULSE 98; RESP 18; TEMP 36.6; O2SAT 98
--- NOTE | 2024-01-28 20:11 | MHC.EDTECH ---
Patient voided 600MLS of yellow urine in urinal.vitals taken
[2024-01-28 22:02] VITALS: BP 153/70; PULSE 96; RESP 18; TEMP 36.6; O2SAT 98
[2024-01-28] MEDS: Lidocaine HCl 1 % MPF 5 ML VIAL 15 ML SUBCUT (23:00)
--- NOTE | 2024-01-29 00:01 | PC.NURSE ---
pt brought to overflow from main ed. patient and updated for plan of care and deny questions/concerns at this time. pt is axox4. pt denies pain at this time; resting comfortably in hospital bed. PERRLA. neuros intact. bed alarm is on. med rec completed with . MAGGIE aware. nad. pt able to urinate using urinal. pt makes needs known appropriately.
[2024-01-29 00:25] LABS: Influenza A PCR NEGATIVE (Negative); Influenza B PCR NEGATIVE (Negative); Resp Syncy Virus RNA Qual PCR NEGATIVE (Negative); SARS COV2 PCR INHOUSE NEGATIVE (Negative)
--- NOTE | 2024-01-29 01:09 | PC.NURSE ---
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 silvadene applied 2 times daily per . pt repositioned off of coccyx. pt states he can only fall asleep watching tv, pt moved into overflow room 6. tv on and bed alarm on. call javed within reach.
--- NOTE | 2024-01-29 03:24 | PC.NURSE ---
pt refused to stay in bed states he is uncomfortable and sleeps in a recliner at home. pt placed back into overflow bed 5 across the nurses station and sat up in recliner. pt states he is more comfortable now. resting with eyes closed; resp even and unlabored.
[2024-01-29 06:00] VITALS: BP 130/56; PULSE 81; RESP 16; TEMP 36.9; O2SAT 96
[2024-01-29 06:47] VITALS: TEMP 37.1
--- NOTE | 2024-01-29 06:48 | PC.NURSE ---
pt able to ambulate well with 2 assist. pt requested to go to bathroom recliner moved closer to bathroom and pt assisted to toilet. pt had large formed bm. pt helped back into recliner. pt is on phone resting comfortably sitting in recliner nad.
[2024-01-29 07:17] VITALS: BP 130/56; PULSE 81; O2SAT 96
[2024-01-29] MEDS: Aspirin Enteric Coated 81 MG TABLET.DR PO (08:14)
[2024-01-29] MEDS: allopurinoL 100 MG TABLET 200 MG PO (08:14)
[2024-01-29] MEDS: Atorvastatin Calcium 80 MG TABLET PO (08:15)
[2024-01-29] MEDS: Magnesium Oxide 400 MG TABLET PO (08:15)
[2024-01-29] MEDS: Carbidopa/Levodopa 25/100 TABLET 1.5 TAB PO (08:15)
--- NOTE | 2024-01-29 08:38 | PC.NURSE ---
Assumed care of patient at 0700, patient is A&0, respirations even and unlabored, reports 6/10 pain in head and bilateral shoulders, morning meds given per MAR, patient sitting up in bed eating breakfast.
--- NOTE | 2024-01-29 08:47 | MHC.CM.ED ---
Received case management consult overnight. Patient came to the ER due to a fall. Found to have a scalp lac that was repaired. Physical therapy eval completed. Home with services is recommended. Met with patient and , Julia, in regards to discharge planning. Patient lives with Julia, uses walker for mobility, is active with [facility] for [facility] and has home health aides from [facility] that is provided by the [place]. PCP verified. Copy of HCP verified to be on file. Julia feels patient can safely return home with [facility]. Cherry LANIER booked for 11am. Med [facility] with chart. Patient, Julia, Alyx RN and Monique MEYERS aware. Julia verbalized being upset about the care the patient received overnight. Froylan, ER Nurse Artist Model infor provided to Julia. Continue to monitor for d/c needs.
[2024-01-29] MEDS: Midodrine HCl 2.5 MG TABLET PO (09:13)
[2024-01-29 11:09] VITALS: BP 130/56; PULSE 81; RESP 18; TEMP 36.6; O2SAT 96
== END 2024-01-29 11:10 | disposition home or self-care (01) ==
PROVIDERS: Physician Assistant Medical; Emergency Provider Emergency Medicine; PCP Internal Medicine
DX: S01.81XA Laceration without foreign body of other part of head, initial encounter (principal); S51.812A Laceration without foreign body of left forearm, initial encounter; S61.412A Laceration without foreign body of left hand, initial encounter; S00.91XA Abrasion of unspecified part of head, initial encounter; R26.81 Unsteadiness on feet; M25.562 Pain in left knee; R51.9 Headache, unspecified; R94.31 Abnormal electrocardiogram [ECG] [EKG]; R42 Dizziness and giddiness; M79.642 Pain in left hand; W01.10XA Fall on same level from slipping, tripping and stumbling with subsequent striking against unspecified object, initial encounter; Y93.9 Activity, unspecified; Y92.9 Unspecified place or not applicable; Y99.8 Other external cause status; Z79.899 Other long term (current) drug therapy; Z79.01 Long term (current) use of anticoagulants; Z03.818 Encounter for observation for suspected exposure to other biological agents ruled out; Z23 Encounter for immunization
CPT/HCPCS: 0241U; 12013; 12031; 12041; 36415; 70450; 72125; 73130; 73562; 80053; 81003; 85025; 90471; 90715; 93005; 97162; 99285

== ENCOUNTER → 2024-01-28 18:01 | Outpatient (BNV) | payer MEDICARE, SELFPAY | PROVIDERS: Emergency Provider Emergency Medicine; PCP Internal Medicine; Visit Provider Internal Medicine | DX: I44.0 Atrioventricular block, first degree (principal); I49.3 Ventricular premature depolarization; I44.4 Left anterior fascicular block | CPT/HCPCS: 93010 ==

== ENCOUNTER 2024-02-01 04:55 | Inpatient (IN) | payer OTHER, SELFPAY ==
[2024-02-01] VITALS (14 sets, daily range): BP systolic 122–172; BP diastolic 48–82; PULSE 76–99; RESP 15–18; TEMP 36.5–37.3; O2SAT 96–100; BMI 25.4
--- NOTE | 2024-02-01 | ECG_ITS ---
Test Reason : IREGULAR HR Blood Pressure : / mmHG Vent. Rate : 101 BPM Atrial Rate : 101 BPM P-R Int : 080 ms QRS Dur : 066 ms QT Int : 416 ms P-R-T Axes : 000 -63 139 degrees QTc Int : 539 ms Artifact in tracing Sinus tachycardia Premature ventricular complexes Left axis deviation Left ventricular hypertrophy with repolarization abnormality ( R in aVL ) Abnormal ECG When compared with ECG of 01-FEB-2024 08:16, No significant changes seen Referred By: Kira Almendarez Electronically Signed By:STORM ISIDRO
--- NOTE | ~2024-02-01 | XR_ITS ---
EXAMINATION: XR CHEST CLINICAL INFORMATION: Fall. Chest trauma. COMPARISON: Previous chest x-ray October 2023 TECHNIQUE: Frontal view of the chest was obtained. FINDINGS: Aortic valve replacement mediastinal clips and median sternotomy wires. The cardiac silhouette is enlarged but stable. There is volume loss to the left hemithorax with shift of the central mediastinal structures to the left. There are increased peripheral markings in the left upper lung and right lung base probably chronic related to interstitial disease. Subsegmental atelectasis at the left lung base. No other acute pulmonary findings. No pleural effusion or pneumothorax. No acute fracture seen. Old right lower lateral rib fractures. Degenerative changes of the spine and shoulders. XR/XR chest 1V IMPRESSION: Subsegmental atelectasis at the left lung base. Otherwise stable chest x-ray from October 2023.
--- NOTE | ~2024-02-01 | CT_ITS ---
EXAMINATION: CT HEAD WITHOUT CONTRAST CLINICAL INFORMATION: Fall. Head trauma. COMPARISON: Previous head CT December 2023 TECHNIQUE: Contiguous axial imaging was performed from the skull base to vertex without intravenous administration of contrast. This CT examination was performed using dose optimization techniques as appropriate, variously including the following: *Automated exposure control *Adjustment of mA and/or kV according to patient size (this includes techniques or standardized protocols for targeted exams where dose is matched to indication/reason for exam; i.e. extremities or head) *Use of iterative reconstruction technique DLP: 735 mGy-cm FINDINGS: There is no evidence of an extra-axial collection. There is no evidence of intra or extra-axial hemorrhage. The ventricles and extra-axial CSF spaces are prominent suggestive of mild generalized atrophy. There is nonspecific periventricular white matter disease. There may be an old right thalamic lacunar infarct that appears unchanged. There is calcification along the right cerebellar tentorium. No mass, mass effect or acute infarct is seen. Review of bone windows is normal. No skull fracture. Mild high attenuation soft tissue swelling over the left frontal bone probably representing hematoma slightly decreased from prior exam. CT/CT head/brain wo IV con IMPRESSION: No acute intracranial findings. No change from December 2023 exam.
--- NOTE | ~2024-02-01 | CT_ITS ---
EXAMINATION: CT FACIAL BONES WITHOUT CONTRAST CLINICAL INFORMATION: Trauma COMPARISON: None available. TECHNIQUE: Axial images through the facial bones without IV contrast. Sagittal and coronal reconstructions on the technologist workstation were performed. This CT examination was performed using dose optimization techniques as appropriate, variously including the following: *Automated exposure control *Adjustment of mA and/or kV according to patient size (this includes techniques or standardized protocols for targeted exams where dose is matched to indication/reason for exam; i.e. extremities or head) *Use of iterative reconstruction technique DLP: 334 mGy-cm FINDINGS: There is artifact from dental hardware. There is soft tissue swelling over the left frontal bone, left lateral nose and medial preseptal soft tissues of the left orbit. No fracture or dislocation. Orbits are otherwise normal. Minimal membranous soft tissue thickening in the left maxillary sinus. Visualized paranasal sinuses are otherwise clear. Mastoid air cells and middle ears are clear. Temporomandibular joints are normal. CT/CT facial bones wo IV con IMPRESSION: Soft tissue swelling over the left frontal bone, left lateral nose and medial preseptal soft tissues of the left orbit. No fracture or dislocation seen.
--- NOTE | ~2024-02-01 | CT_ITS ---
EXAMINATION: CT CERVICAL SPINE WITHOUT CONTRAST CLINICAL INFORMATION: Fall. Trauma. COMPARISON: Previous cervical spine CT 01/28/2024 TECHNIQUE: Axial images through the cervical spine without IV contrast. Sagittal and coronal reconstructions on the technologist workstation were performed. This CT examination was performed using dose optimization techniques as appropriate, variously including the following: *Automated exposure control *Adjustment of mA and/or kV according to patient size (this includes techniques or standardized protocols for targeted exams where dose is matched to indication/reason for exam; i.e. extremities or head) *Use of iterative reconstruction technique DLP: 325 mGy-cm FINDINGS: Bone alignment is normal. No fracture or dislocation. Multilevel degenerative spondylosis degenerative disc disease greatest at C5-C6 and C6-C7. Degenerative changes at the C1 dens articulation. Mild bilateral facet arthritis. Soft tissue ossification adjacent to the C5 spinous process likely from old soft tissue trauma. Prevertebral soft tissues are normal. Bilateral carotid calcification. Fibrosis, emphysematous change and pleural thickening at the lung apices. CT/CT cervical spine wo IV con IMPRESSION: Degenerative changes. No fracture or dislocation. Fleischner guidelines were followed.
[2024-02-01 07:44] LABS: Appearance Urine Clear; Color Urine Yellow; Glucose Urine UA Negative (Negative); Leukocyte Esterase Urine Negative (Negative); Nitrite Urine Negative (Negative); PH 5.5 (5.0-9.0); Urine Blood Negative (Negative); Urine Ketones Negative (Negative); Urine Protein Negative (Neg-Trace)
--- NOTE | 2024-02-01 07:47 | ECG_ITS ---
Test Reason : fall Blood Pressure : / mmHG Vent. Rate : 093 BPM Atrial Rate : 000 BPM P-R Int : 000 ms QRS Dur : 092 ms QT Int : 362 ms P-R-T Axes : 000 -52 101 degrees QTc Int : 450 ms Probably sinus rhythm but baseline artifact Left anterior fascicular block Left ventricular hypertrophy with repolarization abnormality ( R in aVL ) Abnormal ECG When compared with ECG of 28-JAN-2024 19:04, No significant changes seen Referred By: Roman Sommer Electronically Signed By:STORM ISIDRO
--- NOTE | 2024-02-01 07:47 | ED.FALL ---
HPI - Fall General Chief Complaint: Fall Stated Complaint: fall Time Seen by Provider: 02/01/24 06:45 Source: patient and family () Mode of arrival: ambulatory Limitations: no limitations History of Present Illness HPI Narrative: 78 yo m with pmhx of PAF, first degree heart block, Parkinson disease, orthostatic hypotension, atherosclerotic cardiovascular disease presents after a fall this morning. He states he was getting up from his recliner and lost his footing and hit his left eyebrow and left forehead on a coffee table. Patient states he felt lightheaded before the fall, but did not lose consciousness. Patient states he is only on aspirin, no other blood thinners. Patient was here on Sunday for a fall, and received sutures then. Per , they received a call yesterday that he had afib, but did not know future plan for this diagnosis. Patient denies cp, sob, vision changes, pain with EOM movement, fevers, chills, nausea, vomiting, diarrhea. Related Data Home Medications ?Medication ?Instructions ?Recorded ?Confirmed acetaminophen 500 mg tablet 1,000 mg PO Q6H PRN Pain 09/15/20 01/28/24 (Tylenol Extra Strength) aspirin 81 mg tablet,delayed 81 mg PO DAILY 09/15/20 01/28/24 release allopurinol 100 mg tablet 200 mg PO BID 07/18/21 01/28/24 glycopyrrolate 1 mg tablet 1 mg PO DAILY PRN excessive 05/07/23 01/28/24 drooling. midodrine 2.5 mg tablet 2.5 mg PO TID 05/07/23 01/28/24 magnesium oxide 400 mg PO DAILY 01/28/24 01/28/24 Previous Rx's ?Medication ?Instructions ?Recorded rosuvastatin 20 mg tablet 20 mg PO DAILY 90 days #90 tabs 09/17/23 carbidopa 25 mg-levodopa 100 mg See Rx Instructions PO QID #150 12/20/23 tablet tabs Allergies Allergy/AdvReac Type Severity Reaction Status Date / Time No Known Allergies Allergy Verified 02/01/24 05:16 Review of Systems Review of Systems: Yes all other systems are reviewed and are negative PMFSH Past Medical History Attestation statement: The following information was validated with the patient. 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 Social History Social History Unable to assess alcohol history related to: Unknown Alcohol intake: former Patient Tobacco Use Status: Former Tobacco user Smoked in Last 30 Days: No Use of substances other than those prescribed or required for medical reasons: No Advance Directives: Yes Advance Directives on File: Yes Advance Directives Date on File: 03/20/23 Physical Exam Vital Signs: Vital Signs: Last Vital Signs Temp 98.1 F 02/01/24 13:58 Pulse 91 02/01/24 13:58 Resp 16 02/01/24 13:58 BP 137/69 02/01/24 13:58 Pulse Ox 99 02/01/24 13:58 O2 Del Method Room Air 02/01/24 13:58 BMI result Body Mass Index 25.4 vss Appearance: Alert.? Oriented X3.? No acute distress.?GCS 15 Head: Normocephalic, left eye swollen shut when opened EOMI no optic nerve entrapments, laceration with ecchymosis from left eyebrow to left forehead. Right eye normal. ( old lac to forehead with sutures noted aswell) Eyes: Pupils equal, round and reactive to light.? Neck: Normal inspection.? Neck supple.? CVS: Normal heart rate and rhythm.? Pulses normal.? Respiratory: No respiratory distress.? Breath sounds normal.? Skin: Skin warm and dry.? Normal skin color.? Normal skin turgor.? + skin tear w/ butterfly sutures to left forearm ( old) wrapped) Extremities: No lower extremity edema.? No calf ttp. Global weakness Back: No midline tenderness, no C-spine tenderness, full range of motion, no CVA tenderness bilaterally. Neuro: Oriented X 3.? No motor deficit.? No sensory deficit. CN 2-12 intact Course Reevaluation(s) Reevaluation #1: Verbal consent obtained. Wound was cleaned and lidocaine used to frontal aspect of left eyebrow and forehead. 6 sutures used to close wound. Patient tolerated procedure well. Time: 08:07 Reevaluation #2: + orthostats CBC with a macrocytic anemia appears to be around patient's baseline. Chemistry with no acute findings requiring intervention. Troponin negative x2, nonischemic EKG. BNP 806, patient receiving gentle hydration due to orthostatic hypotension. Will repeat vitals. Still reporting symptomatic dizziness with positional changes. UA without infection. CT cervical spine no acute findings. No fractures or dislocations. Head CT no acute intracranial findings. Face CT soft tissue swelling overlying the left frontal bone, lateral left nose and medial preseptal soft tissue of the left orbit. No fracture dislocation extraocular movements intact pain-free no signs of nerve entrapment on exam. Plan hospital admission Time: 14:48 Medications Administered Discontinued Medications Generic Name Dose Route Start Last Admin Trade Name Freq PRN Reason Stop Dose Admin Sodium Chloride 500 mls @ 500 mls/hr 02/01/24 11:30 02/01/24 12:56 Ns IV 02/01/24 12:29 Infused .Q1H LAI Infusion Lidocaine/Epinephrine 10 ml 02/01/24 07:14 02/01/24 07:33 Lidocaine Hcl 1% Pf/Epi 1:200,000 10 Ml Vial INFILTRATI 02/01/24 07:15 10 ml ONCE ONE Administration Medical Decision Making Medical Decision Making [facility] Narrative: 78 yo m with pmhx of frequent falls, Parkinson's presents with fall and headstrike to left frontal aspect for eyebrow and forehead. Pt felt lightheaded prior to fall. Per , pt was told he had afib yesterday. No LOC, on aspirin. PE- benign; Normocephalic, left eye swollen shut, laceration with ecchymosis from left eyebrow to left forehead. Right eye normal. GCS 15 Hx and PE likely mechanical fall. Some concern for metabolic derangements, arrhythmias prior to fall. Plan- imaging, labs Differential Diagnosis Differential Diagnoses: The differential diagnosis associated with the presentation includes Hx and PE likely mechanical fall. Some concern for metabolic derangements, arrhythmias prior to fall. Lab Data 02/01/24 07:58 02/01/24 07:58 Labs: Lab Results 02/01/24 02/01/24 02/01/24 Range/Units 07:37 07:58 11:34 WBC 6.2 (4.8-10.8) X10*3/uL RBC 3.07 L (4.60-5.80) X10*6/uL Hgb 10.5 L (14.0-18.0) g/dl Hct 32.0 L (42.0-52.0) % MCV 104.2 H (80.0-98.0) fL MCH 34.2 H (27.0-33.0) pg MCHC 32.8 (31.0-36.0) g/dl RDW 12.8 (11.0-16.0) % Plt Count 104 L (160-400) X10*3/uL MPV 10.4 (9.4-12.4) fL Immature Gran % (Auto) 0.3 (0.0-0.4) % Neut % (Auto) 77.7 H (45-73) % Lymph % (Auto) 11.7 L (20-40) % [place] % (Auto) 7.2 (2-11) % Eos % (Auto) 2.6 (0-4) % Baso % (Auto) 0.5 (0-2) % Lymph # (Auto) 0.7 L (1.2-4.9) X10*3/uL [place] # (Auto) 0.5 (0.1-1.2) X10*3/uL Eos # (Auto) 0.2 (0.0-0.4) X10*3/uL Baso # (Auto) 0.0 (0.0-0.2) X10*3/uL Abs Immat Gran (auto) 0.02 (0.00-0.03) X10*3/uL Absolute Neuts (auto) 4.8 (2.0-8.3) x10*3/uL Absolute Nucleated RBC 0.000 (0.0-0.012) X10*3/uL Nucleated RBC % (auto) 0.0 (0.0-0.2) /100WBC Sodium 141 (135-145) mmol/L Potassium 3.4 (3.3-5.1) mmol/L Chloride 109 H (96-108) mmol/L Carbon Dioxide 25 (22-29) mmol/L Anion Gap 10 L (12-20) BUN 17 H (9-16) mg/dL Creatinine 0.84 (0.5-1.4) mg/dL Estim Creat Clear Calc 73.6 Estimated GFR > 60 Random Glucose 85 (60-115) mg/dL Calcium 8.3 L (8.4-10.2) mg/dL Magnesium 1.7 (1.6-2.6) mg/dL Total Bilirubin 0.6 (0.0-1.0) mg/dL AST 24 (5-37) U/L ALT 8 (0-40) U/L Alkaline Phosphatase 182 H (39-117) U/L Total Creatine Kinase 68 (38-174) U/L Troponin I High Sens 11.9 12.8 (<3.5-35.0) ng/L B-Natriuretic Peptide 806 H (<100) pg/mL Total Protein 6.4 L (6.5-8.0) g/dL Albumin 3.0 L (3.5-5.0) g/dL Urine Color Yellow Urine Appearance Clear Urine pH 5.5 (5.0-9.0) Ur Specific [place] 1.010 (1.005-1.025) Urine Protein Negative (Neg-Trace) mg/dL Urine Glucose (UA) Negative (Negative) mg/dL Urine Ketones Negative (Negative) mg/dL Urine Blood Negative (Negative) Urine Nitrite Negative (Negative) Ur Leukocyte Esterase Negative (Negative) Urine RBC 0-2 (0-2) /HPF Urine WBC 0-5 (0-5) /HPF Ur Squamous Epith Cells 0-2 (0-2) /HPF Calcium Oxalate Crystal Present Urine Bacteria None Seen (None Seen) Hyaline Casts 0-2 (0-2) /LPF Critical Care Time Critical Care Time Critical Care Time: Yes Total Critical Care Time: 35 Attestation: I attest to this time spent taking care of the patient, obtaining history, physical, reviewing labs, imaging, speaking to my attending, specialist or hospitalist. Discharge Plan Discharge Clinical Impression: Parkinson disease, Orthostatic hypotension, First degree heart block, Fall, Laceration of head Patient Disposition: Admitted As Inpatient Prescriptions: No Action rosuvastatin 20 mg tablet 20 mg PO DAILY 90 Days Qty: 90 3RF carbidopa-levodopa 25-100 mg tablet See Rx Instructions PO QID Qty: 150 6RF Rx Instructions: 1.5 tab in am, 1 tab in afternnon, 1.5 tab in evening, and 1 tab qhs orally 4 times a day; magnesium oxide 400 mg magnesium Tablet 400 mg PO DAILY aspirin 81 mg tablet,delayed release (DR/EC) 81 mg PO DAILY acetaminophen [Tylenol Extra Strength] 500 mg tablet 1,000 mg PO Q6H PRN (Reason: Pain) allopurinol 100 mg tablet 200 mg PO BID midodrine 2.5 mg tablet 2.5 mg PO TID glycopyrrolate 1 mg tablet 1 mg PO DAILY PRN (Reason: excessive drooling.) [facility] Inst[facility] and 1 tab at bedtime Print Language: Polish
[2024-02-01 07:52] LABS: Bacteria Urine None Seen (None Seen); Calcium Oxalate Crystals Urine Present; Hyaline Casts Urine 0-2 /LPF (0-2); RBC Urine 0-2 /HPF (0-2); Squamous Epithelial Cell Urine 0-2 /HPF (0-2); WBC Urine 0-5 /HPF (0-5)
[2024-02-01 08:01] LABS: MANUAL DIFF FLAG NO
[2024-02-01 08:04] LABS: Basophils Percent Auto 0.5 % (0-2); Eosinophils Absolute Auto 0.2 X10*3/uL (0.0-0.4); Eosinophils Percent Auto 2.6 % (0-4); Hemoglobin 10.5 g/dl (14.0-18.0); Imm Gran Abs Auto 0.02 X10*3/uL (0.00-0.03); Imm Gran Pct Auto 0.3 % (0.0-0.4); Lymphocytes Absolute Auto 0.7 X10*3/uL (1.2-4.9); Lymphocytes Percent Auto 11.7 % (20-40); Mean Corpuscular HGB Conc 32.8 g/dl (31.0-36.0); Mean Corpuscular Hemoglobin 34.2 pg (27.0-33.0); Mean Corpuscular Volume 104.2 fL (80.0-98.0); Mean Platelet Volume 10.4 fL (9.4-12.4); Monocytes Absolute Auto 0.5 X10*3/uL (0.1-1.2); Monocytes Percent Auto 7.2 % (2-11); Neutrophils Absolute Auto 4.8 x10*3/uL (2.0-8.3); Neutrophils Percent Auto 77.7 % (45-73); Platelet Count 104 X10*3/uL (160-400); Red Blood Count 3.07 X10*6/uL (4.60-5.80); Red Cell Distribution Width 12.8 % (11.0-16.0); White Blood Count 6.2 X10*3/uL (4.8-10.8)
--- NOTE | 2024-02-01 08:07 | PC.NURSE ---
this RN resumed care of pt at 0700. a&ox4. vss and up to date. pt warm to touch - rectal temp obtained - afebrile. head laceration sutured by PA student. bleeding controlled. area wrapped w/ abd pad and gauze. pt remains in c-collar. positioned upright. 20gIV placed in the right AC - labs obtained/sent to lab. no sob/wob noted. respirations even and unlabored. bedside for support. plan of care ongoing. call javed placed within reach.
[2024-02-01 08:24] LABS: Alanine Aminotransferase 8 U/L (0-40); Alkaline Phosphatase 182 U/L (39-117); Anion Gap 10 (12-20); Aspartate Amino Transferase 24 U/L (5-37); Bilirubin Total 0.6 mg/dL (0.0-1.0); Blood Urea Nitrogen 17 mg/dL (9-16); Calcium 8.3 mg/dL (8.4-10.2); Carbon Dioxide 25 mmol/L (22-29); Chloride 109 mmol/L (96-108); Creatinine Clr Calc Pharmacy 73.6; Estimated Glomerular Filt Rate > 60; Glucose Random 85 mg/dL (60-115); Magnesium 1.7 mg/dL (1.6-2.6); Potassium 3.4 mmol/L (3.3-5.1); Sodium 141 mmol/L (135-145); Total Protein 6.4 g/dL (6.5-8.0)
[2024-02-01 08:30] LABS: B Type Natriuretic Peptide 806 pg/mL (<100)
[2024-02-01 08:31] LABS: Troponin-I High Sensitivity 11.9 ng/L (<3.5-35.0)
--- NOTE | 2024-02-01 09:31 | PC.NURSE ---
pt to xray at this time.
--- NOTE | 2024-02-01 09:56 | MHC.CM.ED ---
Received notification from Germaine LICONA that patient is active with their agency. Return referral made in [facility] so [facility] can follow for d/c needs.
[2024-02-01] MEDS: 0.9 % Sodium Chloride 500 ML IV ×2 (11:43→14:53)
--- NOTE | 2024-02-01 11:44 | PC.NURSE ---
repeat trop obtained/sent to lab. IVF administered per provider order. respirations remain even/unlabored. bedside for support. call javed placed within reach.
[2024-02-01 12:04] LABS: Troponin-I High Sensitivity 12.8 ng/L (<3.5-35.0)
--- NOTE | 2024-02-01 13:59 | PC.NURSE ---
vss and up to date at this time. pt sitting upright/eating lunch in no apparent distress. currently attempting to provide pt w/ hospital bed to promote comfort. remains bedside for support. respirations remain even and unlabored. call javed placed within reach.
--- NOTE | 2024-02-01 14:53 | PC.NURSE ---
pt transitioned to hospital bed to promote comfort. IVF administered at this time.
--- NOTE | 2024-02-01 15:30 | PC.NURSE ---
pt/ speaking w/ admitting provider in regards to plan of care at this time.
--- NOTE | 2024-02-01 15:55 | PC.NURSE ---
positive orthostatic vital signs completed at this time. ED provider notified/aware. pt reporting extreme dizzy while switching positions. pt repositioned back into bed comfortably. plan of care ongoing.
--- NOTE | 2024-02-01 16:12 | PHA.MEDREC ---
Pharmacy Consult ? Medication Reconciliation Pharmacy has completed the medication reconciliation. Patient's confirmed medications based on claim history. Reports he takes allopurinol 1 tab BID instead of 2 daily. She reported [facility] BID instead of daily for the drooling. Patient's is unsure about the KCl. Waiting for the list from the [facility] to confirm any additional changes. Will inform provider if anything change when [facility] list comes. Candy Caro, PharmD
--- NOTE | 2024-02-01 16:35 | PM.IMHP ---
History of Present Illness Date of Service: 02/01/24 Attending physician on admission: Andres Miranda Chief Complaint: Dizziness/lightheadedness with fall at home Pt is a 78-year-old male with a PMH significant for Parkinson's disease, recently diagnosed paroxysmal AFib, orthostatic hypotension,?CAD, and aortic valve replacement who presents to the ED for evaluation of fall at home. Pt reports he was getting up out of his recliner when he felt lightheaded/dizzy and lost his footing, striking his left forehead on the coffee table. Denies LOC. In the ED pt was found to be positive for orthostatic hypotension, and required 6 sutures to close laceration to left forehead/eyebrow. Patient had similar fall at home on Sunday of this week, also with headstrike that required sutures to close laceration to forehead. Currently pt denies lightheadedness, dizziness, headache. No acute vision changes. Denies chest pain/pressure, palpitations. Shortness of breath. Denies fever, chills, nausea, vomiting, abdominal pain. Patient's notes was in rehab for 10 days in March of last year and started on midodrine for orthostatic hypotension. Reports that it initially worked well lately patient has been getting lightheaded and dizzy with standing. Has fallen approximately 6 times in the last 6 months. In the ED pt with elevated HR up to 98 and orthostatics positive x2. Labs were grossly unremarkable and around baseline for patient. Stable macrocytic anemia of 10/320. No significant electrolyte abnormalities. Renal function baseline. Hepatic function baseline. BNP elevated at 806 (lower than previous readings). Initial troponin 11.9 with repeat flat at 12.8. Albumin 3.0. UA negative for UTI. Tested negative for flu, RSV, COVID. CXR found subsegmental atelectasis in lung base but otherwise stable compared to previous. CT of head negative for acute intracranial findings. CT of face found no fracture or dislocation, but soft tissue swelling over left frontal bone, nose, and orbit. CT?of cervical spine found no fracture or dislocation but showed degenerative changes. EKG demonstrated possible accelerated junctional rhythm with pulmonary disease pattern. Pt was treated with IVF. Pt will be admitted to the hospital under observation for treatment and further evaluation of symptomatic orthostatic hypotension. Review of Systems Review of Systems: Lightheadedness, dizziness Fall at home with head strike Denies LOC No headache, acute vision changes Denies chest pain/pressure, palpitations No fever, chills, nausea, vomiting, abdominal pain PMFSH Medical History Frequent falls Dyspnea on exertion Abnormal CT scan, chest Shortness of breath on exertion Heel ulcer Ulcer of sacral region, stage 1 Parkinson disease Alcoholic liver disease Orthostatic hypotension PAF (paroxysmal atrial fibrillation) Atherosclerotic cardiovascular disease Family History Father CVD (cardiovascular disease) Mother No problems noted. Surgical History S/P hip replacement Status post aortic valve replacement with bioprosthetic valve History of coronary artery bypass graft x 3 (~10/2019) Social History Unable to assess alcohol history related to: Unknown Alcohol intake: former Patient Tobacco Use Status: Former Tobacco user Smoked in Last 30 Days: No Use of substances other than those prescribed or required for medical reasons: No Advance Directives: Yes Advance Directives on File: Yes Advance Directives Date on File: 03/20/23 Do you have a plan to hurt others: No Plan Nutrition Risks: No Nutritional Risk Meds Allergies Allergy/AdvReac Type Severity Reaction Status Date / Time No Known Allergies Allergy Verified 02/01/24 05:16 Active Medications: Current Medications Acetaminophen (Acetaminophen 325 Mg Tablet) 650 mg PO Q6H PRN PRN Reason: Pain, Mild (Pain Scale 1-3) Benzonatate (Benzonatate 100 Mg Capsule) 100 mg PO TID PRN PRN Reason: Cough Docusate Sodium (Docusate Sodium 100 Mg Capsule) 100 mg PO DAILY PRN PRN Reason: Constipation Enoxaparin Sodium (Enoxaparin Sodium 40 Mg/0.4 Ml Syringe) 40 mg SUBCUT Q24H LAI Melatonin (Melatonin 3 Mg Tablet) 6 mg PO BEDTIME PRN PRN Reason: Insomnia Ondansetron HCl (Ondansetron Hcl 4 Mg/2 Ml Vial) 4 mg IVPUSH Q8H PRN PRN Reason: Nausea and Vomiting Sodium Chloride (0.9 % Sodium Chloride Flush 3 Ml Syringe) 3 ml IVFLUSH QSHIFT [facility] Home Medications ?Medication ?Instructions ?Recorded ?Confirmed ?Last Taken ?Type acetaminophen 500 mg tablet 1,000 mg PO BID Pain 09/15/20 02/01/24 01/31/24 History (Tylenol Extra Strength) aspirin 81 mg tablet,delayed 81 mg PO DAILY 09/15/20 02/01/24 01/31/24 History release allopurinol 100 mg tablet 100 mg PO BID 07/18/21 02/01/24 01/31/24 History glycopyrrolate 1 mg tablet 1 mg PO BID excessive drooling. 05/07/23 02/01/24 01/31/24 History midodrine 2.5 mg tablet 2.5 mg PO TID@0600,1200,1800 05/07/23 02/01/24 01/31/24 History magnesium oxide 400 mg PO DAILY 01/28/24 02/01/24 01/31/24 History carbidopa 25 mg-levodopa 100 mg 1 tab PO BID@1200,2100 02/01/24 02/01/24 01/31/24 History tablet carbidopa 25 mg-levodopa 100 mg 1.5 tab PO BID@0900,1800 02/01/24 02/01/24 01/31/24 History tablet potassium chloride 10 mEq 10 meq PO BID 02/01/24 Unknown History capsule,extended release rosuvastatin 20 mg tablet 20 mg PO BEDTIME 02/01/24 02/01/24 01/31/24 History silver sulfadiazine 1 % topical 1 appl topical BID ulcer 02/01/24 02/01/24 01/31/24 History cream Physical Exam Vital Signs and Narrative: Vital Signs: Last Vital Signs Temp 98.1 F 02/01/24 13:58 Pulse 98 02/01/24 16:01 Resp 15 02/01/24 16:01 BP 172/73 H 02/01/24 16:01 Pulse Ox 99 02/01/24 16:01 O2 Del Method Room Air 02/01/24 16:01 BMI result Body Mass Index 25.4 Constitutional: Alert, in no acute distress. Mental Status: Oriented to person, place and time. Eyes: Pupils are equal, round, and reactive to light. Head/face: Left eye swollen with significant surrounding ecchymosis. Had wrapped in clean bandage. Ear, Nose, and Throat: Oropharynx clear, mucous membranes moist. Ears and nose without deformities. Trachea midline. Respiratory: Clear to auscultation bilaterally. No wheezing, rales, or rhonchi. Cardiovascular: S1, S2 regular. No murmurs, rubs, or gallops. Gastrointestinal: Abdomen soft, non-tender, non-distended. Normal bowel sounds. Neurologic: Cranial nerves II-XII are grossly intact bilaterally. No focal neurological deficits. Moves all extremities spontaneously. Global eyes weakness noted. Upper and lower extremity tremors noted. Skin: Warm, dry. Extremities: No edema. Left forearm wrapped in clean bandage. Psychiatric: Normal mood and affect. Results Labs 02/01/24 07:58 02/01/24 07:58 Labs: Laboratory Results - last 24 hr 02/01/24 02/01/24 02/01/24 07:37 07:58 11:34 MCV 104.2 H MCH 34.2 H MCHC 32.8 RDW 12.8 Plt Count 104 L MPV 10.4 Immature Gran % (Auto) 0.3 Neut % (Auto) 77.7 H Lymph % (Auto) 11.7 L [place] % (Auto) 7.2 Eos % (Auto) 2.6 Baso % (Auto) 0.5 Lymph # (Auto) 0.7 L [place] # (Auto) 0.5 Eos # (Auto) 0.2 Baso # (Auto) 0.0 Abs Immat Gran (auto) 0.02 Absolute Neuts (auto) 4.8 Absolute Nucleated RBC 0.000 Nucleated RBC % (auto) 0.0 Anion Gap 10 L Estim Creat Clear Calc 73.6 Estimated GFR > 60 Random Glucose 85 Calcium 8.3 L Magnesium 1.7 Total Bilirubin 0.6 AST 24 ALT 8 Alkaline Phosphatase 182 H Total Creatine Kinase 68 Troponin I High Sens 11.9 12.8 B-Natriuretic Peptide 806 H Total Protein 6.4 L Albumin 3.0 L Urine Color Yellow Urine Appearance Clear Urine pH 5.5 Ur Specific Call 1.010 Urine Protein Negative Urine Glucose (UA) Negative Urine Ketones Negative Urine Blood Negative Urine Nitrite Negative Ur Leukocyte Esterase Negative Urine RBC 0-2 Urine WBC 0-5 Ur Squamous Epith Cells 0-2 Calcium Oxalate Crystal Present Urine Bacteria None Seen Hyaline Casts 0-2 Imaging Radiologist's Impressions: Impressions Cervical Spine CT 02/01/24 06:47 IMPRESSION: Degenerative changes. No fracture or dislocation. Fleischner guidelines were followed. Head CT 02/01/24 06:47 IMPRESSION: No acute intracranial findings. No change from December 2023 exam. Chest X-Ray 02/01/24 09:40 IMPRESSION: Subsegmental atelectasis at the left lung base. Otherwise stable chest x-ray from October 2023. Face CT 02/01/24 09:56 IMPRESSION: Soft tissue swelling over the left frontal bone, left lateral nose and medial preseptal soft tissues of the left orbit. No fracture or dislocation seen. Assessment and Plan (1) Orthostatic hypotension: Status: Acute Plan Pt is a 78-year-old male with a PMH significant for Parkinson's disease, recently diagnosed paroxysmal AFib, orthostatic hypotension,?CAD, and aortic valve replacement who presents to the ED for evaluation of fall at home. Pt was treated with IVF. Pt will be admitted to the hospital under observation for treatment and further evaluation of symptomatic orthostatic hypotension. Orthostatic hypotension Orthostatics positive x2 in the ED despite patient getting IVF in the ED Patient was apparently symptomatic with lightheadedness and dizziness with standing Will repeat orthostatics Q shift Continue midodrine Abnormal EKG EKG showing possible accelerated junctional rhythm Patient apparently received phone call about possibly being AFib earlier this week Will repeat medical staff services coordinator on telemetry Generalized weakness/frequent falls at home Pt with fall at home on Sunday needing sutures to forehead Pt with fall this morning needing additional sutures to forehead PT evaluation Parkinson's disorder Continue carbidopa levodopa CAD/HLD Continue aspirin, statin Gout Continue allopurinol DNR/DNI Attending:?Dr. Miranda DVT Prophylaxis: Lovenox Patient will be admitted to the hospital under observation for treatment and further evaluation orthostatic hypotension frequent falls at home. Quality Stroke Does the patient have a stroke diagnosis?: No VTE Prior VTE?: No VTE Risk Level:: Medical - moderate - high VTE Device Contraindication: Treatment Not Indicated VTE Drug Contraindication: N/A - Med Ordered
--- NOTE | 2024-02-01 16:51 | MHC.EDTECH ---
Patient bedpad changed and repositioned
[2024-02-01] MEDS: Enoxaparin Sodium 40 MG/0.4 ML SYRINGE SUBCUT (17:25)
[2024-02-01] MEDS: Carbidopa/Levodopa 25/100 TABLET 1.5 TAB PO (17:25)
[2024-02-01] MEDS: Magnesium Oxide 400 MG TABLET PO (17:25)
[2024-02-01] MEDS: Aspirin Enteric Coated 81 MG TABLET.DR PO (17:30)
[2024-02-01] MEDS: Midodrine HCl 2.5 MG TABLET PO (17:30)
--- NOTE | 2024-02-01 17:35 | PC.NURSE ---
vss and up to date. nsr/sinus tachy on the clinical unit educator HR 99-105 bpm. denies chest pain/palpitations. PVCs noted in rhythm. - medications administered per provider order. whole w/ water. no swallowing difficulties noted. pt awaiting bed assignment. call javed placed within reach.
--- NOTE | 2024-02-01 17:50 | PC.NURSE ---
admission worksheet complete. transport notified/aware.
[2024-02-01] MEDS: Lactated Ringers 1,000 ML 80 ML IVCONT (18:24)
[2024-02-01] MEDS: Glycopyrrolate 1 MG TABLET PO (20:57)
[2024-02-01] MEDS: allopurinoL 100 MG TABLET PO (20:57)
[2024-02-01] MEDS: Carbidopa/Levodopa 25/100 TABLET 1 TAB PO (20:57)
[2024-02-01] MEDS: Atorvastatin Calcium 80 MG TABLET PO (20:57)
[2024-02-02] VITALS (12 sets, daily range): BP systolic 86–165; BP diastolic 47–75; PULSE 58–102; RESP 16–20; TEMP 36.4–36.9; O2SAT 96–99
--- NOTE | 2024-02-02 | ECG_ITS ---
Test Reason : bradycardia Blood Pressure : / mmHG Vent. Rate : 072 BPM Atrial Rate : 072 BPM P-R Int : 376 ms QRS Dur : 108 ms QT Int : 444 ms P-R-T Axes : 075 -52 121 degrees QTc Int : 486 ms Sinus rhythm with 1st degree A-V block with frequent Premature ventricular complexes Left anterior fascicular block Left ventricular hypertrophy with repolarization abnormality ( R in aVL , Aleksandr product ) Prolonged QT Abnormal ECG When compared with ECG of 01-FEB-2024 17:46, slower rate; PVCs present. Referred By: Andres Miranda Electronically Signed By:STORM ISIDRO
[2024-02-02] MEDS: Magnesium Oxide 400 MG TABLET PO ×2 (10:20→17:52)
[2024-02-02] MEDS: allopurinoL 100 MG TABLET PO ×2 (10:20→20:40)
[2024-02-02] MEDS: Carbidopa/Levodopa 25/100 TABLET 1.5 TAB PO ×2 (10:20→17:52)
[2024-02-02] MEDS: Glycopyrrolate 1 MG TABLET PO ×2 (10:20→20:41)
[2024-02-02] MEDS: Aspirin Enteric Coated 81 MG TABLET.DR PO (10:20)
[2024-02-02] MEDS: 0.9 % Sodium Chloride Flush 3 ML SYRINGE IVFLUSH ×3 (10:21→23:56)
[2024-02-02] MEDS: Silver Sulfadiazine 1 % Cream 20 GM TUBE 1 APPL TOPICAL (11:01)
--- NOTE | 2024-02-02 11:38 | P.PNIM_ITS ---
Subjective Subjective Date of Service: 02/02/24 Interval History: orthostasis Review of Systems seems orthostasis this morning,not new symptoms sittin and eating, has 1 bm no other c/o. Physical Exam 2 Vital Signs: Vital Signs: Last Vital Signs Temp 98.0 F 02/02/24 10:52 Pulse 76 02/02/24 10:52 Resp 20 02/02/24 10:52 BP 147/68 H 02/02/24 10:52 Pulse Ox 98 02/02/24 10:52 O2 Del Method Room Air 02/02/24 10:52 BMI result Body Mass Index 25.4 Appearance: Alert.? Oriented X3.? Head/face: Left eye swollen with significant surrounding ecchymosis. Had wrapped in clean bandage. cvs: rrr, [id number] . res: clear to auscultation ,no rhonchii or wheezing abd: no rebound or guarding ,nt, bs present. ext pulses present , no cyanosis . neuro: axo3 , nonfocal. Objective Data Active Medications Acetaminophen (Acetaminophen 325 Mg Tablet) 650 mg PO Q6H PRN PRN Reason: Pain, Mild (Pain Scale 1-3) Allopurinol (Allopurinol 100 Mg Tablet) 100 mg PO BID ON LICENSE OF [facility] Last Admin: 02/02/24 10:20 Dose: 100 mg Documented By: ZEINA Aspirin (Aspirin Enteric Coated 81 Mg Tablet.) 81 mg PO DAILY ON LICENSE OF [facility] Last Admin: 02/02/24 10:20 Dose: 81 mg Documented By: ZEINA Atorvastatin Calcium (Atorvastatin Calcium 80 Mg Tablet) 80 mg PO BEDTIME ON LICENSE OF [facility] Last Admin: 02/01/24 20:57 Dose: 80 mg Documented By: PEBBLES Benzonatate (Benzonatate 100 Mg Capsule) 100 mg PO TID PRN PRN Reason: Cough Carbidopa/Levodopa (Carbidopa/Levodopa 25/100 Tablet) 1.5 tab PO BID@0900,1800 ON LICENSE OF [facility] Last Admin: 02/02/24 10:20 Dose: 1.5 tab Documented By: ZEINA Carbidopa/Levodopa (Carbidopa/Levodopa 25/100 Tablet) 1 tab PO BID@1200,2100 ON LICENSE OF [facility] Last Admin: 02/01/24 20:57 Dose: 1 tab Documented By: PEBBLES Docusate Sodium (Docusate Sodium 100 Mg Capsule) 100 mg PO DAILY PRN PRN Reason: Constipation Enoxaparin Sodium (Enoxaparin Sodium 40 Mg/0.4 Ml Syringe) 40 mg SUBCUT Q24H ON LICENSE OF [facility] Last Admin: 02/01/24 17:25 Dose: 40 mg Documented By: OPAL Glycopyrrolate (Glycopyrrolate 1 Mg Tablet) 1 mg PO BID ON LICENSE OF [facility] Last Admin: 02/02/24 10:20 Dose: 1 mg Documented By: ZEINA Magnesium Oxide (Magnesium Oxide 400 Mg Tablet) 400 mg PO DAILY ON LICENSE OF [facility] Last Admin: 02/02/24 10:20 Dose: 400 mg Documented By: ZEINA Melatonin (Melatonin 3 Mg Tablet) 6 mg PO BEDTIME PRN PRN Reason: Insomnia Midodrine (Midodrine Hcl 5 Mg Tablet) 5 mg PO TID@0600,1200,1800 ON LICENSE OF [facility] Last Admin: 02/02/24 06:22 Dose: Not Given Documented By: PEBBLES Non-Admin Reason: Elevated Blood Pressure Ondansetron HCl (Ondansetron Hcl 4 Mg/2 Ml Vial) 4 mg IVPUSH Q8H PRN PRN Reason: Nausea and Vomiting Silver Sulfadiazine (Silver Sulfadiazine 1 % Cream 20 Gm Tube) 1 appl TOPICAL BID ON LICENSE OF [facility] Last Admin: 02/02/24 11:01 Dose: 1 appl Documented By: ZEINA Sodium Chloride (0.9 % Sodium Chloride Flush 3 Ml Syringe) 3 ml IVFLUSH QSHIFT ON LICENSE OF [facility] Last Admin: 02/02/24 10:21 Dose: 3 ml Documented By: ZEINA Labs 02/01/24 07:58 02/01/24 07:58 Labs: Laboratory Results - last 24 hr 02/01/24 11:34 Troponin I High Sens 12.8 Assessment and Plan (1) Laceration of head: Status: Acute (2) Fall: Status: Acute Assessment and Plan: 78-year-old male with a PMH significant for Parkinson's disease, recently diagnosed paroxysmal AFib, orthostatic hypotension,?CAD, and aortic valve replacement who presents to the ED for evaluation of fall at home. Pt was treated with IVF. Pt will be admitted to the hospital under observation for treatment and further evaluation of symptomatic orthostatic hypotension. Orthostatic hypotension Orthostatics positive x2 in the ED despite patient getting IVF in the ED Patient was apparently symptomatic with lightheadedness and dizziness with standing Will repeat orthostatics Q shift Continue midodrine Bradycardia: EKG showed first-degree block Currently asymptomatic Added TSH, pacer at bedside, atropine p.r.n. Cardiology evaluation Generalized weakness/frequent falls at home Pt with fall at home on Sunday needing sutures to forehead Pt with fall this morning needing additional sutures to forehead PT evaluation Parkinson's disorder Continue carbidopa levodopa CAD/HLD Continue aspirin, statin Gout Continue allopurinol DNR/DNI DVT Prophylaxis: Lovenox ongoing hospitalisation need for treatment and further evaluation orthostatic hypotension, bradycardia-needs workup and tele monitoring as well as Cardiology evaluation, also PT evaluation. Above was discussed with the patient and his at bedside with staff present: Patient wishes to be full code. Quality Stroke Does the patient have a stroke diagnosis?: No VTE Prior VTE?: No VTE Risk Level:: Medical - moderate - high VTE Device Contraindication: Treatment Not Indicated VTE Drug Contraindication: N/A - Med Ordered
[2024-02-02] MEDS: Carbidopa/Levodopa 25/100 TABLET 1 TAB PO ×2 (13:05→20:40)
[2024-02-02] MEDS: Albumin Human 25 % 100 ML IV ×2 (13:05→17:52)
[2024-02-02] MEDS: Potassium Chloride ER 20 MEQ TAB.ER.PRT PO (13:05)
--- NOTE | 2024-02-02 16:29 | MHC.CM.PN ---
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
[2024-02-02] MEDS: Enoxaparin Sodium 40 MG/0.4 ML SYRINGE SUBCUT (17:52)
[2024-02-02] MEDS: Atorvastatin Calcium 80 MG TABLET PO (20:40)
[2024-02-03] VITALS (8 sets, daily range): BP systolic 82–168; BP diastolic 39–77; PULSE 68–86; RESP 16–20; TEMP 35.9–37.3; O2SAT 96–100
[2024-02-03] MEDS: Albumin Human 25 % 100 ML IV ×2 (02:15→08:09)
[2024-02-03] MEDS: allopurinoL 100 MG TABLET PO ×2 (08:08→23:01)
[2024-02-03] MEDS: Glycopyrrolate 1 MG TABLET PO ×2 (08:08→22:59)
[2024-02-03] MEDS: Magnesium Oxide 400 MG TABLET PO ×2 (08:08→17:06)
[2024-02-03] MEDS: Aspirin Enteric Coated 81 MG TABLET.DR PO (08:08)
[2024-02-03] MEDS: Acetaminophen 325 MG TABLET 650 MG PO (08:08)
[2024-02-03] MEDS: Carbidopa/Levodopa 25/100 TABLET 1.5 TAB PO ×2 (08:09→17:06)
[2024-02-03] MEDS: Silver Sulfadiazine 1 % Cream 20 GM TUBE 1 APPL TOPICAL (08:09)
[2024-02-03] MEDS: 0.9 % Sodium Chloride Flush 3 ML SYRINGE IVFLUSH ×3 (08:09→23:42)
--- NOTE | 2024-02-03 09:51 | PM.CNCAR ---
History of Present Illness History of Present Illness Date of Service: 02/03/24 Chief complaint: Orthostatic hypotension Narrative: This is a cardiology consultation regarding heart block on telemetry. Patient himself seems extremely weak and can barely talk. He states he is doing okay. Current admissions because of orthostatic symptoms and general frailty. While on telemetry, he was noticed to have Mobitz type 1 Wenckebach type heart block and then areas of 2-1 heart block and hence we are consulted. However, it seems that during those episodes he did not really have any symptoms. But when they tried to do orthostatics there was significant drop. Otherwise, patient extremely weak and frail. No other cardiac symptoms at this time. From cardiac, there is history of CABG as well as bioprosthetic aortic valve. Otherwise, Parkinson's disease. According to office documentation, patient was so weak that they could barely go to any doctors visits and they in fact had canceled all further appointments with us. Review of Systems Review of Systems: Yes all other systems are reviewed and are negative Constitutional: Constitutional: Reports as per HPI and Reports no additional constitutional complaints Eyes: Eyes: Reports as per HPI and Denies no additional eye complaints ENT: Denies system reviewed and no additional complaints, except as documented and Reports as per HPI Cardiovascular: Cardiovascular: Reports as per HPI, Reports no additional cardiovascular complaints, Denies acrocyanosis, Denies cool extremities, Denies chest pain, Denies leg edema, Reports lightheadedness, Denies palpitations and Denies dyspnea Respiratory: Respiratory: Reports as per HPI, Denies no additional respiratory complaints and Denies dyspnea Gastrointestinal: Gastrointestinal: Reports as per HPI and Denies no additional gastrointestinal complaints Genitourinary: Genitourinary: Reports no additional male genitourinary complaints and Reports as per HPI Musculoskeletal: Musculoskeletal: Reports no additional musculoskeletal complaints and Reports as per HPI Integumentary/Breasts: Skin/Breast: Reports system reviewed and no additional complaints, except as docu Neurologic: Reports system reviewed and no additional complaints, except as documented and Reports as per HPI Psychiatric: Psychiatric: Reports no additional psychiatric complaints and Reports as per HPI Endocrine: Endocrine: Reports no additional endocrine complaints, Reports as per HPI and Denies palpitations Hematologic/Lymphatic: Hematologic/Lymphatic: Reports no additional hematologic/lymphatic complaints and Reports as per HPI Allergic/Immunologic: Allergic/Immunologic: Reports no additional allergic/immunologic complaints and Reports as per HPI [facility] Past Medical History Medical History Frequent falls Dyspnea on exertion Abnormal CT scan, chest Shortness of breath on exertion Heel ulcer Ulcer of sacral region, stage 1 Parkinson disease Alcoholic liver disease Orthostatic hypotension PAF (paroxysmal atrial fibrillation) Atherosclerotic cardiovascular disease Family History Family History Father CVD (cardiovascular disease) Mother No problems noted. Surgical History Surgical History S/P hip replacement Status post aortic valve replacement with bioprosthetic valve History of coronary artery bypass graft x 3 (~10/2019) Social History Social History Unable to assess alcohol history related to: Unknown Alcohol intake: former Patient Tobacco Use Status: Former Tobacco user Smoked in Last 30 Days: No Use of substances other than those prescribed or required for medical reasons: No Currently Displaying Signs/Symptoms of Drug Intoxication Withdrawal: No Advance Directives: Yes Advance Directives on File: Yes Advance Directives Date on File: 03/20/23 Do you have a plan to hurt others: No Plan Nutrition Risks: No Nutritional Risk Meds Allergies Allergy/AdvReac Type Severity Reaction Status Date / Time No Known Allergies Allergy Verified 02/01/24 05:16 Active Medications: Current Medications Acetaminophen (Acetaminophen 325 Mg Tablet) 650 mg PO Q6H PRN PRN Reason: Pain, Mild (Pain Scale 1-3) Last Admin: 02/03/24 08:08 Dose: 650 mg Allopurinol (Allopurinol 100 Mg Tablet) 100 mg PO BID [facility] Last Admin: 02/03/24 08:08 Dose: 100 mg Aspirin (Aspirin Enteric Coated 81 Mg Tablet.Dr) 81 mg PO DAILY [facility] Last Admin: 02/03/24 08:08 Dose: 81 mg Atorvastatin Calcium (Atorvastatin Calcium 80 Mg Tablet) 80 mg PO BEDTIME [facility] Last Admin: 02/02/24 20:40 Dose: 80 mg Atropine Sulfate (Atropine Sulfate 1 Mg/10 Ml Syringe) 1 mg IVPUSH ONCE PRN PRN Reason: bradycardia Benzonatate (Benzonatate 100 Mg Capsule) 100 mg PO TID PRN PRN Reason: Cough Carbidopa/Levodopa (Carbidopa/Levodopa 25/100 Tablet) 1.5 tab PO BID@0900,1800 [facility] Last Admin: 02/03/24 08:09 Dose: 1.5 tab Carbidopa/Levodopa (Carbidopa/Levodopa 25/100 Tablet) 1 tab PO BID@1200,2100 [facility] Last Admin: 02/02/24 20:40 Dose: 1 tab Docusate Sodium (Docusate Sodium 100 Mg Capsule) 100 mg PO DAILY PRN PRN Reason: Constipation Enoxaparin Sodium (Enoxaparin Sodium 40 Mg/0.4 Ml Syringe) 40 mg SUBCUT Q24H [facility] Last Admin: 02/02/24 17:52 Dose: 40 mg Glycopyrrolate (Glycopyrrolate 1 Mg Tablet) 1 mg PO BID [facility] Last Admin: 02/03/24 08:08 Dose: 1 mg Magnesium Oxide (Magnesium Oxide 400 Mg Tablet) 400 mg PO BIDPC [facility] Last Admin: 02/03/24 08:08 Dose: 400 mg Melatonin (Melatonin 3 Mg Tablet) 6 mg PO BEDTIME PRN PRN Reason: Insomnia Ondansetron HCl (Ondansetron Hcl 4 Mg/2 Ml Vial) 4 mg IVPUSH Q8H PRN PRN Reason: Nausea and Vomiting Silver Sulfadiazine (Silver Sulfadiazine 1 % Cream 20 Gm Tube) 1 appl TOPICAL BID [facility] Last Admin: 02/03/24 08:09 Dose: 1 appl Sodium Chloride (0.9 % Sodium Chloride Flush 3 Ml Syringe) 3 ml IVFLUSH QSHIFT [facility] Last Admin: 02/03/24 08:09 Dose: 3 ml Home Medications ?Medication ?Instructions ?Recorded ?Confirmed ?Last Taken ?Type acetaminophen 500 mg tablet 1,000 mg PO BID Pain 09/15/20 02/01/24 01/31/24 History (Tylenol Extra Strength) aspirin 81 mg tablet,delayed 81 mg PO DAILY 09/15/20 02/01/24 01/31/24 History release allopurinol 100 mg tablet 100 mg PO BID 07/18/21 02/01/24 01/31/24 History glycopyrrolate 1 mg tablet 1 mg PO BID excessive drooling. 05/07/23 02/01/24 01/31/24 History midodrine 2.5 mg tablet 2.5 mg PO TID@0600,1200,1800 05/07/23 02/01/24 01/31/24 History magnesium oxide 400 mg PO DAILY 01/28/24 02/01/24 01/31/24 History carbidopa 25 mg-levodopa 100 mg 1 tab PO BID@1200,2100 02/01/24 02/01/24 01/31/24 History tablet carbidopa 25 mg-levodopa 100 mg 1.5 tab PO BID@0900,1800 02/01/24 02/01/24 01/31/24 History tablet potassium chloride 10 mEq 10 meq PO BID 02/01/24 Unknown History capsule,extended release rosuvastatin 20 mg tablet 20 mg PO BEDTIME 02/01/24 02/01/24 01/31/24 History silver sulfadiazine 1 % topical 1 appl topical BID ulcer 02/01/24 02/01/24 01/31/24 History cream Physical Exam Vital Signs: Vital Signs: Last Vital Signs Temp 96.7 F L 02/03/24 07:56 Pulse 80 02/03/24 09:24 Resp 16 02/03/24 07:56 BP 82/39 L 02/03/24 09:24 Pulse Ox 99 02/03/24 07:56 O2 Del Method Room Air 02/03/24 07:56 BMI result Body Mass Index 25.4 Objective Labs and Meds 02/01/24 07:58 02/01/24 07:58 ECG Interpretation: In the initial EKG, probably underlying sinus rhythm. 93/min. In the repeat EKG, there is a question of sinus tachycardia but difficult to say what the underlying rhythm is. Possible sinus with long MO. PVCs. In the most recent EKG, underlying rhythm is sinus at 72/Min; long MO at 376 milliseconds. PVCs. Left ventricular hypertrophy. Assessment and Plan (1) Mobitz type 1 second degree atrioventricular block: Status: Acute (2) First degree heart block: Status: Acute (3) Orthostatic hypotension: Status: Acute (4) Atherosclerotic cardiovascular disease: Status: Acute (5) Status post aortic valve replacement with bioprosthetic valve: Status: Acute (6) Heart block atrioventricular: Status: Acute (7) Fall: Status: Acute (8) Frailty: Status: Acute Plan On evaluation telemetry, there is underlying first-degree heart block. There are episodes of Mobitz type 1 second-degree Wenckebach type heart block. Some areas look like 2:1. During the time of these episodes, he did not really have any syncopal episodes. However, on orthostatic check, there is a very significant drop and hence most likely the reason for his weakness and falls. Considering overall advanced Parkinson's, frailty, very poor ambulation, recurrent falls, failure to thrive, do not recommend pacemaker in this setting. I discussed this with his whom I have known for a long time. Will need ideally snf as patient's can not take care of him by herself. With regard to the orthostatic hypotension, could be all from Parkinson's as well as the medications used to treat that. He seems to be already on midodrine. May have to just stay in bed and avoid any ambulation as there is a high risk of falling. Also suggest revisiting code status. Procedures Date of Service Date of Service: 02/03/24
[2024-02-03] MEDS: Carbidopa/Levodopa 25/100 TABLET 1 TAB PO ×2 (12:39→23:04)
--- NOTE | 2024-02-03 15:00 | HO.PM.IMPN ---
Subjective Subjective Date of Service: 02/03/24 Interval History: bradycardia Review of Systems seems orthostasis this morning,not new symptoms hr goes intermittentlyin high 30 to 40's ( especially when sleeping) no new symptoms Physical Exam Vital Signs: Vital Signs: Last Vital Signs Temp 99.1 F 02/03/24 10:56 Pulse 68 02/03/24 10:56 Resp 20 02/03/24 10:56 BP 113/53 L 02/03/24 10:56 Pulse Ox 100 02/03/24 10:56 O2 Del Method Room Air 02/03/24 10:56 BMI result Body Mass Index 25.4 Appearance: Alert.? Oriented X3.? Head/face: Left eye swollen with significant surrounding ecchymosis. Had wrapped in clean bandage. cvs: rrr, [id number] . res: clear to auscultation ,no rhonchii or wheezing abd: no rebound or guarding ,nt, bs present. ext pulses present , no cyanosis . neuro: axo3 , nonfocal. Objective Data Active Medications Acetaminophen (Acetaminophen 325 Mg Tablet) 650 mg PO Q6H PRN PRN Reason: Pain, Mild (Pain Scale 1-3) Last Admin: 02/03/24 08:08 Dose: 650 mg Documented By: ZEINA Allopurinol (Allopurinol 100 Mg Tablet) 100 mg PO BID [facility] Last Admin: 02/03/24 08:08 Dose: 100 mg Documented By: ZEINA Aspirin (Aspirin Enteric Coated 81 Mg Tablet.) 81 mg PO DAILY [facility] Last Admin: 02/03/24 08:08 Dose: 81 mg Documented By: ZEINA Atorvastatin Calcium (Atorvastatin Calcium 80 Mg Tablet) 80 mg PO BEDTIME [facility] Last Admin: 02/02/24 20:40 Dose: 80 mg Documented By: ALCIDES Atropine Sulfate (Atropine Sulfate 1 Mg/10 Ml Syringe) 1 mg IVPUSH ONCE PRN PRN Reason: bradycardia Benzonatate (Benzonatate 100 Mg Capsule) 100 mg PO TID PRN PRN Reason: Cough Carbidopa/Levodopa (Carbidopa/Levodopa 25/100 Tablet) 1.5 tab PO BID@0900,1800 [facility] Last Admin: 02/03/24 08:09 Dose: 1.5 tab Documented By: ZEINA Carbidopa/Levodopa (Carbidopa/Levodopa 25/100 Tablet) 1 tab PO BID@1200,2100 [facility] Last Admin: 02/03/24 12:39 Dose: 1 tab Documented By: ZEINA Docusate Sodium (Docusate Sodium 100 Mg Capsule) 100 mg PO DAILY PRN PRN Reason: Constipation Enoxaparin Sodium (Enoxaparin Sodium 40 Mg/0.4 Ml Syringe) 40 mg SUBCUT Q24H [facility] Last Admin: 02/02/24 17:52 Dose: 40 mg Documented By: ZEINA Glycopyrrolate (Glycopyrrolate 1 Mg Tablet) 1 mg PO BID [facility] Last Admin: 02/03/24 08:08 Dose: 1 mg Documented By: ZEINA Magnesium Oxide (Magnesium Oxide 400 Mg Tablet) 400 mg PO BIDPC [facility] Last Admin: 02/03/24 08:08 Dose: 400 mg Documented By: ZEINA Melatonin (Melatonin 3 Mg Tablet) 6 mg PO BEDTIME PRN PRN Reason: Insomnia Ondansetron HCl (Ondansetron Hcl 4 Mg/2 Ml Vial) 4 mg IVPUSH Q8H PRN PRN Reason: Nausea and Vomiting Silver Sulfadiazine (Silver Sulfadiazine 1 % Cream 20 Gm Tube) 1 appl TOPICAL BID [facility] Last Admin: 02/03/24 08:09 Dose: 1 appl Documented By: ZEINA Sodium Chloride (0.9 % Sodium Chloride Flush 3 Ml Syringe) 3 ml IVFLUSH QSHIFT [facility] Last Admin: 02/03/24 08:09 Dose: 3 ml Documented By: ZEINA Labs 02/01/24 07:58 02/01/24 07:58 Assessment and Plan (1) Laceration of head: Status: Acute (2) Fall: Status: Acute Assessment and Plan: 78-year-old male with a PMH significant for Parkinson's disease, recently diagnosed paroxysmal AFib, orthostatic hypotension,?CAD, and aortic valve replacement who presents to the ED for evaluation of fall at home. Pt was treated with IVF. Pt will be admitted to the hospital under observation for treatment and further evaluation of symptomatic orthostatic hypotension. Orthostatic hypotension Orthostatics positive x2 in the ED despite patient getting IVF in the ED Patient was apparently symptomatic with lightheadedness and dizziness with standing orthostatics Q shift -still on/off ( no symptoms) hold midodrine ( due to bradycardia) continue mech devices,if needed will add ivf. Bradycardia: EKG showed first-degree block Mobitz type 1 second-degree Wenckebach type heart block. Some areas look like 2:1. Currently asymptomatic Added TSH, pacer at bedside, atropine p.r.n. Cardiology evaluation noted -Considering overall advanced Parkinson's, frailty, very poor ambulation, recurrent falls, failure to thrive, do not recommend pacemaker in this setting. Generalized weakness/frequent falls at home Pt with fall at home on Sunday needing sutures to forehead Pt with fall this morning needing additional sutures to forehead PT evaluation Parkinson's disorder Continue carbidopa levodopa CAD/HLD Continue aspirin, statin Gout Continue allopurinol DNR/DNI DVT Prophylaxis: Lovenox ongoing hospitalisation need for treatment and further evaluation orthostatic hypotension, bradycardia-needs workup and tele monitoring as well as Cardiology evaluation, also PT evaluation. Quality Stroke Does the patient have a stroke diagnosis?: No VTE Prior VTE?: No VTE Risk Level:: Medical - moderate - high VTE Device Contraindication: Treatment Not Indicated VTE Drug Contraindication: N/A - Med Ordered
--- NOTE | 2024-02-03 15:14 | P.DS_ITS ---
DS: Providers Provider Date of admission: 02/03/24 13:10 Primary care physician: Nikolay Bruno MD Consults: 02/02/24 12:38 Consult to Cardiology Routine Consulting Provider: [facility] Cardiovascular Services Reason for consultation: bradycardia /orthostaisis Has provider been notified: No DS: Diagnosis Discharge Diagnosis (1) Laceration of head: Status: Acute (2) Fall: Status: Acute Physical Exam Vital Signs: Vital Signs: Last Vital Signs Temp 99.1 F 02/03/24 10:56 Pulse 68 02/03/24 10:56 Resp 20 02/03/24 10:56 BP 113/53 L 02/03/24 10:56 Pulse Ox 100 02/03/24 10:56 O2 Del Method Room Air 02/03/24 10:56 BMI result Body Mass Index 25.4 Discharge Plan Discharge Referrals: Nikolay Bruno MD [Primary Care Provider] - 1 Week Discharge Medications: No Action magnesium oxide 400 mg magnesium Tablet 400 mg PO DAILY silver sulfadiazine 1 % cream 1 appl topical BID potassium chloride 10 mEq capsule, extended release 10 meq PO BID carbidopa-levodopa 25-100 mg tablet 1.5 tab PO BID@0900,1800 carbidopa-levodopa 25-100 mg tablet 1 tab PO BID@1200,2100 rosuvastatin 20 mg tablet 20 mg PO BEDTIME aspirin 81 mg tablet,delayed release (DR/EC) 81 mg PO DAILY acetaminophen [Tylenol Extra Strength] 500 mg tablet 1,000 mg PO BID allopurinol 100 mg tablet 100 mg PO BID midodrine 2.5 mg tablet 2.5 mg PO TID@0600,1200,1800 glycopyrrolate 1 mg tablet 1 mg PO BID Rx Instructions: [facility] 1 tab in am and 1 tab at bedtime Print Language: Faroese
--- NOTE | 2024-02-03 15:16 | W.MHC.ACPN ---
Advanced Care Planning Note Advanced Care Planning Note Time spent (in minutes): 30 Narrative: Patient admitted with a advance Parkinson's, has history of AFib, orthostatic hypotension, CAD, aortic valve replacement history: Patient is on and off bradycardic currently asymptomatic. Also still on and off orthostatic. 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 Considering advance medical condition, frailty, persistent orthostatic hypotension and bradycardia: Goal of care care discussion was done in detail, is still not decided, currently patient is full code, family is coming for further discussion-then they will let us know about code status if any change. time spent 30 min Problems Discussed (1) Laceration of head: (2) Fall:
[2024-02-03 16:22] LABS: Thyroid Stimulating Hormone 2.64 uIU/mL (0.32-4.0)
[2024-02-03] MEDS: Enoxaparin Sodium 40 MG/0.4 ML SYRINGE SUBCUT (17:06)
[2024-02-03] MEDS: Midodrine HCl 2.5 MG TABLET PO (18:17)
[2024-02-03] MEDS: Atorvastatin Calcium 80 MG TABLET PO (22:59)
[2024-02-04] VITALS (10 sets, daily range): BP systolic 104–172; BP diastolic 54–90; PULSE 69–90; RESP 14–20; TEMP 36.2–37.2; O2SAT 95–98; BMI 25.4
[2024-02-04] MEDS: Carbidopa/Levodopa 25/100 TABLET 1.5 TAB PO ×2 (08:57→17:30)
[2024-02-04] MEDS: Aspirin Enteric Coated 81 MG TABLET.DR PO (08:57)
[2024-02-04] MEDS: Glycopyrrolate 1 MG TABLET PO ×2 (08:57→20:34)
[2024-02-04] MEDS: Magnesium Oxide 400 MG TABLET PO ×2 (08:58→17:31)
[2024-02-04] MEDS: 0.9 % Sodium Chloride Flush 3 ML SYRINGE IVFLUSH ×3 (08:59→20:35)
[2024-02-04] MEDS: Silver Sulfadiazine 1 % Cream 20 GM TUBE 1 APPL TOPICAL ×2 (08:59→21:49)
[2024-02-04] MEDS: allopurinoL 100 MG TABLET PO ×2 (08:59→20:34)
--- NOTE | 2024-02-04 10:21 | MHC.CM.PN ---
Patient was changed from OBSERVATION to INPATIENT yesterday; CM met with Patient and his at bedside and addressed IMM with them (original given to and a copy placed on the chart).
--- NOTE | 2024-02-04 10:40 | PC.NURSE ---
Witnessed change of code status discussion. Patient's at bedside, provider discussed options with patient and family, questions/concerns addressed. Patient's decision DNR and DNI recorded, form signed by provider and patient's territory representative. Form placed in patient's chart, copy given to patient.
--- NOTE | 2024-02-04 12:43 | MHC.CM.PN ---
PT is recommending [facility] and [facility] first choice (under [facility] benefit/not [facility]); CM will follow.
[2024-02-04] MEDS: Carbidopa/Levodopa 25/100 TABLET 1 TAB PO ×2 (12:58→20:34)
--- NOTE | 2024-02-04 14:31 | HO.PM.IMPN ---
Subjective Subjective Date of Service: 02/04/24 Interval History: sam cardia orhostasis Review of Systems no new symptoms Physical Exam Vital Signs: Vital Signs: Last Vital Signs Temp 97.7 F 02/04/24 11:52 Pulse 84 02/04/24 11:52 Resp 20 02/04/24 11:52 BP 122/58 L 02/04/24 11:52 Pulse Ox 95 02/04/24 11:52 O2 Del Method Room Air 02/04/24 11:52 BMI result Body Mass Index 25.4 Objective Data Active Medications Acetaminophen (Acetaminophen 325 Mg Tablet) 650 mg PO Q6H PRN PRN Reason: Pain, Mild (Pain Scale 1-3) Last Admin: 02/03/24 08:08 Dose: 650 mg Documented By: ZEINA Allopurinol (Allopurinol 100 Mg Tablet) 100 mg PO BID [facility] Last Admin: 02/04/24 08:59 Dose: 100 mg Documented By: ALYCIA Aspirin (Aspirin Enteric Coated 81 Mg Tablet.) 81 mg PO DAILY [facility] Last Admin: 02/04/24 08:57 Dose: 81 mg Documented By: ALYCIA Atorvastatin Calcium (Atorvastatin Calcium 80 Mg Tablet) 80 mg PO BEDTIME [facility] Last Admin: 02/03/24 22:59 Dose: 80 mg Documented By: ANNIE Atropine Sulfate (Atropine Sulfate 1 Mg/10 Ml Syringe) 1 mg IVPUSH ONCE PRN PRN Reason: bradycardia Benzonatate (Benzonatate 100 Mg Capsule) 100 mg PO TID PRN PRN Reason: Cough Carbidopa/Levodopa (Carbidopa/Levodopa 25/100 Tablet) 1.5 tab PO BID@0900,1800 [facility] Last Admin: 02/04/24 08:57 Dose: 1.5 tab Documented By: ALYCIA Carbidopa/Levodopa (Carbidopa/Levodopa 25/100 Tablet) 1 tab PO BID@1200,2100 [facility] Last Admin: 02/04/24 12:58 Dose: 1 tab Documented By: ALYCIA Docusate Sodium (Docusate Sodium 100 Mg Capsule) 100 mg PO DAILY PRN PRN Reason: Constipation Enoxaparin Sodium (Enoxaparin Sodium 40 Mg/0.4 Ml Syringe) 40 mg SUBCUT Q24H [facility] Last Admin: 02/03/24 17:06 Dose: 40 mg Documented By: ZEINA Glycopyrrolate (Glycopyrrolate 1 Mg Tablet) 1 mg PO BID [facility] Last Admin: 02/04/24 08:57 Dose: 1 mg Documented By: ALYCIA Magnesium Oxide (Magnesium Oxide 400 Mg Tablet) 400 mg PO BIDPC [facility] Last Admin: 02/04/24 08:58 Dose: 400 mg Documented By: ALYCIA Melatonin (Melatonin 3 Mg Tablet) 6 mg PO BEDTIME PRN PRN Reason: Insomnia Midodrine (Midodrine Hcl 2.5 Mg Tablet) 2.5 mg PO BID@0630,1630 [facility] Ondansetron HCl (Ondansetron Hcl 4 Mg/2 Ml Vial) 4 mg IVPUSH Q8H PRN PRN Reason: Nausea and Vomiting Silver Sulfadiazine (Silver Sulfadiazine 1 % Cream 20 Gm Tube) 1 appl TOPICAL BID [facility] Last Admin: 02/04/24 08:59 Dose: 1 appl Documented By: ALYCIA Sodium Chloride (0.9 % Sodium Chloride Flush 3 Ml Syringe) 3 ml IVFLUSH QSHIFT [facility] Last Admin: 02/04/24 08:59 Dose: 3 ml Documented By: ALYCIA Labs 02/01/24 07:58 02/01/24 07:58 Labs: Laboratory Results - last 24 hr 02/03/24 15:35 TSH 2.64 Assessment and Plan (1) Frailty: Status: Acute (2) Mobitz type 1 second degree atrioventricular block: Status: Acute Plan 78-year-old male with a PMH significant for Parkinson's disease, recently diagnosed paroxysmal AFib, orthostatic hypotension,?CAD, and aortic valve replacement who presents to the ED for evaluation of fall at home. Pt was treated with IVF. Pt will be admitted to the hospital under observation for treatment and further evaluation of symptomatic orthostatic hypotension. Orthostatic hypotension orthostatics Q shift -still on/off ( no symptoms) no new symptoms d/w cardio Dr sanchez -continue midodrine , mech devices,if needed will add ivf. Bradycardia: EKG showed first-degree block Mobitz type 1 second-degree Wenckebach type heart block. Some areas look like 2:1. Currently asymptomatic normal TSH, pacer at bedside, atropine p.r.n. Cardiology evaluation noted -Considering overall advanced Parkinson's, frailty, very poor ambulation, recurrent falls, failure to thrive, do not recommend pacemaker in this setting. Generalized weakness/frequent falls at home Pt with fall at home on Sunday needing sutures to forehead Pt with fall this morning needing additional sutures to forehead PT evaluation Parkinson's disorder Continue carbidopa levodopa CAD/HLD Continue aspirin, statin Gout Continue allopurinol d/w patient and his -DNR/DNI. Pt - rec rehab. DVT Prophylaxis: Lovenox ongoing hospitalisation -awaiting rehab placement. Quality Stroke Does the patient have a stroke diagnosis?: No VTE Prior VTE?: No VTE Risk Level:: Medical - moderate - high VTE Device Contraindication: Treatment Not Indicated VTE Drug Contraindication: N/A - Med Ordered
--- NOTE | 2024-02-04 14:34 | P.CDIM_ITS ---
PROVIDER RESPONSE TEXT: To clarify, the appropriate diagnosis supported by the clinical indicators: Pressure injury QUERY TEXT: PHYSICIAN'S DOCUMENTATION REQUEST Date of Query: 02/04/2024 07:37 AM EDT Patient Name: Marlon Guy Admit Date: 02/03/2024 Dear Andres Miranda, A review of the medical record indicates additional documentation may be needed. Please review below and update the documentation accordingly. Clinical Indicators: Wound care nursing notes 02/01 - Stage 2 pressure injury buttock Dusky red, purple Prescription ointment applied. Foam dressing S/P falling Based on the above, could you please provide further information regarding the ulcer/wound/injury: Pressure injury Traumatic wound Other (explain) Clinically unable to determine (explain) Thank you, Farnaz Fleming, CCS, CDIS Use of terms such as suspected, likely, concern for, or probable (associated with a specific diagnosi s that is being evaluated, monitored, or treated as if it exists) are acceptable and can be coded in the inpatient se tting, when documented at the time of discharge. Please use your independent medical judgment in providing your response. THIS QUERY IS PART OF THE PERMANENT MEDICAL RECORD
[2024-02-04] MEDS: Enoxaparin Sodium 40 MG/0.4 ML SYRINGE SUBCUT (17:33)
[2024-02-04] MEDS: Midodrine HCl 2.5 MG TABLET PO (17:33)
[2024-02-04] MEDS: Atorvastatin Calcium 80 MG TABLET PO (20:34)
[2024-02-05] VITALS (11 sets, daily range): BP systolic 88–158; BP diastolic 34–72; PULSE 59–78; RESP 16–20; TEMP 36.6–37.2; O2SAT 95–98
[2024-02-05] MEDS: Midodrine HCl 2.5 MG TABLET PO ×2 (06:11→17:19)
[2024-02-05] MEDS: Glycopyrrolate 1 MG TABLET PO (08:35)
[2024-02-05] MEDS: Aspirin Enteric Coated 81 MG TABLET.DR PO (08:35)
[2024-02-05] MEDS: allopurinoL 100 MG TABLET PO (08:35)
[2024-02-05] MEDS: Carbidopa/Levodopa 25/100 TABLET 1.5 TAB PO ×2 (08:35→17:19)
[2024-02-05] MEDS: Acetaminophen 325 MG TABLET 650 MG PO (08:35)
[2024-02-05] MEDS: Magnesium Oxide 400 MG TABLET PO ×2 (08:35→17:19)
[2024-02-05] MEDS: 0.9 % Sodium Chloride Flush 3 ML SYRINGE IVFLUSH ×2 (08:36→17:20)
[2024-02-05] MEDS: Silver Sulfadiazine 1 % Cream 20 GM TUBE 1 APPL TOPICAL (12:14)
[2024-02-05] MEDS: Carbidopa/Levodopa 25/100 TABLET 1 TAB PO (12:45)
--- NOTE | 2024-02-05 13:33 | MHC.CM.PN ---
CM met with Patient and /HCP/Julia at bedside to discuss dc planning. [facility]. CM has reached out to other SNFs that were referred to and await word on their bed availability. made aware and CM will follow.
--- NOTE | 2024-02-05 14:05 | MHC.CM.PN ---
's cell # is [phone].
--- NOTE | 2024-02-05 15:10 | HO.WOUND ---
Wound Consult: Initial 78yr old? admitted to [facility] [place] on 02/03/24 13:10 - See progress notes and H&P for detailed history.? Wound consult placed for Back wound POA.? Patient agreeable to assessment and photo documentation.? Arrival to bedside adamaris was present and requested several other wound assessments detailed below: Left upper back abrasion noted - small 0.2cm 0.2cm x 0.1 with dried crusted drainage noted - no s/s of infection at the time. Recommend foam dressing to allow for autolytic debridement and moist wound healing. Left Knee - Abrasion s/p fall at home - see charting for detailed measurements - partial thickness tissue loss with red moist wound bed - recommend xeroform and foam dressing to allow for autolytic debridement and moist wound healing. Left Forearm - resolving skin tear - cleansed no s/s of infection noted - flap well approximated and already appears to be readherring to wound bed - xeroform and gauze dressing to allow for autolytic debridement and moist wound healing. Buttock / Intergluteal - MASD red pink blanchable tissue noted with evidence of incontinence - remains blanchable and scattered areas of partial thickness tissue loss. Barrier cream to protect from moisture and friction. Forehead and left eyebrow - laceration with some sutures noted. Left eye brow with sutures inplace - recommend cleanse with NS and apply light layer of vaseline to loosen dried drainage and allow for moist wound healing. The forehead has two separate areas of suture with a open central area - red pink moist partial thickness tissue loss - recommend xeroform and foam dressing to allow for autolytic debridement and moist wound healing. Right Heel - Intact red pink nonblanchable tissue - POA - foam dressing to protect from pressure and friction Face Right heel Coccyx Etiology: Unstageable Pressure Injury ?Present on Admission Measurements: see charting for detailed measurements Wound Bed: adherent yellow slough Drainage / Odor: dennison yellow drainage on dressing no odor noted Edges: ? unattached - depth appreciated - undermining appreciated Glo wound: ? MASD - No Induration, Fluctuance or Warmth noted Pain: tenderness reported Goals of Treatment: ? Durafiber for moisture management and autolytic debridement Recommendations: 1. Turn and Reposition every 2 hours and as needed for patient comfort.? Use pillows or wedges to support off loading positions. 2. Off Load all bony prominences with use of pillows and heel boots if needed.? Apply Preventative foams where needed. ? 3. Monitor for incontinence and moisture control, use barrier creams when needed for prevention and treatment. 4. Provide adequate and supplemental nutrition.? 5. Order or Continue low air loss mattress. 6. When applicable maintain blood glucose levels per Providers order. 7. Left Forearm - Cleanse with NS moist gauze pat dry. Apply skin prep to periwound cover with xeroform and gauze wrap. change daily. 8. Left Knee, left upper back and Forehead - Cleanse with NS moist gauze pat dry. Apply skin prep to periwound cover with xeroform and foam dressing. change daily. 9.Right Heel - Off load pressure with pillow from surface of bed and or recliner. Apply foam dressing peel back and assess Q shift and Change every 3 days. 10. Coccyx - Cleanse and irrigate with NS, apply skin prep to periwound. Lightly pack coccyx wound with durafiber AG cover with foam dressing. Change every other day. 11. Buttocks - Apply barrier cream to protect from moisture and friciton twice a day and PRN. Re-consult wound care Nurse for wound deterioration or wound changes.
--- NOTE | 2024-02-05 15:12 | HO.PM.IMPN ---
Subjective Subjective Date of Service: 02/05/24 Interval History: f/u on orthostatic hypotension, fall Overall feels better, awaiting rehab placement Physical Exam Vital Signs: Vital Signs: Last Vital Signs Temp 97.9 F 02/05/24 11:42 Pulse 59 02/05/24 11:42 Resp 16 02/05/24 11:42 BP 126/57 L 02/05/24 11:42 Pulse Ox 96 02/05/24 11:42 O2 Del Method Room Air 02/05/24 11:42 BMI result Body Mass Index 25.4 General: AO X 3, no acute distress Resp: CTA bilateral CVS: S1,S2,RRR GI: +BS, NT, no distention Skin: No rash Neuro: motor grossly intact Psych: appropriate affect Objective Data Active Medications Acetaminophen (Acetaminophen 325 Mg Tablet) 650 mg PO Q6H PRN PRN Reason: Pain, Mild (Pain Scale 1-3) Last Admin: 02/05/24 08:35 Dose: 650 mg Documented By: HEIDI Allopurinol (Allopurinol 100 Mg Tablet) 100 mg PO BID [facility] Last Admin: 02/05/24 08:35 Dose: 100 mg Documented By: HEIDI Aspirin (Aspirin Enteric Coated 81 Mg Tablet.) 81 mg PO DAILY [facility] Last Admin: 02/05/24 08:35 Dose: 81 mg Documented By: HEIDI Atorvastatin Calcium (Atorvastatin Calcium 80 Mg Tablet) 80 mg PO BEDTIME [facility] Last Admin: 02/04/24 20:34 Dose: 80 mg Documented By: PEBBLES Atropine Sulfate (Atropine Sulfate 1 Mg/10 Ml Syringe) 1 mg IVPUSH ONCE PRN PRN Reason: bradycardia Benzonatate (Benzonatate 100 Mg Capsule) 100 mg PO TID PRN PRN Reason: Cough Carbidopa/Levodopa (Carbidopa/Levodopa 25/100 Tablet) 1.5 tab PO BID@0900,1800 [facility] Last Admin: 02/05/24 08:35 Dose: 1.5 tab Documented By: HEIDI Carbidopa/Levodopa (Carbidopa/Levodopa 25/100 Tablet) 1 tab PO BID@1200,2100 [facility] Last Admin: 02/05/24 12:45 Dose: 1 tab Documented By: HEIDI Docusate Sodium (Docusate Sodium 100 Mg Capsule) 100 mg PO DAILY PRN PRN Reason: Constipation Enoxaparin Sodium (Enoxaparin Sodium 40 Mg/0.4 Ml Syringe) 40 mg SUBCUT Q24H [facility] Last Admin: 02/04/24 17:33 Dose: 40 mg Documented By: BRONereida Glycopyrrolate (Glycopyrrolate 1 Mg Tablet) 1 mg PO BID [facility] Last Admin: 02/05/24 08:35 Dose: 1 mg Documented By: HEIDI Magnesium Oxide (Magnesium Oxide 400 Mg Tablet) 400 mg PO BIDPC [facility] Last Admin: 02/05/24 08:35 Dose: 400 mg Documented By: HEIDI Melatonin (Melatonin 3 Mg Tablet) 6 mg PO BEDTIME PRN PRN Reason: Insomnia Midodrine (Midodrine Hcl 2.5 Mg Tablet) 2.5 mg PO BID@0630,1630 [facility] Last Admin: 02/05/24 06:11 Dose: 2.5 mg Documented By: CAPO Ondansetron HCl (Ondansetron Hcl 4 Mg/2 Ml Vial) 4 mg IVPUSH Q8H PRN PRN Reason: Nausea and Vomiting Silver Sulfadiazine (Silver Sulfadiazine 1 % Cream 20 Gm Tube) 1 appl TOPICAL BID [facility] Last Admin: 02/05/24 12:14 Dose: 1 appl Documented By: HEIDI Sodium Chloride (0.9 % Sodium Chloride Flush 3 Ml Syringe) 3 ml IVFLUSH QSHIFT [facility] Last Admin: 02/05/24 08:36 Dose: 3 ml Documented By: HEIDI Labs 02/01/24 07:58 02/01/24 07:58 Assessment and Plan (1) Frailty: Status: Acute (2) Mobitz type 1 second degree atrioventricular block: Status: Acute Plan 78-year-old male with a PMH significant for Parkinson's disease, recently diagnosed paroxysmal AFib, orthostatic hypotension,?CAD, and aortic valve replacement who presents to the ED for evaluation of fall at home. Pt was treated with IVF. Pt will be admitted to the hospital under observation for treatment and further evaluation of symptomatic orthostatic hypotension. Orthostatic hypotension likely related to Parkinson continue midodrine, up with assists Bradycardia: EKG showed first-degree block Mobitz type 1 second-degree Wenckebach type heart block. Some areas look like 2:1. Currently asymptomatic normal TSH, pacer at bedside, atropine p.r.n. Cardiology evaluation noted -Considering overall advanced Parkinson's, frailty, very poor ambulation, recurrent falls, failure to thrive, pace maker not recommended Generalized weakness/frequent falls at home PT is recommending STR Parkinson's disorder Continue carbidopa levodopa CAD/HLD Continue aspirin, statin Gout Continue allopurinol d/w patient and his -DNR/DNI. Pt - rec rehab. DVT Prophylaxis: Lovenox ongoing hospitalisation -awaiting rehab placement. Quality Stroke Does the patient have a stroke diagnosis?: No VTE Prior VTE?: No VTE Risk Level:: Medical - moderate - high VTE Device Contraindication: Treatment Not Indicated VTE Drug Contraindication: N/A - Med Ordered
[2024-02-05] MEDS: Enoxaparin Sodium 40 MG/0.4 ML SYRINGE SUBCUT (17:19)
[2024-02-06] MEDS: Acetaminophen 325 MG TABLET 650 MG PO (02:51)
[2024-02-06] MEDS: Silver Sulfadiazine 1 % Cream 20 GM TUBE 1 APPL TOPICAL ×2 (03:02→09:12)
[2024-02-06 03:56] VITALS: BP 110/58; PULSE 76; RESP 16; TEMP 36.6; O2SAT 96
[2024-02-06] MEDS: Midodrine HCl 5 MG TABLET PO ×2 (06:54→16:24)
[2024-02-06 08:00] VITALS: BP 143/64; PULSE 76; RESP 16; TEMP 36.8; O2SAT 97
[2024-02-06] MEDS: Aspirin Enteric Coated 81 MG TABLET.DR PO (09:07)
[2024-02-06] MEDS: Magnesium Oxide 400 MG TABLET PO ×2 (09:08→16:24)
[2024-02-06] MEDS: allopurinoL 100 MG TABLET PO (09:08)
[2024-02-06] MEDS: Glycopyrrolate 1 MG TABLET PO (09:08)
[2024-02-06] MEDS: Carbidopa/Levodopa 25/100 TABLET 1.5 TAB PO ×2 (09:08→16:24)
[2024-02-06] MEDS: 0.9 % Sodium Chloride Flush 3 ML SYRINGE IVFLUSH ×2 (09:10)
--- NOTE | 2024-02-06 09:51 | MHC.CLN ---
F/U PT WITH INCREASED NUTRITION RISK R/T PRESSURE INJURY PO INTAKE 75-100% DIET RX: REGULAR CHOPPED-APPROPRIATE PT RECEIVING ENSURE BID TO PROMOTE WOUND HEALING SUPP PROVIDES 700KCALS, 40G PROTEIN WITH 100% ACCEPTANCE NOTED WOUND CHANGED FROM STAGE 2 TO STAGE U COCCYX PER WOUND NURSE & STAGE 1 R HEEL CONTINUE TO MONITOR PO INTAKE AND ENCOURAGE SUPPLEMENTS
--- NOTE | 2024-02-06 10:44 | P.DS_ITS ---
DS: Providers Provider Date of Service: 02/06/24 Date of admission: 02/03/24 13:10 Primary care physician: Nikolay Bruno MD Consults: 02/02/24 12:38 Consult to Cardiology Routine Consulting Provider: [facility] [place] Cardiovascular Services Reason for consultation: bradycardia /orthostaisis Has provider been notified: No 02/04/24 14:30 Consult to Wound Care Routine Reason for consultation: back pressure injury DS: Diagnosis Discharge Diagnosis (1) Frailty: Status: Acute (2) Mobitz type 1 second degree atrioventricular block: Status: Acute DS: Summary Hospital Course Hospital Course: admission hpi Chief Complaint: Dizziness/lightheadedness with fall at home Pt is a 78-year-old male with a PMH significant for Parkinson's disease, recently diagnosed paroxysmal AFib, orthostatic hypotension,?CAD, and aortic valve replacement who presents to the ED for evaluation of fall at home. Pt reports he was getting up out of his recliner when he felt lightheaded/dizzy and lost his footing, striking his left forehead on the coffee table. Denies LOC. In the ED pt was found to be positive for orthostatic hypotension, and required 6 sutures to close laceration to left forehead/eyebrow. Patient had similar fall at home on Sunday of this week, also with headstrike that required sutures to close laceration to forehead. Currently pt denies lightheadedness, dizziness, headache. No acute vision changes. Denies chest pain/pressure, palpitations. Shortness of breath. Denies fever, chills, nausea, vomiting, abdominal pain. Patient's notes was in rehab for 10 days in March of last year and started on midodrine for orthostatic hypotension. Reports that it initially worked well lately patient has been getting lightheaded and dizzy with standing. Has fallen approximately 6 times in the last 6 months. In the ED pt with elevated HR up to 98 and orthostatics positive x2. Labs were grossly unremarkable and around baseline for patient. Stable macrocytic anemia of 10/320. No significant electrolyte abnormalities. Renal function baseline. Hepatic function baseline. BNP elevated at 806 (lower than previous readings). Initial troponin 11.9 with repeat flat at 12.8. Albumin 3.0. UA negative for UTI. Tested negative for flu, RSV, COVID. CXR found subsegmental atelectasis in lung base but otherwise stable compared to previous. CT of head negative for acute intracranial findings. CT of face found no fracture or dislocation, but soft tissue swelling over left frontal bone, nose, and orbit. CT?of cervical spine found no fracture or dislocation but showed degenerative changes. EKG demonstrated possible accelerated junctional rhythm with pulmonary disease pattern. Pt was treated with IVF. Pt will be admitted to the hospital under observation for treatment and further evaluation of symptomatic orthostatic hypotension. Hospital course: The patient presented with dizziness, lightheadedness, and a fall. Investigations revealed orthostatic hypotension, likely related to Parkinson's disease and age-related autonomic insufficiency. Management included IV hydration and an increase in the dose of midodrine to 5 mg twice daily, which the patient was already taking. Additionally, the patient exhibited bradycardia due to Mobitz type 1 second-degree AV block, which may have contributed to syncope and the fall. Cardiology evaluation determined that, due to the patient's frailty, advanced Parkinson's disease, recurrent failure, and failure to thrive, a pacemaker was not deemed appropriate. The patient is currently maintaining a heart rate in the 70s without the need for a pacemaker. Physical therapy recommends strength training and the patient and their are in agreement with this recommendatio n. Parkinson's disorder Continue carbidopa levodopa CAD/HLD Continue aspirin, statin Gout Continue allopurinol DNR/DNI Time Attestation Discharge Coordination Time (in mins): 45 Quality: Safe Use of Opioids Does Pt have an Active Cancer Diagnosis on the Problem List?: No Quality: Stroke Does the patient have a stroke diagnosis?: No Physical Exam Vital Signs: Vital Signs: Last Vital Signs Temp 98.2 F 02/06/24 08:00 Pulse 76 02/06/24 08:00 Resp 16 02/06/24 08:00 BP 143/64 H 02/06/24 08:00 Pulse Ox 97 02/06/24 08:00 O2 Del Method Room Air 02/06/24 08:00 BMI result Body Mass Index 25.4 Discharge Plan Discharge Anticipated Discharge Date/Time: 02/06/24 10:50 Patient Disposition: Xfer SNF Discharge Diagnosis: Orthostatic HypOtension, bradycardia Referrals: Nikolay Bruno MD [Primary Care Provider] - 1 Week Discharge Medications: New midodrine 5 mg Tablet 5 mg PO BID@0630,1630 Qty: 60 0RF Continued magnesium oxide 400 mg magnesium Tablet 400 mg PO DAILY silver sulfadiazine 1 % cream 1 appl topical BID potassium chloride 10 mEq capsule, extended release 10 meq PO BID carbidopa-levodopa 25-100 mg tablet 1.5 tab PO BID@0900,1800 carbidopa-levodopa 25-100 mg tablet 1 tab PO BID@1200,2100 rosuvastatin 20 mg tablet 20 mg PO BEDTIME aspirin 81 mg tablet,delayed release (DR/EC) 81 mg PO DAILY acetaminophen [Tylenol Extra Strength] 500 mg tablet 1,000 mg PO BID allopurinol 100 mg tablet 100 mg PO BID glycopyrrolate 1 mg tablet 1 mg PO BID Rx Instructions: [facility] 1 tab in am and 1 tab at bedtime Discontinued midodrine 2.5 mg tablet 2.5 mg PO TID@0600,1200,1800 Discharge Orders: Discharge Order (Routine); Ordered 02/06/24 Ordered By: Sergio Cruz Diet: Advance to usual diet Activity on Discharge: As tolerated Stand Alone Forms: Patient Portal Discharge page Print Language: Haitian Care Plan Goals: recovery from deconditioning and ultimate return to baseline functioning status Health Concerns: orthostatic hypotension, syncope, heart block Plan of Treatment: Take midodrine as directed, be careful when getting up from sitting position, he should use a walker and request assistance Assessment: see above
--- NOTE | 2024-02-06 11:30 | MHC.CM.PN ---
Patient has been medically cleared for dc to SNF/STR today. Patient will dc to [facility] today at 5:30 PM, via [facility]. CM met with Patient at bedside and verbally addressed IMM (Physically too difficult to sign)with Patient and CM spoke with /HCP/Julia at listed #. Patient and are aware of and in agreement with the dc plan.
[2024-02-06 11:46] VITALS: BP 93/60; PULSE 82; RESP 16; TEMP 36.4; O2SAT 97
[2024-02-06] MEDS: Carbidopa/Levodopa 25/100 TABLET 1 TAB PO (12:19)
[2024-02-06 16:00] VITALS: BP 96/50; PULSE 68; RESP 16; TEMP 36.1; O2SAT 99
[2024-02-06] MEDS: Enoxaparin Sodium 40 MG/0.4 ML SYRINGE SUBCUT (16:23)
== END 2024-02-06 19:30 | disposition skilled nursing facility (03) | DRG 312 ==
LOC: HO.ED 14:50 → HO.EDOVER 17:02 → HO.IMC 17:26
PROVIDERS: Internal Medicine; Physician Assistant; Admitting Provider Student in an Organized Health Care Education/Training Program; Emergency Provider Emergency Medicine; PCP Internal Medicine; Visit Provider Internal Medicine
DX: I95.1 Orthostatic hypotension (principal); I25.10 Atherosclerotic heart disease of native coronary artery without angina pectoris; I48.0 Paroxysmal atrial fibrillation; S01.112A Laceration without foreign body of left eyelid and periocular area, initial encounter; Z66 Do not resuscitate; R29.6 Repeated falls; I44.1 Atrioventricular block, second degree; G20.A1 Parkinson's disease without dyskinesia, without mention of fluctuations; W01.190A Fall on same level from slipping, tripping and stumbling with subsequent striking against furniture, initial encounter; E78.5 Hyperlipidemia, unspecified; L89.302 Pressure ulcer of unspecified buttock, stage 2; M10.9 Gout, unspecified; Z95.1 Presence of aortocoronary bypass graft; Z95.2 Presence of prosthetic heart valve; Z87.891 Personal history of nicotine dependence; Z79.82 Long term (current) use of aspirin; Z79.899 Other long term (current) drug therapy
CPT/HCPCS: 36415; 70450; 70486; 71045; 72125; 80053; 81001; 82550; 83735; 83880; 84443; 84484; 85025; 93005; 97162; 97530; 99285; J1650; J7120; P9047

== ENCOUNTER → 2024-02-01 16:28 | Outpatient (BNV) | payer MEDICARE, SELFPAY | PROVIDERS: Admitting Provider Student in an Organized Health Care Education/Training Program; Emergency Provider Emergency Medicine; PCP Internal Medicine; Visit Provider Student in an Organized Health Care Education/Training Program | DX: R54 Age-related physical debility (principal); I44.1 Atrioventricular block, second degree | CPT/HCPCS: 99222; 99231; 99232; 99233; 99239; 99497 ==

== ENCOUNTER → 2024-02-01 16:28 | Outpatient (BNV) | payer OTHER, MEDICARE, SELFPAY | PROVIDERS: Admitting Provider Student in an Organized Health Care Education/Training Program; Emergency Provider Emergency Medicine; PCP Internal Medicine; Visit Provider Internal Medicine | DX: I44.1 Atrioventricular block, second degree (principal); I95.1 Orthostatic hypotension; I25.10 Atherosclerotic heart disease of native coronary artery without angina pectoris; Z95.3 Presence of xenogenic heart valve; W19.XXXA Unspecified fall, initial encounter; R54 Age-related physical debility; R00.0 Tachycardia, unspecified; I44.4 Left anterior fascicular block | CPT/HCPCS: 93010; 99223 ==

== ENCOUNTER → 2024-02-02 13:03 | Outpatient (BNV) | payer OTHER, MEDICARE, SELFPAY | PROVIDERS: Admitting Provider Student in an Organized Health Care Education/Training Program; Emergency Provider Emergency Medicine; PCP Internal Medicine; Visit Provider Internal Medicine | DX: I44.0 Atrioventricular block, first degree (principal); I49.3 Ventricular premature depolarization | CPT/HCPCS: 93010 ==

== ENCOUNTER 2024-03-12 09:05 | Outpatient (AMB) | payer OTHER, SELFPAY ==
--- NOTE | 2024-03-12 09:14 | MHC.OFFVIS ---
Vital Signs 03/12/24 09:15 BP 112/62 Blood Pressure Location Lt brachial Position Sitting Respiration 16 Pulse 75 Pulse Source Pulse Oximeter Pulse Oximetry (%) 98 Oxygen Delivery Method Room Air Intake Visit Reasons: Follow Up - Confirmed Intake Note: Pt presents for a 5 month follow up for Parkinson's. Publicity Expert Required: No Allergies No Known Allergies Allergy (Verified 03/12/24 09:14) Medication List - Last Reconciled 03/12/24 by Gwendolyn Ballesteros MD acetaminophen (Tylenol Extra Strength) 1,000 mg PO BID allopurinol 100 mg PO BID aspirin 81 mg PO DAILY carbidopa-levodopa 25-100 mg 1 tab PO QID furosemide 40 mg PO .tiw glycopyrrolate 1 mg PO BID magnesium oxide 400 mg PO DAILY midodrine 5 mg PO BID potassium chloride ER 10 mEq PO BID rosuvastatin 20 mg PO BEDTIME silver sulfadiazine 1% 1 appl topical BID HPI Comments Details: 78 y/o right handed male patient presents for follow up of Parkinson's disease. He had 2 falls since last visit . Both were when he was transferring to the commode from his recliner - he says he felt dizzy and fell. He also says he didnt wait for few minutes after standing up.He was in the hospital and then in Rehab . Pt's reports that patient is having home OT and PT once a week. He also has daily personal care help but not Sunday. Pt reports he feels slow and having short steps. Pt reports frequent light headedness and dizziness, when he changes his position and even he just sitting in the chair. He uses walker at home and public. Visiting nurse come once a week to check his vital signs. He tries to drinks more water. He is on Sinemet 25/100 QID for past 1 week. He has been awake since then. He has sore on his buttocks- [facility] is checking and treating He denies constipation. He denies hallucination. [facility] Medical History (Updated 03/12/24 @ 09:29 by Gwendolyn Ballesteros MD) Parkinson's disease with neurogenic orthostatic hypotension Frequent falls Dyspnea on exertion Abnormal CT scan, chest Shortness of breath on exertion Heel ulcer Ulcer of sacral region, stage 1 Parkinson disease Alcoholic liver disease Orthostatic hypotension PAF (paroxysmal atrial fibrillation) Atherosclerotic cardiovascular disease Surgical History S/P hip replacement Status post aortic valve replacement with bioprosthetic valve History of coronary artery bypass graft x 3 (~10/2019) Family History Father CVD (cardiovascular disease) Mother No problems noted. Social History Unable to assess alcohol history related to: Unknown Alcohol intake: former Patient Tobacco Use Status: Former Tobacco user Advance Directives Date on File: 03/20/23 Physical Exam Vital Signs: Last Vital Signs Pulse 75 03/12/24 09:15 Resp 16 03/12/24 09:15 BP 112/62 03/12/24 09:15 Pulse Ox 98 03/12/24 09:15 Oxygen Delivery Method Room Air 03/12/24 09:15 Const General: cooperative, healthy appearing and no acute distress Nutritional Appearance: obese Orientation/consciousness: patient oriented x3 HEENT Head: Yes normal to inspection Neck Other: mild antecollis and restricted range of motion Neuro Other: Moderate decreased blink and facial expression Voice- hypophonia No tremors Fine Finger movements - mildly decreased dariusz l>R Alternating hand movements - decreased dariusz Hand movements - decreased dariusz Foot taps- decreased dariusz No cog wheel rigidity gait -uses walker, slow. General: patient oriented x3 and no focal motor deficits Cranial nerves: Yes CN's II-XII intact bilaterally, Yes Bilaterally intact EOM present, Yes Normal facial strength present and Yes Midline tongue present Cognition (Neuro): abnormal cognition (repeats questions frequently) Motor exam (neuro): 5/5 motor strength present throughout and Normal motor muscle tone present throughout Coordination: [id number] test normal Assessment & Plan Assessment & Plan (1) Parkinson's disease with neurogenic orthostatic hypotension: Code(s): G90.3 - Multi-system degeneration of the autonomic nervous system Category: Medical Plan Continue sinemet 25/100 qid - compliance stressed. The patient will call me the dose of midodrine . I will increase to 5mg tid - if the patient is already on it i will add northera Advised patient to increase fluids to prevent light headedness and fall. Increase physical activity, and well balanced diet. Advised patient to use walker to prevent falls. Continue to do home physical therapy for gait training and bilateral legs strength. Medications: Changed From midodrine 5 mg PO BID@0630,1630 60 tabs 0RF To midodrine am and chicho 5 mg PO BID 60 tabs 0RF Coding Level of Care Code Est Pt Level 4 (94375) Complex EM visit Add On G2211 Diagnoses Parkinson's disease with neurogenic orthostatic hypotension G90.3
[2024-03-12 09:15] VITALS: BP 112/62; PULSE 75; RESP 16; O2SAT 98
== END 2024-03-12 09:50 | disposition home or self-care (01) ==
PROVIDERS: PCP Internal Medicine; Visit Provider Psychiatry & Neurology Neurology
DX: G90.3 Multi-system degeneration of the autonomic nervous system (principal)
CPT/HCPCS: 99214; G2211

== ENCOUNTER → 2024-03-12 09:05 | Outpatient (BNVA) | payer OTHER, SELFPAY | PROVIDERS: PCP Internal Medicine; Visit Provider Psychiatry & Neurology Neurology | DX: G90.3 Multi-system degeneration of the autonomic nervous system (principal) | CPT/HCPCS: 99212 ==

== ENCOUNTER 2024-03-20 11:20 | Outpatient (REF) | payer MEDICARE, SELFPAY ==
[2024-03-20 13:15] LABS: Anion Gap 9 (12-20); Blood Urea Nitrogen 10 mg/dL (9-16); Calcium 8.1 mg/dL (8.4-10.2); Carbon Dioxide 32 mmol/L (22-29); Chloride 104 mmol/L (96-108); Estimated Glomerular Filt Rate > 60; Glucose Random 98 mg/dL (60-115); Potassium 2.8 mmol/L (3.3-5.1); Sodium 142 mmol/L (135-145)
== END 2024-03-20 11:21 | disposition home or self-care (01) ==
LOC: HO.LNP 11:20
PROVIDERS: Visit Provider Internal Medicine
DX: E87.5 Hyperkalemia (principal)
CPT/HCPCS: 80048

== ENCOUNTER 2024-03-26 11:24 | Outpatient (REF) | payer MEDICARE, SELFPAY ==
[2024-03-26 12:31] LABS: Anion Gap 8 (12-20); Blood Urea Nitrogen 12 mg/dL (9-16); Calcium 8.1 mg/dL (8.4-10.2); Carbon Dioxide 30 mmol/L (22-29); Chloride 105 mmol/L (96-108); Estimated Glomerular Filt Rate > 60; Glucose Random 72 mg/dL (60-115); Potassium 3.2 mmol/L (3.3-5.1); Sodium 140 mmol/L (135-145)
[2024-03-26 13:03] LABS: Folate 9.6 ng/mL (> or = 4.0); Vitamin B12 302 pg/mL (200-900)
== END 2024-03-26 11:25 | disposition home or self-care (01) ==
LOC: HO.HVNA 11:24
PROVIDERS: Visit Provider Nurse Practitioner Family
DX: G20.A1 Parkinson's disease without dyskinesia, without mention of fluctuations (principal)
CPT/HCPCS: 36415; 80048; 82607; 82746

== ENCOUNTER 2024-05-19 14:59 | Outpatient (AMB) | payer MEDICARE, SELFPAY ==
--- NOTE | 2024-05-19 12:38 | A.OFFVIS_ITS ---
Vital Signs 05/19/24 12:43 BP 108/61 Blood Pressure Location Rt brachial Position Sitting Pulse 60 Pulse Source Pulse Oximeter Intake Visit Reasons: over due follow up Safety Counselor Required: No Allergies No Known Allergies Allergy (Verified 03/12/24 09:14) Medication List - Last Reconciled 05/19/24 by Jovanni Busby MD acetaminophen (Tylenol Extra Strength) 1,000 mg PO BID allopurinol 100 mg PO BID aspirin 81 mg PO DAILY carbidopa-levodopa 25-100 mg 1 tab PO QID furosemide 40 mg PO .tiw glycopyrrolate 1 mg PO BID magnesium oxide 400 mg PO DAILY midodrine 5 mg PO BID potassium chloride ER 10 mEq PO BID rosuvastatin 20 mg PO BEDTIME silver sulfadiazine 1% 1 appl topical BID HPI Comments Details: This is a tele visit as the patient has apparently been put on hospice care. Hence unable to come. Discussed with patient as well as over the phone. He has many comorbidities including coronary disease, bypass surgery, aortic valve replacement and Parkinson's disease. The last few weeks, he has been going down quite a bit. Very deconditioned. Minimal activity. Also incontinent. From cardiac, no specific complaints. Per , hospice started yesterday. [facility] Medical History (Updated 05/19/24 @ 13:24 by Jovanni Busby MD) Parkinson's disease with neurogenic orthostatic hypotension Frequent falls Dyspnea on exertion Abnormal CT scan, chest Shortness of breath on exertion Heel ulcer Ulcer of sacral region, stage 1 Parkinson disease Alcoholic liver disease Orthostatic hypotension PAF (paroxysmal atrial fibrillation) Atherosclerotic cardiovascular disease Surgical History S/P hip replacement Status post aortic valve replacement with bioprosthetic valve History of coronary artery bypass graft x 3 (~10/2019) Family History Father CVD (cardiovascular disease) Mother No problems noted. Social History Unable to assess alcohol history related to: Unknown Alcohol intake: former Patient Tobacco Use Status: Former Tobacco user Advance Directives Date on File: 03/20/23 Review of Systems Const Denies chills, Denies fatigue, Denies fever(s), Reports lethargy, Reports mal aise, Reports weakness, Denies weight gain and Denies weight loss ENT Denies dizziness Card Denies chest pain, Denies leg edema, Denies lightheadedness, Denies palpitations, Denies dyspnea on exertion, Denies orthopnea and Denies other Resp Denies cough and Denies dyspnea on exertion GI Denies hematochezia and Denies change in stool character Musc Denies abnormal gait, Denies muscle weakness, Denies numbness, Denies radiating pain into limb and Denies tingling Neuro Denies abnormal gait, Denies dizziness, Denies numbness, Denies tingling and Reports weakness Endo Denies fatigue and Denies palpitations Physical Exam Vital Signs: Last Vital Signs Pulse 60 05/19/24 12:43 BP 108/61 05/19/24 12:43 Telehealth Telehealth Telehealth Platform: Telephone Location of provider rendering services: practice address Location of patient: address on file Patient Identification confirmed using: Name, : Yes Telehealth method: voice only Patient verbally consented to treatment: Yes Patient verbally consented to billing insurance company: Yes Patient informed of any privacy concerns related to visit: Yes Minutes spent on Phone/Video with Pt.: 10 Assessment & Plan Assessment & Plan (1) Atherosclerotic cardiovascular disease: Code(s): I25.10 - Atherosclerotic heart disease of [place] coronary artery without angina pectoris Category: Medical (2) Status post aortic valve replacement with bioprosthetic valve: Code(s): Z95.3 - Presence of xenogenic heart valve Category: Surgical (3) PAF (paroxysmal atrial fibrillation): Code(s): I48.0 - Paroxysmal atrial fibrillation Category: Medical (4) Orthostatic hypotension: Code(s): I95.1 - Orthostatic hypotension Category: Medical (5) Heart block atrioventricular: Code(s): I44.30 - Unspecified atrioventricular block Category: Medical (6) Parkinson disease: Code(s): G20 - Parkinson's disease Category: Medical (7) Hospice care: Code(s): Z51.5 - Encounter for palliative care Category: Medical Plan Many comorbidities but reasonably stable and also hospice. Discussed with patient as well as . Recommend that they discuss with the hospice nurse and possibly stop medications like statins. Otherwise, no specific cardiac recommendations. Goals will be comfort oriented. Advised him to contact us with any concerns. Coding Level of Care Code Tele Est Pt Level 3 (30750) Diagnoses Atherosclerotic cardiovascular disease I25.10 Status post aortic valve replacement with bioprosthetic valve Z95.3 PAF (paroxysmal atrial fibrillation) I48.0 Orthostatic hypotension I95.1 Heart block atrioventricular I44.30 Parkinson disease G20 Hospice care Z51.5
[2024-05-19 12:43] VITALS: BP 108/61; PULSE 60
== END 2024-05-19 15:02 | disposition home or self-care (01) ==
LOC: HO.HCS 14:59
PROVIDERS: PCP Internal Medicine; Visit Provider Internal Medicine
DX: I25.10 Atherosclerotic heart disease of native coronary artery without angina pectoris (principal); Z95.3 Presence of xenogenic heart valve; I48.0 Paroxysmal atrial fibrillation; I95.1 Orthostatic hypotension; I44.30 Unspecified atrioventricular block; G20 Parkinson's disease; Z51.5 Encounter for palliative care
CPT/HCPCS: 99213

== ENCOUNTER → 2024-05-19 14:59 | Outpatient (BNVA) | payer MEDICARE, SELFPAY | PROVIDERS: PCP Internal Medicine; Visit Provider Internal Medicine | DX: I25.10 Atherosclerotic heart disease of native coronary artery without angina pectoris (principal); Z95.3 Presence of xenogenic heart valve; I48.0 Paroxysmal atrial fibrillation; I95.1 Orthostatic hypotension; I44.30 Unspecified atrioventricular block; Z51.5 Encounter for palliative care ==

== ENCOUNTER 2024-08-05 08:20 | Emergency (ER) | payer OTHER, SELFPAY ==
--- NOTE | ~2024-08-05 | CT_ITS ---
EXAMINATION: CT HEAD WITHOUT CONTRAST CLINICAL INFORMATION: Fall and head strike COMPARISON: CT head from 02/01/2024 TECHNIQUE: Contiguous axial imaging was performed from the skull base to vertex without intravenous administration of contrast. This CT examination was performed using dose optimization techniques as appropriate, variously including the following: *Automated exposure control *Adjustment of mA and/or kV according to patient size (this includes techniques or standardized protocols for targeted exams where dose is matched to indication/reason for exam; i.e. extremities or head) *Use of iterative reconstruction technique DLP: 742.35 mGy-cm FINDINGS: There is no evidence of acute intracranial hemorrhage or territorial infarction. Chronic white matter small vessel ischemic changes. Cerebral atrophy with commensurate ventricular changes. No abnormal mass effect or midline shift is seen. [place] to white matter differentiation is well preserved. No extra-axial fluid collections are identified. The ventricles are normal in size. There is no abnormal attenuation within the brain parenchyma. The osseous structures and soft tissues are normal. The mastoid air cells and visualized portions of the paranasal sinuses are well aerated. Atherosclerotic calcifications. CT/CT head/brain wo IV con IMPRESSION: 1. No acute intracranial pathology. 2. Chronic white matter small vessel ischemic changes. EXAMINATION: Noncontrast CT scan of the cervical spine. INDICATION: Fall COMPARISON: CT cervical spine from 02/01/2024 TECHNIQUE: Helical, multidetector axial images were obtained from the occiput to the upper thorax. Coronal and sagittal reformats of the cervical spine were provided for interpretation. DLP: 306.43 mGy-cm FINDINGS: No acute fractures or dislocations of the cervical spine are seen. Reversal of the normal cervical curvature. Multilevel degenerative changes. Anatomic alignment and positioning of the vertebral bodies and posterior elements is noted. The atlantoaxial joint and craniovertebral articulations are normal without evidence of subluxation. There is no prevertebral soft tissue swelling. Emphysematous changes of the visualized lung canas. IMPRESSION: 1. No acute visible fracture or dislocation. 2. Reversal of the normal cervical curvature. 3. Multilevel degenerative changes. Electronically signed by: Yaneli Sotomayor MD 08/05/2024 09:35 AM [facility] [place]
--- NOTE | ~2024-08-05 | CT_ITS ---
EXAMINATION: CT HEAD WITHOUT CONTRAST CLINICAL INFORMATION: Fall and head strike COMPARISON: CT head from 02/01/2024 TECHNIQUE: Contiguous axial imaging was performed from the skull base to vertex without intravenous administration of contrast. This CT examination was performed using dose optimization techniques as appropriate, variously including the following: *Automated exposure control *Adjustment of mA and/or kV according to patient size (this includes techniques or standardized protocols for targeted exams where dose is matched to indication/reason for exam; i.e. extremities or head) *Use of iterative reconstruction technique DLP: 742.35 mGy-cm FINDINGS: There is no evidence of acute intracranial hemorrhage or territorial infarction. Chronic white matter small vessel ischemic changes. Cerebral atrophy with commensurate ventricular changes. No abnormal mass effect or midline shift is seen. [place] to white matter differentiation is well preserved. No extra-axial fluid collections are identified. The ventricles are normal in size. There is no abnormal attenuation within the brain parenchyma. The osseous structures and soft tissues are normal. The mastoid air cells and visualized portions of the paranasal sinuses are well aerated. Atherosclerotic calcifications. CT/CT cervical spine wo IV con IMPRESSION: 1. No acute intracranial pathology. 2. Chronic white matter small vessel ischemic changes. EXAMINATION: Noncontrast CT scan of the cervical spine. INDICATION: Fall COMPARISON: CT cervical spine from 02/01/2024 TECHNIQUE: Helical, multidetector axial images were obtained from the occiput to the upper thorax. Coronal and sagittal reformats of the cervical spine were provided for interpretation. DLP: 306.43 mGy-cm FINDINGS: No acute fractures or dislocations of the cervical spine are seen. Reversal of the normal cervical curvature. Multilevel degenerative changes. Anatomic alignment and positioning of the vertebral bodies and posterior elements is noted. The atlantoaxial joint and craniovertebral articulations are normal without evidence of subluxation. There is no prevertebral soft tissue swelling. Emphysematous changes of the visualized lung canas. IMPRESSION: 1. No acute visible fracture or dislocation. 2. Reversal of the normal cervical curvature. 3. Multilevel degenerative changes. Electronically signed by: Yaneli Sotomayor MD 08/05/2024 09:35 AM [facility] [place]
[2024-08-05 08:32] VITALS: BP 123/63; BP 172/72; PULSE 96; RESP 22; TEMP 36.4; BMI 21.6
--- NOTE | 2024-08-05 08:39 | ED_ITS ---
HPI - General Adult General Chief complaint: Fall Stated complaint: From home, fall w h/s, -LOC, -thinners Time Seen by Provider: 08/05/24 08:39 Source: patient and EMS Mode of arrival: EMS Limitations: no limitations History of Present Illness ED Provider: Kamille Krishnamurthy PA-C HPI narrative: 79-year-old male on hospice with a PMH of Parkinsons, paroxysmal afib, and interstitial lung disease presents to the ED today via EMS after a fall at home while he was attempting to transfer into the tub. + HS, no LOC. He sustained a laceration to his forehead and skin tears on his left bicep and right forearm. He is not in any blood thinners. He has a history of multiple falls at home. Endorses pain in forehead. Denies SOB, chest pain, dizziness, N/V or abd pain. Related Data Home Medications ?Medication ?Instructions ?Recorded ?Confirmed acetaminophen 500 mg tablet 1,000 mg PO BID Pain 09/15/20 05/19/24 (Tylenol Extra Strength) aspirin 81 mg tablet,delayed 81 mg PO DAILY 09/15/20 05/19/24 release allopurinol 100 mg tablet 100 mg PO BID 07/18/21 05/19/24 glycopyrrolate 1 mg tablet 1 mg PO BID excessive drooling. 05/07/23 05/19/24 magnesium oxide 400 mg PO DAILY 01/28/24 05/19/24 potassium chloride 10 mEq 10 meq PO BID 02/01/24 05/19/24 capsule,extended release rosuvastatin 20 mg tablet 20 mg PO BEDTIME 02/01/24 05/19/24 silver sulfadiazine 1 % topical 1 appl topical BID ulcer 02/01/24 05/19/24 cream furosemide 40 mg tablet 40 mg PO .tiw 03/12/24 05/19/24 Previous Rx's ?Medication ?Instructions ?Recorded midodrine 5 mg tablet 5 mg PO BID #60 tabs 03/12/24 carbidopa 25 mg-levodopa 100 mg 1 tab PO QID #120 tabs 04/02/24 tablet Allergies Allergy/AdvReac Type Severity Reaction Status Date / Time No Known Allergies Allergy Verified 08/05/24 08:32 Review of Systems 2 Constitutional: Constitutional: Reports no additional constitutional complaints, Denies chills, Denies fever(s) and Denies night sweats Eyes: Eyes: Reports no additional eye complaints, Denies blurry vision, Denies change in vision, Denies diplopia, Denies eye discharge, Denies loss of vision and Denies eye pain ENT: Denies dizziness and Reports other (pain forehead) Cardiovascular: Cardiovascular: Reports no additional cardiovascular complaints, Denies chest pain, Denies lightheadedness, Denies Loss of Consciousness and Denies dyspnea Respiratory: Respiratory: Reports no additional respiratory complaints and Denies dyspnea Gastrointestinal: Gastrointestinal: Reports no additional gastrointestinal complaints, Denies abdominal pain, Denies melena, Denies hematochezia, Denies change in bowel habits and Denies change in stool character Genitourinary: Genitourinary: Reports no additional male genitourinary complaints, Denies hematuria, Denies oliguria, Denies difficulty urinating, Denies dysuria, Denies urinary frequency, Denies urinary hesitancy, Denies urinary incontinence and Denies urinary urgency Musculoskeletal: Musculoskeletal: Reports no additional musculoskeletal complaints, Denies numbness and Denies tingling Neurologic: Denies dizziness, Denies loss of vision, Denies numbness and Denies tingling Psychiatric: Psychiatric: Reports no additional psychiatric complaints Endocrine: Endocrine: Reports no additional endocrine complaints Hematologic/Lymphatic: Hematologic/Lymphatic: Reports no additional hematologic/lymphatic complaints Allergic/Immunologic: Allergic/Immunologic: Reports no additional allergic/immunologic complaints [facility] Past Medical History Medical History (Updated 08/05/24 @ 11:02 by KEV Harrell) Parkinson's disease with neurogenic orthostatic hypotension Frequent falls Dyspnea on exertion Abnormal CT scan, chest Shortness of breath on exertion Heel ulcer Ulcer of sacral region, stage 1 Parkinson disease Alcoholic liver disease Orthostatic hypotension PAF (paroxysmal atrial fibrillation) Atherosclerotic cardiovascular disease Surgical History S/P hip replacement Status post aortic valve replacement with bioprosthetic valve History of coronary artery bypass graft x 3 (~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 Social History Social History Unable to assess alcohol history related to: Unknown Alcohol intake: former Patient Tobacco Use Status: Former Tobacco user Advance Directives: Yes Advance Directives on File: Yes Advance Directives Date on File: 03/20/23 Do you have a plan to hurt others: No Plan Physical Exam ED Vital Signs: Vital Signs - 24 hr 08/05/24 08:32 08/05/24 10:10 Temperature 97.6 F Pulse Rate 96 89 Respiratory Rate 22 H 16 Blood Pressure 123/63 118/74 Pulse Oximetry 96 Oxygen Delivery Method Room Air Room Air BMI result Body Mass Index 21.6 Const General: cooperative, no acute distress, alert and awake Nutritional Appearance: well nourished Orientation/consciousness: patient oriented x3 Limitations: no limitations HENMT Head: Yes normocephalic and Yes laceration (2.5 cm laceration to forehead) Head images: 2 1. 2.5 cm laceration Ears: hearing grossly normal bilaterally and external ears normal General nose exam: Normal external nose present, no nasal discharge noted and no epistaxis Face and sinus: Yes normal facial exam, No abrasion and No laceration Mouth: Normal oral and palatal mucosa present, no drooling and no muffled voice Eyes General: appearance normal, both eyes and all related structures Periorbital: periorbital findings normal Eyelids: Yes eyelids normal Conjunctivae: conjunctivae normal Pupils: Equal, round and reactive pupils present EOM: EOMs intact bilaterally Neck Neck: Yes normal visual inspection, Yes full ROM and Yes no lymphadenopathy Chest Chest palpation & inspection: normal inspection of the chest Resp Effort & Inspection: normal respiratory effort and able to speak in complete sentences GI Inspection: Yes normal to inspection Skin Trauma: abrasion (5cm x 5cm L bicep with skin flap, 1cm x 4cm R forearm abrasion) Full body images: 2 1. 5 cm x 5 cm abrasion 2. 1 cm x 4 cm abrasion Neuro General: patient oriented x3 and moves all extremities Cranial nerves: Yes Equal, round and reactive pupils present Cognition (Neuro): normal cognition Extrem Other: small abrasion / skin tear present to the left lateral upper arm and right lateral upper arm General: Yes full ROM and Yes capillary refill normal Psych Appearance: grossly normal Mental Status: mental status grossly normal Affect: normal affect Attitude: cooperative Thought process: Normal thought process present Thought content: Normal thought content present Insight: Good insight present (Psych) Medications Administered Discontinued Medications Generic Name Dose Route Start Last Admin Trade Name Freq PRN Reason Stop Dose Admin Bacitracin 2 appl 08/05/24 09:49 08/05/24 10:02 Bacitracin Oint 0.9 Gm Packet TOPICAL 08/05/24 09:50 2 appl ONCE ONE Administration Protocol Lidocaine/Epinephrine/Tetracaine 1 ml 08/05/24 09:49 08/05/24 10:02 Lidocaine/Racepinep/Tetracaine 3 Ml Gel.Pf.Grisel TOPICAL 08/05/24 09:50 1 ml ONCE ONE Administration Procedures Laceration Laceration 1: Site: face Size (cm): 2.5 Description: irregular Depth: simple, single layer Local Anesthetic: other anesthetic (LET) Pre-repair: wound explored, irrigated extensively and deep structures intact Skin layer closed with: other (prolene) Size (cm): 4-0 Number of sutures: 3 Technique: simple, interrupted Medical Decision Making Medical Decision Making MDM Narrative: Patient is an 79 year old assigned male at with a history of parkinson disease, PAF, and a mobitz heart block presenting to the emergency department today after a mechanical fall. Patient's physical exam was as noted in the physical exam portion of this note. Patient's CT head and c-spine showed no acute process. I explained my physical exam findings as well as all test results to the patient and the patient's . I answered all questions asked by the patient and the patient's . Patient's laceration was repaired, without incident, per procedure note. Patient's bilateral upper arm skin abrasions were covered with bacitracin and dressed with non stick gauze. I stressed the importance of the patient taking his medication as directed (either prescribed or as the over the counter packaging recommends). I stressed the importance of the patient following up with his primary care provider. I stressed the importance of the patient returning to the emergency department immediately if his symptoms were to worsen or if he were to develop any dizziness, shortness of breath, difficulty breathing, chest pain, blurry vision, loss of vision, nausea, vomiting, abdominal pain, fever, chills, back pain, or any other complaints. Patient and the patient's verbalized agreement and understanding with this treatment plan and discharge. Differential Diagnosis Differential Diagnoses: The differential diagnosis associated with the presentation includes Fall Abrasion Laceration Admission/Observation Consideration of admission/observation: Escalation of care including admission/observation considered Patient would have been admitted to the hospital had his work up had any findings where hospital admission was appropriate and his clinical presentation warranted hospital admission. Independent Interpretation I performed an independent interpretation of an: CT Scan Interpretation: My interpretation is in agreement with the radiologist's impression of these imaging studies. L EXAMINATION: CT HEAD WITHOUT CONTRAST CLINICAL INFORMATION: Fall and head strike COMPARISON: CT head from 02/01/2024 TECHNIQUE: Contiguous axial imaging was performed from the skull base to vertex without intravenous administration of contrast. This CT examination was performed using dose optimization techniques as appropriate, variously including the following: *Automated exposure control *Adjustment of mA and/or kV according to patient size (this includes techniques or standardized protocols for targeted exams where dose is matched to indication/reason for exam; i.e. extremities or head) *Use of iterative reconstruction technique DLP: 742.35 mGy-cm FINDINGS: There is no evidence of acute intracranial hemorrhage or territorial infarction. Chronic white matter small vessel ischemic changes. Cerebral atrophy with commensurate ventricular changes. No abnormal mass effect or midline shift is seen. [place] to white matter differentiation is well preserved. No extra-axial fluid collections are identified. The ventricles are normal in size. There is no abnormal attenuation within the brain parenchyma. The osseous structures and soft tissues are normal. The mastoid air cells and visualized portions of the paranasal sinuses are well aerated. Atherosclerotic calcifications. CT/CT head/brain wo IV con IMPRESSION: 1. No acute intracranial pathology. 2. Chronic white matter small vessel ischemic changes. EXAMINATION: Noncontrast CT scan of the cervical spine. INDICATION: Fall COMPARISON: CT cervical spine from 02/01/2024 TECHNIQUE: Helical, multidetector axial images were obtained from the occiput to the upper thorax. Coronal and sagittal reformats of the cervical spine were provided for interpretation. DLP: 306.43 mGy-cm FINDINGS: No acute fractures or dislocations of the cervical spine are seen. Reversal of the normal cervical curvature. Multilevel degenerative changes. Anatomic alignment and positioning of the vertebral bodies and posterior elements is noted. The atlantoaxial joint and craniovertebral articulations are normal without evidence of subluxation. There is no prevertebral soft tissue swelling. Emphysematous changes of the visualized lung canas. IMPRESSION: 1. No acute visible fracture or dislocation. 2. Reversal of the normal cervical curvature. 3. Multilevel degenerative changes. Electronically signed by: Yaneli Sotomayor MD 08/05/2024 09:35 AM EST Dictated By: Yaneli Sotomayor MD Signed By: Electronically signed by Yaneli Sotomayor MD 08/05/24 0997 Radiology Impression Discussion of test interpretation with radiology: I have reviewed the radiologist's reading. Independent Historian Clinical information obtained from an independent historian. History obtained from or confirmed by: Spouse (patient's provided additional history and confirmed the history provided by the patient) and EMS (EMS provided additional history and confirmed the history provided by the patient and his ) Discharge Plan Discharge Clinical Impression: Forehead laceration, Fall, Abrasion Patient Disposition: Home, Self-Care Instructions: Care For Your Stitches (DC), Laceration (DC), Fall Prevention for Older Adults (ED) Additional Instructions: Do NOT soak the affected area. Have your sutures (3) removed in 7-10 days. Follow up with your primary care provider. Return to the emergency department immediately if your symptoms worsen or if you develop any dizziness, shortness of breath, difficulty breathing, chest pain, blurry vision, loss of vision, nausea, vomiting, abdominal pain, fever, chills, back pain, or any other complaints. Prescriptions: No Action carbidopa-levodopa 25-100 mg tablet 1 tab PO QID Qty: 120 6RF magnesium oxide 400 mg magnesium Tablet 400 mg PO DAILY silver sulfadiazine 1 % cream 1 appl topical BID potassium chloride 10 mEq capsule, extended release 10 meq PO BID rosuvastatin 20 mg tablet 20 mg PO BEDTIME aspirin 81 mg tablet,delayed release (DR/EC) 81 mg PO DAILY acetaminophen [Tylenol Extra Strength] 500 mg tablet 1,000 mg PO BID allopurinol 100 mg tablet 100 mg PO BID midodrine 5 mg tablet 5 mg PO BID Qty: 60 0RF Rx Instructions: am and chicho furosemide 40 mg tablet 40 mg PO .tiw glycopyrrolate 1 mg tablet 1 mg PO BID Rx Instructions: [facility] 1 tab in am and 1 tab at bedtime Referrals: Nikolay Bruno MD [Primary Care Provider] - Print Language: Upper Sorbian
--- NOTE | 2024-08-05 08:41 | PC.NURSE ---
skin tears noted to bilateral upper extremities, hematoma/lac on forehead. bleeding is controlled at this time
[2024-08-05] MEDS: Lidocaine/Racepinep/Tetracaine 3 ML GEL.PF.APP 1 ML TOPICAL (10:02)
[2024-08-05] MEDS: Bacitracin Oint 0.9 GM PACKET 2 APPL TOPICAL (10:02)
[2024-08-05 10:10] VITALS: BP 118/74; PULSE 89; RESP 16; O2SAT 96
--- NOTE | 2024-08-05 10:11 | PC.NURSE ---
let gel applied to forehead lac. bilateral skin tears bacitracin applied and wrapped w/ non adherent pads. collar previously removed. call javed within reach
--- NOTE | 2024-08-05 10:22 | MHC.CM.ED ---
Received notification that patient is active with [facility]. Return referral made in [facility] so agency can follow for d/c needs.
--- NOTE | 2024-08-05 12:26 | PC.NURSE ---
patient changed into own clothing, watching tv sitting in recliner with chair alarm on
--- NOTE | 2024-08-05 16:40 | PC.NURSE ---
Update given to pts , concerned about wait time ambulance and given updated ETA. Also wants to make sure pt gets his Parkinson medication for the afternoon. Provider to be made aware.
[2024-08-05] MEDS: Carbidopa/Levodopa 25/100 TABLET 1 TAB PO (17:26)
[2024-08-05 18:42] VITALS: BP 118/74; PULSE 89; RESP 16; TEMP 36.4; O2SAT 96
== END 2024-08-05 18:42 | disposition home or self-care (01) ==
PROVIDERS: Emergency Provider Emergency Medicine; PCP Internal Medicine
DX: S00.81XA Abrasion of other part of head, initial encounter (principal); S01.81XA Laceration without foreign body of other part of head, initial encounter; R51.9 Headache, unspecified; M54.2 Cervicalgia; I48.0 Paroxysmal atrial fibrillation; W18.2XXA Fall in (into) shower or empty bathtub, initial encounter; Y93.89 Activity, other specified; Y92.002 Bathroom of unspecified non-institutional (private) residence as the place of occurrence of the external cause; Y99.8 Other external cause status; Z87.891 Personal history of nicotine dependence; Z79.01 Long term (current) use of anticoagulants
CPT/HCPCS: 12051; 70450; 72125; 99284